=== PATIENT | female | born 1960 | race Caucasian/White ===

== ENCOUNTER 2019-12-25 10:03 | Outpatient (REF) | payer MEDICAID, OTHER, SELFPAY | END 2019-12-25 10:04 | disposition home or self-care (01) | LOC: HO.LAB 10:03 | PROVIDERS: Visit Provider Internal Medicine | DX: Z20.828 Contact with and (suspected) exposure to other viral communicable diseases (principal) | CPT/HCPCS: U0003 ==

== ENCOUNTER → 2020-05-14 19:28 | Outpatient (REF) | payer MEDICAID, OTHER, SELFPAY | LOC: HO.SL 19:28 | PROVIDERS: Visit Provider Internal Medicine | DX: G47.00 Insomnia, unspecified (principal) | CPT/HCPCS: 95810 ==

== ENCOUNTER 2020-05-31 13:26 | Outpatient (REF) | payer MEDICAID, OTHER, SELFPAY ==
--- NOTE | ~2020-05-31 | XR_ITS ---
EXAMINATION: CERVICAL SPINE AND SACRUM X-RAYS CLINICAL INFORMATION: Pain COMPARISON: None TECHNIQUE: 5 views of the cervical spine and 3 views of the sacrum FINDINGS: Cervical spine: Bone alignment is normal. No fracture or dislocation is seen. There is degenerative spondylosis and degenerative disc disease at C2-C3 and C4-C5. There is right-sided neuroforaminal narrowing from bony osteophyte at C2-C3 and C4-C5. Evaluation of left-sided neural foramina is limited due to patient positioning. Prevertebral soft tissues are normal. There are soft tissue calcifications posterior to the C4 spinous process. Sacrum: Bone alignment is normal. No fracture or dislocation is seen. The hip joints and sacroiliac joints are normal. Soft tissues are normal. XR/XR sacrum coccyx min 2V IMPRESSION: Cervical spine: Degenerative changes. Limited evaluation of the left neural foramen due to patient positioning. Sacrum and coccyx: Unremarkable exam
--- NOTE | ~2020-05-31 | XR_ITS ---
EXAMINATION: CERVICAL SPINE AND SACRUM X-RAYS CLINICAL INFORMATION: Pain COMPARISON: None TECHNIQUE: 5 views of the cervical spine and 3 views of the sacrum FINDINGS: Cervical spine: Bone alignment is normal. No fracture or dislocation is seen. There is degenerative spondylosis and degenerative disc disease at C2-C3 and C4-C5. There is right-sided neuroforaminal narrowing from bony osteophyte at C2-C3 and C4-C5. Evaluation of left-sided neural foramina is limited due to patient positioning. Prevertebral soft tissues are normal. There are soft tissue calcifications posterior to the C4 spinous process. Sacrum: Bone alignment is normal. No fracture or dislocation is seen. The hip joints and sacroiliac joints are normal. Soft tissues are normal. XR/XR cervical spine min 6V IMPRESSION: Cervical spine: Degenerative changes. Limited evaluation of the left neural foramen due to patient positioning. Sacrum and coccyx: Unremarkable exam
== END 2020-05-31 13:27 | disposition home or self-care (01) ==
LOC: HO.XRAY 13:26
PROVIDERS: PCP Internal Medicine; Visit Provider Internal Medicine
DX: M53.3 Sacrococcygeal disorders, not elsewhere classified (principal)
CPT/HCPCS: 72052; 72220

== ENCOUNTER 2020-06-08 13:17 | Outpatient (REF) | payer MEDICAID, OTHER, SELFPAY ==
--- NOTE | ~2020-06-08 | US_ITS ---
EXAMINATION: US ABDOMEN COMPLETE CLINICAL INFORMATION: Abnormal findings on diagnostic imaging. COMPARISON: CT abdomen and pelvis 04/20/2017. TECHNIQUE: Real-time imaging of the abdominal viscera. FINDINGS: PANCREAS: Normal. ABDOMINAL AORTA: The proximal, mid, and distal segments are normal in caliber. INFERIOR VENA CAVA: Visualized portions are normal. LIVER: The liver is normal in size. The liver contour is normal. Parenchymal echogenicity is normal. There are 2 simple appearing cyst within liver, one within the lateral segment (1.7 cm), the other within the caudate (1.6 cm). There is no intrahepatic biliary duct dilatation seen. GALLBLADDER: Surgically absent. COMMON BILE DUCT: Normal in caliber measuring 0.4 cm in diameter. RIGHT KIDNEY: Normal. No hydronephrosis. No renal calculi or focal parenchymal lesions. The kidney measures 9.3 cm in maximum dimension. LEFT KIDNEY: Normal. No hydronephrosis. No renal calculi or focal parenchymal lesions. The kidney measures 8.7 cm in maximum dimension. SPLEEN: Surgically absent. FREE FLUID: None. US/US abdomen complete IMPRESSION: There are 2 stable simple cysts within the liver, one within the lateral segment, the other within the caudate measuring up to 1.7 cm and 1.6 cm, respectively. No suspicious liver lesions. Cholecystectomy and splenectomy
== END 2020-06-08 13:18 | disposition home or self-care (01) ==
LOC: HO.US 13:17
PROVIDERS: Visit Provider Internal Medicine
DX: R93.5 Abnormal findings on diagnostic imaging of other abdominal regions, including retroperitoneum (principal)
CPT/HCPCS: 76700

== ENCOUNTER 2020-07-20 08:15 | Outpatient (REF) | payer MEDICAID, OTHER, SELFPAY ==
--- NOTE | ~2020-07-20 | CT_ITS ---
NECK CT WITH IV CONTRAST MAXILLOFACIAL CT WITH IV CONTRAST INDICATION: Chronic otitis externa bilaterally. Cervicalgia. COMPARISON: Cervical spine radiographs 05/31/2020. TECHNIQUE: Multidetector CT acquisition of the neck was obtained following the administration of 65cc of Omnipaque 350IV contrast. Multiplanar reformats were acquired and utilized for image interpretation. This CT examination was performed using dose optimization techniques as appropriate, variously including the following: *Automated exposure control *Adjustment of mA and/or kV according to patient size (this includes techniques or standardized protocols for targeted exams where dose is matched to indication/reason for exam; i.e. extremities or head) *Use of iterative reconstruction technique FINDINGS: There is no cervical lymphadenopathy. There is heterogeneous enhancement of the right parotid gland immediately below the right cartilaginous external auditory canal in a possible similar appearance to a lesser extent of the left parotid gland immediately below the left internal auditory canal. No definite cellulitis within the adjacent soft tissues. Findings could reflect bilateral parotitis however if symptoms do not improve following conservative therapy, a MRI would be recommended to exclude an intraparotid mass lesion. The submandibular glands are normal. The thyroid gland is normal. No contour abnormality or pathologic enhancement is seen within the oral cavity or pharyngeal mucosal space. No retropharyngeal fluid collection is seen. The laryngeal structures are normal. The parapharyngeal fat is preserved. The carotid sheath vasculature opacify normally. Retropharyngeal course of the left common carotid artery and the internal carotid arteries bilaterally. No extra mucosal soft tissue mass or fluid collection is seen. The superior mediastinum is unremarkable. The lung apices are clear. The maxillary sinuses, sphenoid sinuses, ethmoid air cells, and frontal sinuses are clear. The mastoid air cells and middle ear cavities are clear bilaterally. The TMJs are unremarkable. Inner ear structures are unremarkable. There is leftward deviation of the cartilaginous nasal septum and there is rightward deviation of the bony cartilaginous nasal septal junction. No periapical disease. 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 There is multilevel cervical spondylosis. Uncovertebral joint spurring and facet arthropathy result in moderate to severe right C3-C4 and severe right C5-C6 bony foraminal stenosis. The imaged portions of the brain parenchyma are unremarkable. CT/CT soft tissue neck w con IMPRESSION: - There is heterogeneous enhancement of the right parotid gland immediately below the right cartilaginous external auditory canal in a possible similar appearance to a lesser extent of the left parotid gland immediately below the left internal auditory canal. No definite cellulitis within the adjacent soft tissues. Findings could reflect bilateral parotitis however if symptoms do not improve following conservative therapy, a MRI would be recommended to exclude an intraparotid mass lesion. - No active sinus disease. The mastoid air cells and middle ear cavities are clear. - There is leftward deviation of the cartilaginous nasal septum and there is rightward deviation of the bony cartilaginous nasal septal junction. 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 - Congenital C2-C3 fusion. There is multilevel cervical spondylosis. Uncovertebral joint spurring and facet arthropathy result in moderate to severe right C3-C4 and severe right C5-C6 bony foraminal stenosis. - Retropharyngeal course of the left common carotid artery and the internal carotid arteries bilaterally.
[2020-07-20] MEDS: iohexoL 350 MG/ML 100 ML INFUS..BTL IV (10:43)
== END 2020-07-20 08:16 | disposition home or self-care (01) ==
LOC: HO.CT 08:15
PROVIDERS: PCP Internal Medicine; Visit Provider Internal Medicine
DX: M54.2 Cervicalgia (principal); H60.63 Unspecified chronic otitis externa, bilateral; R93.5 Abnormal findings on diagnostic imaging of other abdominal regions, including retroperitoneum
CPT/HCPCS: 70487; 70491; Q9967

== ENCOUNTER 2020-09-06 09:17 | Outpatient (REF) | payer MEDICAID, OTHER, SELFPAY ==
--- NOTE | ~2020-09-06 | MM_ITS ---
EXAMINATION: MM SCREENING DIGITAL BREAST TOMOSYNTHESIS, BILATERAL CLINICAL INFORMATION: Screening. Asymptomatic. The lifetime risk of breast cancer based on the Tyrer-Cuzick Model is 6%. COMPARISON: Mammography: 08/20/2019, 05/30/2018, 02/25/2017, outside exam 11/06/2016 ([facility]) TECHNIQUE: Digital breast tomosynthesis is performed in both the craniocaudal and mediolateral oblique views along with computer-aided detection (CAD). Synthesized 2D images are generated from the tomosynthesis. Additional right MLO view is provided. FINDINGS: There are scattered areas of fibroglandular density (ACR BI-RADS breast composition Category b). Parenchymal pattern is similar to prior studies. There are scattered bilateral stable nodularity. No developing density or architectural abnormality or abnormal calcifications. There is a dermal lesion marked with skin marker posterior medial left breast and a dermal lesion posterior inferior medial right breast also marked with skin marker. The axilla are unremarkable. MM/MM tomosynthesis screening BI IMPRESSION: No mammographic evidence of malignancy. ASSESSMENT: BI-RADS 2: Benign RECOMMENDATION: Routine annual mammography screening. This patient's information was entered into a reminder system with a target due date for their next mammogram.
== END 2020-09-06 09:18 | disposition home or self-care (01) ==
LOC: HO.MAMMO 09:17
PROVIDERS: Visit Provider Advanced Practice Midwife
DX: Z12.31 Encounter for screening mammogram for malignant neoplasm of breast (principal)
CPT/HCPCS: 77063; 77067

== ENCOUNTER 2021-10-02 14:20 | Outpatient (REF) | payer MEDICAID, SELFPAY ==
--- NOTE | ~2021-10-02 | MM_ITS ---
EXAMINATION: MM SCREENING DIGITAL BREAST TOMOSYNTHESIS, BILATERAL CLINICAL INFORMATION: Screening. Asymptomatic. The lifetime risk of breast cancer based on the Tyrer-Cuzick Model is 6%. COMPARISON: Mammography: 09/06/2020, 08/20/2019, 05/30/2018, 02/25/2017, outside mammography 11/06/2016 ([facility]). TECHNIQUE: Digital breast tomosynthesis is performed in both the craniocaudal and mediolateral oblique views along with computer-aided detection (CAD). Synthesized 2D images are generated from the tomosynthesis. FINDINGS: There are scattered areas of fibroglandular density (ACR BI-RADS breast composition Category b). There are chronic scattered benign-appearing smooth nodularity in both breasts, similar to prior studies. No abnormal calcifications. No architectural abnormality or developing density. The axilla and skin contours are unremarkable. No significant changes from prior exams. MM/MM tomosynthesis screening BI IMPRESSION: No mammographic evidence of malignancy. ASSESSMENT: BI-RADS 2: Benign RECOMMENDATION: Routine annual mammography screening. This patient's information was entered into a reminder system with a target due date for their next mammogram.
== END 2021-10-02 14:21 | disposition home or self-care (01) ==
LOC: HO.MAMMO 14:20
PROVIDERS: PCP Internal Medicine; Visit Provider Internal Medicine
DX: Z12.31 Encounter for screening mammogram for malignant neoplasm of breast (principal)
CPT/HCPCS: 77063; 77067

== ENCOUNTER 2021-11-21 08:49 | Outpatient (REF) | payer MEDICAID, SELFPAY ==
--- NOTE | ~2021-11-21 | US_ITS ---
EXAMINATION: US ABDOMEN COMPLETE CLINICAL INFORMATION: Disease of liver. COMPARISON: Ultrasound abdomen complete 06/08/2020. CT abdomen and pelvis 04/20/2017. TECHNIQUE: Real-time imaging of the abdominal viscera. FINDINGS: PANCREAS: Normal. ABDOMINAL AORTA: The proximal, mid, and distal segments are normal in caliber. INFERIOR VENA CAVA: Visualized portions are normal. LIVER: The liver is normal in size. The liver contour is normal. Parenchymal echogenicity is normal. Audible hepatic cysts are identified measuring up to 1.8 cm in the right lobe. These appear simple. There is no intrahepatic biliary duct dilatation seen. GALLBLADDER: Surgically absent. COMMON BILE DUCT: Normal in caliber measuring 0.6 cm in diameter. RIGHT KIDNEY: Normal. No hydronephrosis. No renal calculi or focal parenchymal lesions. The kidney measures 9.5 cm in maximum dimension. LEFT KIDNEY: Normal. No hydronephrosis. No renal calculi or focal parenchymal lesions. The kidney measures 9.0 cm in maximum dimension. SPLEEN: Normal. The spleen measures 7.2 cm in maximum dimension. FREE FLUID: None. US/US abdomen complete IMPRESSION: Multiple liver cysts which appear simple. No suspicious mass. Otherwise unremarkable abdominal ultrasound.
== END 2021-11-21 08:50 | disposition home or self-care (01) ==
LOC: HO.US 08:49
PROVIDERS: Visit Provider Internal Medicine
DX: K76.89 Other specified diseases of liver (principal)
CPT/HCPCS: 76700

== ENCOUNTER → 2022-10-08 15:00 | Outpatient (BNV) | payer MEDICAID, SELFPAY | PROVIDERS: PCP Internal Medicine; Visit Provider Radiology Diagnostic Radiology | DX: Z12.31 Encounter for screening mammogram for malignant neoplasm of breast (principal) | CPT/HCPCS: 77063; 77067 ==

== ENCOUNTER 2022-10-08 15:12 | Outpatient (REF) | payer MEDICAID, SELFPAY | END 2022-10-08 15:13 | disposition home or self-care (01) | LOC: HO.MAMMO 15:12 | PROVIDERS: PCP Internal Medicine; Visit Provider Internal Medicine | DX: Z12.31 Encounter for screening mammogram for malignant neoplasm of breast (principal) | CPT/HCPCS: 77063; 77067 ==

== ENCOUNTER 2022-11-07 11:30 | Emergency (ER) | payer MEDICAID, SELFPAY ==
--- NOTE | ~2022-11-07 | XR_ITS ---
EXAMINATION: XR LUMBOSACRAL SPINE CLINICAL INFORMATION: Back pain COMPARISON: Lumbar spine radiograph from 10/30/2018 TECHNIQUE: Three views of the lumbosacral spine. FINDINGS: 5 nonrib-bearing lumbar-type vertebral bodies. No acute visible fracture or dislocation. Very slight grade 1 anterolisthesis of L3 on L4. Very slight grade 1 retrolisthesis of L4 and L5. Mild multilevel degenerative changes with osteophyte formation and lower lumbar spine facet arthropathy. Vertebral body heights and disc spaces are otherwise maintained. Posterior elements are intact. Paraspinal soft tissues are unremarkable. Bowel gas is unremarkable. Surgical clips right upper quadrant abdomen. XR/XR lumbar spine 2-3V IMPRESSION: 1. No acute visible fracture or dislocation. 2. Very slight grade 1 anterolisthesis of L3 on L4 and very slight grade 1 retrolisthesis of L4 and L5. 3. Mild multilevel degenerative changes.
--- NOTE | ~2022-11-07 | XR_ITS ---
EXAMINATION: XR HIP, LEFT CLINICAL INFORMATION: Left hip pain COMPARISON: None available. TECHNIQUE: Multiple views of the pelvis 2 views the left hip FINDINGS: No acute visible fracture or dislocation. Mild degenerative images of the bilateral femoral acetabular joints with joint space narrowing and periarticular osteophyte formation. Enthesopathy along the bilateral greater trochanters. Degenerative arthropathy of the lumbosacral spine. Joint spaces and alignment are otherwise maintained. Soft tissues are unremarkable. XR/XR hip LT w PEL1V IMPRESSION: 1. No acute visible fracture or dislocation. 2. Mild degenerative images of the bilateral femoral acetabular joints. 3. Enthesopathy along the bilateral greater trochanters.
[2022-11-07 12:12] VITALS: BP 113/63; PULSE 75; RESP 18; TEMP 36.6; O2SAT 98; BMI 14.0
--- NOTE | 2022-11-07 12:13 | ED_ITS ---
HPI - General Adult General Chief complaint: Extremity Injury, Lower Stated complaint: L leg pain Time Seen by Provider: 11/07/22 14:09 Source: patient, family, RN notes reviewed and old records reviewed Mode of arrival: ambulatory History of Present Illness HPI narrative: 62-year-old female with past medical history arthritis presenting to the ED complaining of acute on chronic left-sided low back/hip pain radiating down left lower extremity with associated tingling. Admits pain has been going on for some time however worsened last night with difficulty ambulating secondary to pain. Denies known injury/trauma or fall, weakness, incontinence/retention, fever. Took muscle relaxer and Tylenol at home without relief. Related Data Previous Rx's Medication Instructions Recorded cyclobenzaprine 5 mg tablet 5 mg PO Q8H PRN pain (scale score 11/07/22 7-10) 5 days #14 tabs hydrocodone 5 mg-acetaminophen 325 1 tab PO Q8H PRN pain, severe 3 11/07/22 mg tablet days #9 tabs lidocaine 5 % topical patch 1 patch topical DAILY PRN pain #30 11/07/22 (Lidoderm) ea naproxen 500 mg tablet 500 mg PO BID PRN pain 10 days #20 11/07/22 tabs Allergies Allergy/AdvReac Type Severity Reaction Status Date / Time No Known Allergies Allergy Verified 11/07/22 12:12 [No Known Allergies*] Review of Systems Review of Systems: Constitutional: No Fever, No Chills ENT/Mouth: No Ear Pain, No Nasal Congestion, No Sinus Pain, No Hoarseness, No sore throat, No Rhinorrhea, No Swallowing Difficulty Cardiovascular: No Chest Pain, No SOB Respiratory: No Cough, No Sputum, No Wheezing Gastrointestinal: No Nausea, No Vomiting, No Diarrhea, No Constipation, No Abdominal pain Genitourinary: No Dysuria, No Urinary Frequency, No Hematuria, No Urinary Incontinence/retention, No Urgency, No Flank Pain Musculoskeletal: +joint pain, No Myalgias, No Joint Swelling Skin: No Skin Lesions, No rash Neuro: No Weakness, No Numbness, + Paresthesias Yes all other systems are reviewed and are negative Constitutional: Constitutional: Reports as per [facility] Past Medical History Attestation statement: The following information was validated with the patient. Source: old records reviewed Social History Social History Advance Directives: No Physical Exam ED Vital Signs: Vital Signs - 24 hr 11/07/22 12:12 Temperature 98 F Pulse Rate 75 Respiratory Rate 18 Blood Pressure 113/63 Pulse Oximetry 98 Oxygen Delivery Method Room Air BMI result Body Mass Index 14.0 Const General: cooperative, healthy appearing and no acute distress Orientation/consciousness: patient oriented x3 Limitations: no limitations HENMT Head: Yes normal to inspection and Yes atraumatic Ears: hearing grossly normal bilaterally General nose exam: Normal external nose present Face and sinus: Yes normal facial exam Eyes General: appearance normal, both eyes and all related structures EOM: EOMs intact bilaterally Neck Neck: Yes normal visual inspection and Yes no meningeal signs Resp Effort & Inspection: normal respiratory effort and no respiratory distress Cardio Rate: regular rate Heart sounds: S1 normal heart sound present and S2 normal heart sound present GI Inspection: Yes normal to inspection Palpation (GI): Soft to palpation, nontender, no guarding and not rigid General: Yes no CVA tenderness Back/Spine/Pelvis Other: No midline cervical/thoracic/lumbar spinous tenderness/step-off or deformity. + left-sided lower lumbar MSK tenderness to palpation reproducing subjective complaint. No ecchymosis/erythema or rash Back: no CVA tenderness Skin Rashes: no rashes Wounds: no wounds Neuro Other: Strength intact throughout. No saddle anesthesia. Sensation intact to light touch. Neurovascular intact distally. Ambulating with antalgic gait General: patient oriented x3, tone normal, moves all extremities and no meni ngeal signs Cranial nerves: Yes CN's II-XII intact bilaterally Gait exam (Neuro): Antalgic gait present, not ataxic and not wide-based Extrem General: Yes normal to inspection Course Course Course Narrative: This is an RME: Additional HPI, ROS, PE not included below will be deferred to primary provider. This is a [id number], with a hx of arthritis, presenting to the ER with complaints of left sided back pain and left leg pain since yesterday. The patient reports that she has a history of back pain currently going through physical therapy for. She states that while she was standing up history day she felt her low back pain exacerbated and now has been radiating down her left leg. Denies any urinary symptoms. No red flag back symptoms. Vital signs stable. Patient stable to return back to the waiting on mental treatment room becomes available. Plan: X-ray left hip lumbar spine XR hip LT w PEL1V/XR lumbar spine 2-3V IMPRESSION: 1. No acute visible fracture or dislocation. 2. Mild degenerative images of the bilateral femoral acetabular joints. 3. Enthesopathy along the bilateral greater trochanters. Results discussed with patient including worrisome signs and symptoms and strict return precautions, and when to return to the emergency department. They verbalized understanding and feel safe for discharge at this time. Medical Decision Making Medical Decision Making MDM Narrative: 62-year-old female with past medical history arthritis presenting to the ED complaining of acute on chronic left-sided low back/hip pain radiating down left lower extremity with associated tingling. On exam vital signs stable, NAD, nontoxic appearing with physical exam as above with reproducible MSK tenderness. Abdomen soft/nontender, no CVAT. No red flag symptoms or saddle anesthesia. Ambulating with antalgic gait. Concern for MSK pain/strain and sciatica versus osteoarthritis flare. Low suspicion for pyelo/renal stone contour intra- abdominal pathology, cauda equina/cord compression or acute fracture Plan: X-rays ordered in triage, pain control Please refer to course for remaining clinical decision making, interpretation of labs/imaging results, and discussions with consultants and/or family members. Differential Diagnosis Differential Diagnoses: The differential diagnosis associated with the presentation includes As above Independent Interpretation I performed an independent interpretation of an: Plain X-Ray Radiology Impression Discussion of test interpretation with radiology: I have reviewed the radiologist's reading. External Record Review External record reviewed: Inpatient record, Office record, Outpatient record, Prior outpatient labs, Prior outpatient radiology, Primary care record and Outside ED record Tests considered The following testing was considered but not selected: As above Prescription Management I considered prescription management with: Pain Medication Discharge Plan Discharge Clinical Impression: Sciatica Patient Disposition: Home, Self-Care Instructions: Sciatica (ED) Additional Instructions: Your x-ray shows arthritic changes please follow-up with her doctor as well as surgical specialist Your pain is likely musculoskeletal/sciatica Flexeril is a muscle relaxer, take at night as it makes you drowsy, do not drive, drink alcohol, or operate machinery while taking it Naproxen as an anti-inflammatory / pain medication, take with food Lidoderm patches are numbing patches, apply to painful area [place] as an opiate pain medication, take only when pain is severe for the next 3 days In addition take Tylenol at home If symptoms persist or worsen, pain becomes unbearable, you developed urinary retention or incontinence, or weakness return to the ED Prescriptions: New hydrocodone-acetaminophen 5-325 mg tablet 1 tab PO Q8H PRN (Reason: pain, severe) 3 Days Qty: 9 0RF Rx Instructions: Partial Fill upon patient request. lidocaine [Lidoderm] 5 % adhesive patch,medicated 1 patch topical DAILY MDD remove after 12 hours PRN (Reason: pain) Qty: 30 0RF Rx Instructions: leave on most painful area for up to 12 hrs naproxen 500 mg tablet 500 mg PO BID PRN (Reason: pain) 10 Days Qty: 20 0RF cyclobenzaprine 5 mg tablet 5 mg PO Q8H PRN (Reason: pain (scale score 7-10)) 5 Days Qty: 14 0RF Ref[place] [facility] [place] Conner Smith MD [Primary Care Provider] - Nato Ball MD, PhD [Physician] -
[2022-11-07] MEDS: Cyclobenzaprine HCl 10 MG TABLET PO (14:51)
[2022-11-07] MEDS: oxyCODONE HCl Immed Release 5 MG TABLET PO (14:52)
[2022-11-07] MEDS: Lidocaine 4 % Patch ADH..PATCH 1 PATCH TRANSDERMA (14:53)
[2022-11-07] MEDS: Ketorolac Tromethamine 30 MG/ML VIAL IM (14:53)
== END 2022-11-07 15:10 | disposition home or self-care (01) ==
PROVIDERS: Emergency Provider Student in an Organized Health Care Education/Training Program; PCP Internal Medicine
DX: M54.42 Lumbago with sciatica, left side (principal); Z79.899 Other long term (current) drug therapy
CPT/HCPCS: 72100; 73502; 96372; 99283; 99284; J1885

== ENCOUNTER 2022-12-25 10:59 | Outpatient (REF) | payer MEDICAID, SELFPAY ==
--- NOTE | ~2022-12-25 | XR_ITS ---
EXAMINATION: XR HIP, RIGHT CLINICAL INFORMATION: Right hip pain for one month with normal width of the pubic COMPARISON: None available. TECHNIQUE: Two views of the right hip. FINDINGS: No fracture. Alignment is anatomic. Hip joint space is maintained. Soft tissues are unremarkable. There is widening of the pubic symphysis. XR/XR hip RT min 2V IMPRESSION: Normal bony abnormality of the right hip. Widening of the pubic symphysis.
[2022-12-25 14:06] LABS: TSH reflex Free T4 0.28 uIU/mL (0.32-4.0)
[2022-12-25 14:48] LABS: Free T4 (Free Thyroxine) 1.27 ng/dL (0.71-1.85)
== END 2022-12-25 11:00 | disposition home or self-care (01) ==
LOC: HO.HHCL 10:59
PROVIDERS: Visit Provider Internal Medicine
DX: E03.9 Hypothyroidism, unspecified (principal); Z13.89 Encounter for screening for other disorder
CPT/HCPCS: 36415; 73502; 84439; 84443

== ENCOUNTER 2023-03-27 11:15 | Outpatient (REF) | payer MEDICAID, SELFPAY ==
[2023-03-27 14:02] LABS: TSH reflex Free T4 2.46 uIU/mL (0.32-4.0)
== END 2023-03-27 11:16 | disposition home or self-care (01) ==
LOC: HO.HHCL 11:15
PROVIDERS: Visit Provider Internal Medicine
DX: E03.9 Hypothyroidism, unspecified (principal)
CPT/HCPCS: 36415; 84443

== ENCOUNTER 2023-09-03 10:50 | Outpatient (REF) | payer MEDICAID, SELFPAY ==
[2023-09-03 14:07] LABS: Cholesterol 176 mg/dL (<200); HDL Cholesterol 65 mg/dL (>40); LDL Cholesterol Calculated 98 mg/dL (<100); Triglycerides 65 mg/dL (<150); Uric Acid 5.2 mg/dL (2.4-5.7)
[2023-09-03 14:15] LABS: TSH reflex Free T4 2.13 uIU/mL (0.32-4.0)
== END 2023-09-03 10:51 | disposition home or self-care (01) ==
LOC: HO.HHCL 10:50
PROVIDERS: Visit Provider Internal Medicine
DX: E03.9 Hypothyroidism, unspecified (principal); M25.561 Pain in right knee; M25.562 Pain in left knee; G89.29 Other chronic pain
CPT/HCPCS: 36415; 80061; 84443; 84550

== ENCOUNTER 2023-11-07 10:40 | Emergency (ER) | payer MEDICAID, SELFPAY ==
--- NOTE | ~2023-11-07 | US_ITS ---
EXAMINATION: US TRIPLEX LOWER EXTREMITY, RIGHT CLINICAL INFORMATION: Calf pain, recent flight COMPARISON: None available. TECHNIQUE: Color-flow triplex imaging with spectral analysis and compression Doppler were performed on the right lower extremity. FINDINGS: Respiratory variation, normal compression and augmented flow are noted throughout the right lower extremity. The visualized common femoral vein, superficial femoral vein, profunda femoral vein, popliteal vein and midcalf peroneal and posterior tibial venous segments show no evidence of deep venous thrombosis. There is no Louise's cyst. US/US venous duplex LE RT IMPRESSION: No evidence of deep venous thrombosis involving the right lower extremity. Electronically signed by: Claribel Miller MD 11/07/2023 12:00 PM EDT
--- NOTE | ~2023-11-07 | XR_ITS ---
EXAMINATION: XR LUMBOSACRAL SPINE CLINICAL INFORMATION: Right lumbar and hip pain COMPARISON: Lumbar spine x-ray on 11/07/2022 TECHNIQUE: Three views of the lumbosacral spine. FINDINGS: Minimal anterolisthesis at L3-L4. Vertebral body heights are maintained. Multilevel loss of intervertebral disc space with endplate degenerative changes. There is facet arthropathy in the lower lumbar spine. XR/XR lumbar spine 2-3V IMPRESSION: Mild degenerative disease of the lumbar spine. Electronically signed by: Claribel Miller MD 11/07/2023 12:01 PM EDT
[2023-11-07 11:05] VITALS: BP 125/78; PULSE 89; RESP 16; TEMP 36.8; O2SAT 98; BMI 28.5
--- NOTE | 2023-11-07 11:11 | ED.EXTPRO ---
HPI - Extremity Problem General Chief complaint: Extremity Problem Stated complaint: R leg numbness Time Seen by Provider: 11/07/23 12:01 Source: patient Mode of arrival: ambulatory Limitations: no limitations History of Present Illness ED Provider: Ronaldo Main PA-C HPI Narrative: 63-year-old female history of arthritis and thyroid disease presents to ED for back pain radiating down right leg with sharp tingling sensation right lower extremity. Patient [place] Patient denies any chest pain or shortness of breath. Patient states back pain exacerbation similar to her sciatica pain she has in the past. Patient denies any recent trauma. Patient denies any coughing up blood chest pain or shortness of breath. Patient denies any urinary/bowel incontinence. Patient denies any paralysis of lower extremity or inability to walk. Patient has history of chronic back pain arthritis Related Data Previous Rx's ?Medication ?Instructions ?Recorded cyclobenzaprine 5 mg tablet 5 mg PO Q8H PRN pain (scale score 11/07/22 7-10) 5 days #14 tabs hydrocodone 5 mg-acetaminophen 325 1 tab PO Q8H PRN pain, severe 3 11/07/22 mg tablet days #9 tabs lidocaine 5 % topical patch 1 patch topical DAILY PRN pain #30 11/07/22 (Lidoderm) ea naproxen 500 mg tablet 500 mg PO BID PRN pain 10 days #20 11/07/22 tabs walker #1 ea 11/07/22 cyclobenzaprine 10 mg tablet 10 mg PO BEDTIME PRN muscle spasm 11/07/23 #7 tabs lidocaine 4 % topical patch 1 patch topical DAILY PRN pain #30 11/07/23 ea prednisone 20 mg tablet 40 mg (2 x 20 mg) PO DAILY 5 days 11/07/23 #10 tabs Allergies Allergy/AdvReac Type Severity Reaction Status Date / Time No Known Allergies Allergy Verified 11/07/23 11:10 [No Known Allergies*] Review of Systems Review of Systems: Chronic back pain radiating down right leg Yes all other systems are reviewed and are negative [facility] Social History Social History Advance Directives: No Advance Directives Information Provided: Yes Patient : No Physical Exam Vital Signs: Vital Signs: Last Vital Signs Temp 98.3 F 11/07/23 13:57 Pulse 89 11/07/23 13:57 Resp 16 11/07/23 13:57 BP 125/78 11/07/23 13:57 Pulse Ox 98 11/07/23 13:57 O2 Del Method Room Air 11/07/23 13:57 BMI result Body Mass Index 28.5 Const: General: cooperative, healthy appearing, comfortable, no acute distress, well developed, alert and awake Orientation/consciousness: patient oriented x3 HEENT: Head: Yes normal to inspection, Yes No palpable skull fracture present, Yes normocephalic and Yes atraumatic Ears: hearing grossly normal bilaterally, external ears normal, TM's normal bilaterally, TM normal on the right, TM normal on the left, EAC's normal, mastoids normal and no periauricular adenopathy Throat: Yes posterior oropharynx normal, Yes tonsils normal and Yes uvula midline Eyes: General: appearance normal, both eyes and all related structures Neck: Neck: Yes normal visual inspection, Yes full ROM, Yes no lymphadenopathy, Yes no meningeal signs, Yes trachea midline, Yes supple, No anterior neck swelling and No tender Chest: Chest palpation & inspection: normal inspection of the chest and normal palpation of entire chest wall Resp: Effort & Inspection: normal respiratory effort and able to speak in complete sentences Auscultation: clear to auscultation bilaterally Cardio: Jugular venous distension: no JVD Heart sounds: S1 normal heart sound present and S2 normal heart sound present GI: Inspection: Yes normal to inspection Palpation (GI): Soft to palpation, not firm, nontender, no guarding and not rigid : General: No CVA tenderness and Yes no CVA tenderness Back/Spine/Pelvis: Other: Negative for spinous tenderness Back: no CVA tenderness, No CVA tenderness and No back tenderness Back/spine/pelvis image: 1. Positive for gluteus marya sciatica tenderness on palpation. Negative for erythema, ecchymosis, mass, or deformity. Skin: General skin exam: no rashes or lesions noted, elasticity normal and turgor normal Neuro: General: patient oriented x3, gait normal, tone normal, moves all extremities, Normal light touch and pain sensation, no meningeal signs, no focal motor deficits, CN's II-XI intact bilaterally and normal sensation to monofilament Extrem: Other: Bilateral lower extremity negative for swelling, pitting edema, or calf tenderness. Bilateral lower extremity motor/neuro/vascular exam intact. General: Yes normal to inspection, Yes full ROM and Yes capillary refill normal Psych: Appearance: grossly normal, well kempt and not disheveled Course Course Course Narrative: This is a Rapid Medical Examination (RME) performed by Dai Frias PA-C in triage. Full HPI, ROS, assessment and treatment plan per primary provider in the Main ED. 63 yo female hx of arthritis, sciatica here for eval of RLE pain beginning in her right hip, extending down entire leg x3 weeks. assoc numbness and right calf pain. admits this began 1 wk after multiple flights/ car rides to/ around [place] and [place]. does not feel like her typical sciatica. no cp, sob. no hx VTE. not on AC. + pt in wheelchair. no notable erythema/ swelling to RLE. Plan: basic labs, lumbar xr, RLE venous duplex Medications Administered Discontinued Medications Generic Name Dose Route Start Last Admin Trade Name Brock PRN Reason Stop Dose Admin Ketorolac Tromethamine 30 mg 11/07/23 13:23 11/07/23 13:40 Ketorolac Tromethamine 30 Mg/Ml Vial IVPUSH 11/07/23 13:24 Not Given ONCE ONE Ketorolac Tromethamine 30 mg 11/07/23 13:32 11/07/23 13:34 Ketorolac Tromethamine 30 Mg/Ml Vial IM 11/07/23 13:33 30 mg ONCE ONE Administration Prednisone 40 mg 11/07/23 13:23 11/07/23 13:32 Prednisone 20 Mg Tablet PO 11/07/23 13:24 40 mg ONCE ONE Administration Medical Decision Making Medical Decision Making [facility] Narrative: 63-year-old female presents to ED for low back pain radiating down right leg with tingling sensation. Patient denies any urinary/bowel incontinence. Patient denies any history of IV drug use. Patient denies any recent trauma. Patient denies any chest pain or shortness of breath. Right lower extremity negative for DVT. Not suspecting pulmonary embolus. Lumbar spine x-ray shows lumbar radiculopathy. Not suspecting cauda equinus syndrome or epidural abscess. Not suspecting kidney stones or UTI. Patient is safe for discharge. Patient explained worrisome signs. Not suspecting compartment syndrome. Not suspecting arterial occlusion. Differential Diagnosis Differential Diagnoses: The differential diagnosis associated with the presentation includes (Sciatica, lumbar radiculopathy, DVT) Admission/Observation Consideration of admission/observation: Escalation of care including admission/observation considered Lab Data MDM Lab Attestation statement: I reviewed the patient's lab results. 11/07/23 12:23 11/07/23 12:23 Labs: Lab Results 11/07/23 Range/Units 12:23 WBC 5.0 (4.8-10.8) X10*3/uL RBC 4.56 (4.20-5.50) X10*6/uL Hgb 12.9 (12.0-16.0) g/dl Hct 39.7 (37.0-47.0) % MCV 87.1 (80.0-98.0) fL MCH 28.3 (27.0-33.0) pg MCHC 32.5 (31.0-35.0) g/dl RDW 13.6 (11.0-16.0) % Plt Count 294 (160-400) X10*3/uL MPV 8.6 L (9.4-12.3) fL Immature Gran % (Auto) 0.4 (0.0-0.4) % Neut % (Auto) 41.5 L (45-73) % Lymph % (Auto) 36.9 (20-40) % [place] % (Auto) 14.0 H (2-11) % Eos % (Auto) 5.6 H (0-4) % Baso % (Auto) 1.6 (0-2) % Lymph # (Auto) 1.9 (1.2-4.9) X10*3/uL [place] # (Auto) 0.7 (0.1-1.2) X10*3/uL Eos # (Auto) 0.3 (0.0-0.4) X10*3/uL Baso # (Auto) 0.1 (0.0-0.2) X10*3/uL Abs Immat Gran (auto) 0.02 (0.00-0.03) X10*3/uL Absolute Neuts (auto) 2.1 (2.0-8.3) x10*3/uL Absolute Nucleated RBC 0.000 (0.0-0.012) X10*3/uL Nucleated RBC % (auto) 0.0 (0.0-0.2) /100WBC Sodium 141 (135-145) mmol/L Potassium 4.4 (3.3-5.1) mmol/L Chloride 109 H (96-108) mmol/L Carbon Dioxide 24 (22-29) mmol/L Anion Gap 12 (12-20) BUN 19 H (9-16) mg/dL Creatinine 0.68 (0.5-1.4) mg/dL Estim Creat Clear Calc 69.7 Estimated GFR > 60 Random Glucose 93 (60-115) mg/dL Calcium 9.3 (8.4-10.2) mg/dL Magnesium 2.5 (1.6-2.6) mg/dL Total Bilirubin 0.4 (0.0-1.0) mg/dL AST 23 (5-31) U/L ALT 23 (0-31) U/L Alkaline Phosphatase 76 (39-117) U/L Total Protein 6.9 (6.5-8.0) g/dL Albumin 4.0 (3.5-5.0) g/dL Independent Interpretation I performed an independent interpretation of an: Plain X-Ray Radiology Impression Discussion of test interpretation with radiology: I have reviewed the radiologist's reading. Independent Historian Clinical information obtained from an independent historian. History obtained from or confirmed by: Other (Patient, daughter) External Record Review External record reviewed: Other (Prior visits) Prescription Management I considered prescription management with: Pain Medication and Other (Steroid, lidocaine patch) Discharge Plan Discharge Clinical Impression: Lumbar radiculopathy, Sciatica Patient Disposition: Home, Self-Care Instructions: Sciatica (ED), Lumbar Radiculopathy (ED), Back Pain (ED) Additional Instructions: Lower extremity ultrasound came back negative for DVT. Labs were normal. X-ray shows lumbar radiculopathy. Recommend follow-up with your primary care provider for possible physical therapy referral and if no improvement you may need outpatient MRI. Return to the ED immediately for any urinary/bowel incontinence, severe back pain, paralysis of lower extremities, inability to walk, nausea, vomiting, dysuria, hematuria, flank pain, fever, chill, or any other concerning symptoms. Continue using meloxicam for pain. FINDINGS: Minimal anterolisthesis at L3-L4. Vertebral body heights are maintained. Multilevel loss of intervertebral disc space with endplate degenerative changes. There is facet arthropathy in the lower lumbar spine. XR/XR lumbar spine 2-3V IMPRESSION: Mild degenerative disease of the lumbar spine. Electronically signed by: Claribel Miller MD 11/07/2023 12:01 PM EDT RP US/US venous duplex LE RT IMPRESSION: No evidence of deep venous thrombosis involving the right lower extremity. Electronically signed by: Claribel Miller MD 11/07/2023 12:00 PM EDT RP Prescriptions: New prednisone 20 mg tablet 40 mg PO DAILY 5 Days Qty: 10 0RF lidocaine 4 % adhesive patch,medicated 1 patch topical DAILY PRN (Reason: pain) Qty: 30 0RF cyclobenzaprine 10 mg tablet 10 mg PO BEDTIME PRN (Reason: muscle spasm) Qty: 7 0RF Rx Instructions: side effect is drowsiness. Do not take at work or while driving. No Action hydrocodone-acetaminophen 5-325 mg tablet 1 tab PO Q8H PRN (Reason: pain, severe) 3 Days Qty: 9 0RF Rx Instructions: Partial Fill upon patient request. lidocaine [Lidoderm] 5 % adhesive patch,medicated 1 patch topical DAILY MDD remove after 12 hours PRN (Reason: pain) Qty: 30 0RF Rx Instructions: leave on most painful area for up to 12 hrs naproxen 500 mg tablet 500 mg PO BID PRN (Reason: pain) 10 Days Qty: 20 0RF cyclobenzaprine 5 mg tablet 5 mg PO Q8H PRN (Reason: pain (scale score 7-10)) 5 Days Qty: 14 0RF (DME) walker Misc See Rx Instructions .Route Qty: 1 0RF Rx Instructions: As directed Interventions: ED Discharge Assessment Last Done: 11/07/23 13:57 Discharge Date/Time: 11/07/23 13:58 Print Language: Tab
--- OUTSIDE RECORDS SUMMARY | 2023-11-07 12:11 | XMS_ITS | Continuity of Care Document ---
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 Start Date: 04/02/23 Status: Ordered Estrace Vaginal Cream 0.1 mg/g = 1 Gm, Vaginally, Daily at bedtime, 0 Refills, Maintenance, 09/07/21 10:41:00 EDT, Partial fill upon patient request if the prescription is for a schedule II opioid drug. Start Date: 09/07/21 Status: Ordered levothyroxine 75 mcg (0.075 mg) oral capsule 1 capsule = 75 mcg, By Mouth, Daily, 0 Refills, Maintenance, 09/07/21 10:40:00 EDT, Partial fill upon patient request if the prescription is for a schedule II opioid drug. Start Date: 09/07/21 Status: Ordered meloxicam 15 mg oral tablet 1 tablet = 15 mg, By Mouth, Daily, 0 Refills, Maintenance, 09/07/21 10:41:00 EDT, Partial fill uponpatient request if the prescription is for a schedule II opioid drug. Start Date: 09/07/21 Status: Ordered Multivitamin Daily, 0 Refills, Maintenance, 09/07/21 10:39:00 EDT, Partial fill upon patient request if the prescription is for a schedule II opioid drug. Start Date: 09/07/21 Status: Ordered Myrbetriq 25 mg oral tablet, extended release 1 tablet = 25 mg, By Mouth, Daily, # 30 tablet, 5 Refills, Maintenance, 02/26/22 12:36:00 EST, [facility]/pharmacy #[id number], Partial fill upon patient request if the prescription is for a schedule II opioid drug., 68.5, kg, 12/04/21 14:09:00 EDT, Dry Weight Start Date: 02/26/22 Status: Ordered Omeprazole = 20 mg, By Mouth, Daily, 0 Refills, Maintenance, 04/02/23 13:48:00 EST, Partial fill upon patient request if the prescription is for a schedule II opioid drug. Start Date: 04/02/23 Status: Ordered Oyster Shell Calcium 1250 mg (500 mg elemental calcium) oral tablet TAKE 1 TABLET BY MOUTH EVERY DAY*TOO SOON Start Date: 04/02/23 Status: Ordered propranolol 10 mg oral tablet 5 mg, By Mouth, 2 times a day, Refills 0, Maintenance, 09/07/21 10:40:00 EDT, Partial fill upon patient request if the prescription is for a schedule II opioid drug. Start Date: 09/07/21 Status: Ordered rOPINIRole 0.25 mg oral tablet 1 tablet = 0.25 mg, TAKE 1 TABLET BY MOUTH EVERYDAY AT BEDTIME Start Date: 04/02/23 Status: Ordered traZODone 50 mg oral tablet 50 mg, 1, tablet, By Mouth, 2 times a day, Refills 0, Maintenance, 09/07/21 10:39:00 EDT, Partial fill upon patient request if the prescription is for a schedule II opioid drug. Start Date: 09/07/21 Status: Ordered Vitamin D3 1000 intl units oral capsule 1 capsule = 25 mcg, By Mouth, Daily, 0 Refills, Maintenance, 09/07/21 10:39:00 EDT, Partial fill upon patient request if the prescription is for a schedule II opioid drug. Start Date: 09/07/21 Status: Ordered Problem List Condition Confirmation Course Effective Dates Status H ealth Status Informant Atypical squamous cells of undetermined significance on anal Papanicolaou smear Confirmed Active Chest pain Confirmed Active Hypothyroid Confirmed Active Preferred language is Korean Confirmed Active Mixed urinary incontinence Confirmed Active Osteoarthritis of knee Confirmed Active Social History Social History Type Response Smoking Status Never (less than 100 in lifetime) entered on: 09/07/21 Sex Cardiology * Event Display: EKG Non BH Authored Date: * Event Display: EKG Non Authored Date: Laboratory * Event Display: Non Lab Results Authored Date: Patient Care team information Care Team Personnel Name: Sarah BOYCE, Conner Michelle Position: S Outreach Member Role: PCP Address: Address: [address] [place] [address]- Care Team Related Persons Name: GLENNA JAIN
--- OUTSIDE RECORDS SUMMARY | 2023-11-07 12:11 | XMS_ITS | Continuity of Care Document ---
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 Name Role Phone Sarah BOYCE, Conner Michelle Primary Care Physi noemy Encounter [facility] Date(s): 05/13/22 - 06/12/22 [facility] [address] [facility] [place], [place] [address] Attending Physician: Yuli Richardson Admitting Physician: Yuli Richardson Referring Physician: trYuli Medications calcium carbonate 1250 mg (500 mg elemental calcium) oral tablet 1,250 mg, 1, tablet, By Mouth, 2 times a day, # 60 tablet, Refills 0, Maintenance, 09/07/21 10:40:00 EDT, Partial fill upon patient request if the prescription is for a schedule II opioid drug. Start Date: 09/07/21 Status: Ordered Estrace Vaginal Cream 0.1 mg/g [...] tablet, 5 Refills, Maintenance, 02/26/22 12:36:00 EST, [facility]/pharmacy #[id number], Partial fill upon patient request if the prescription is for a schedule II opioid drug., 68.5, kg, 12/04/21 14:09:00 EDT, Dry Weight Start Date: 02/26/22 Status: Ordered propranolol 10 mg oral tablet 10 mg, 1, tablet, By Mouth, 2 times a day, Refills 0, Maintenance, 09/07/21 10:40:00 EDT, Partial fill upon patient request if the prescription is for a schedule II opioid drug. Start Date: 09/07/21 Status: Ordered traZODone 50 mg oral tablet [...] significance on anal Papanicolaou smear Confirmed Active Hypothyroid Confirmed Active Preferred language is French Confirmed Active Mixed urinary incontinence Confirmed Active Osteoarthritis of knee Confirmed Active Social History Social History Type Response Smoking Status Never (less than 100 in lifetime) entered on: 09/07/21 Sex Patient Care team information Care Team Personnel Name: Sarah BOYCE, Conner Michelle Position: S Outreach Member Role: PCP Address: Address: [address] [place] [address]
--- OUTSIDE RECORDS SUMMARY | 2023-11-07 12:11 | XMS_ITS | Continuity of Care Document ---
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 Name Role Phone Sarah BOYCE, Conner Michelle Primary Care Physi noemy Encounter [facility] Date(s): 10/25/22 - 11/24/22 [facility] [address] [place] [id number]- Medications calcium carbonate 1250 mg (500 mg [...] tablet, 5 Refills, Maintenance, 02/26/22 12:36:00 EST, [facility]/pharmacy #[id number], Partial fill upon patient request if the [...] Active Hypothyroid Confirmed Active Preferred language is Yi Confirmed Active Mixed urinary incontinence Confirmed Active Osteoarthritis of knee Confirmed Active Social History Social History Type Response Smoking Status Never (less than 100 in lifetime) entered on: 09/07/21 Sex Patient Care team information Care Team Personnel Name: Sarah BOYCE, Conner Michelle Position: S Outreach Member Role: PCP Address: Address: [address] [place] [address]-
[2023-11-07 12:27] LABS: MANUAL DIFF FLAG NO
[2023-11-07 12:29] LABS: Basophils Absolute Auto 0.1 X10*3/uL (0.0-0.2); Basophils Percent Auto 1.6 % (0-2); Eosinophils Absolute Auto 0.3 X10*3/uL (0.0-0.4); Eosinophils Percent Auto 5.6 % (0-4); Hematocrit 39.7 % (37.0-47.0); Hemoglobin 12.9 g/dl (12.0-16.0); Imm Gran Abs Auto 0.02 X10*3/uL (0.00-0.03); Imm Gran Pct Auto 0.4 % (0.0-0.4); Lymphocytes Absolute Auto 1.9 X10*3/uL (1.2-4.9); Lymphocytes Percent Auto 36.9 % (20-40); Mean Corpuscular HGB Conc 32.5 g/dl (31.0-35.0); Mean Corpuscular Hemoglobin 28.3 pg (27.0-33.0); Mean Corpuscular Volume 87.1 fL (80.0-98.0); Mean Platelet Volume 8.6 fL (9.4-12.3); Monocytes Absolute Auto 0.7 X10*3/uL (0.1-1.2); Neutrophils Absolute Auto 2.1 x10*3/uL (2.0-8.3); Neutrophils Percent Auto 41.5 % (45-73); Platelet Count 294 X10*3/uL (160-400); Red Blood Count 4.56 X10*6/uL (4.20-5.50); Red Cell Distribution Width 13.6 % (11.0-16.0)
[2023-11-07 12:45] LABS: Alanine Aminotransferase 23 U/L (0-31); Alkaline Phosphatase 76 U/L (39-117); Anion Gap 12 (12-20); Aspartate Amino Transferase 23 U/L (5-31); Bilirubin Total 0.4 mg/dL (0.0-1.0); Blood Urea Nitrogen 19 mg/dL (9-16); Calcium 9.3 mg/dL (8.4-10.2); Carbon Dioxide 24 mmol/L (22-29); Chloride 109 mmol/L (96-108); Creatinine Clr Calc Pharmacy 69.7; Estimated Glomerular Filt Rate > 60; Glucose Random 93 mg/dL (60-115); Magnesium 2.5 mg/dL (1.6-2.6); Potassium 4.4 mmol/L (3.3-5.1); Sodium 141 mmol/L (135-145); Total Protein 6.9 g/dL (6.5-8.0)
[2023-11-07] MEDS: predniSONE 20 MG TABLET 40 MG PO (13:32)
[2023-11-07] MEDS: Ketorolac Tromethamine 30 MG/ML VIAL IM (13:34)
[2023-11-07 13:57] VITALS: BP 125/78; PULSE 89; RESP 16; TEMP 36.8; O2SAT 98
== END 2023-11-07 13:58 | disposition home or self-care (01) ==
PROVIDERS: Physician Assistant Medical; Emergency Provider Emergency Medicine; PCP Internal Medicine
DX: M54.16 Radiculopathy, lumbar region (principal); M54.41 Lumbago with sciatica, right side
CPT/HCPCS: 36415; 72100; 80053; 83735; 85025; 93971; 96372; 96374; 99284; J1885

== ENCOUNTER → 2023-11-20 16:15 | Outpatient (BNV) | payer MEDICAID, SELFPAY | PROVIDERS: PCP Internal Medicine; Visit Provider Internal Medicine | DX: Z12.31 Encounter for screening mammogram for malignant neoplasm of breast (principal) | CPT/HCPCS: 77063; 77067 ==

== ENCOUNTER 2023-11-20 16:16 | Outpatient (REF) | payer MEDICAID, SELFPAY ==
--- NOTE | ~2023-11-20 | MM_ITS ---
EXAMINATION: MM SCREENING DIGITAL BREAST TOMOSYNTHESIS, BILATERAL CLINICAL INFORMATION: Screening. Asymptomatic. COMPARISON: Mammography: Comparison is made with available priors TECHNIQUE: Digital breast mammography with tomosynthesis is performed in both the craniocaudal and mediolateral oblique views along with computer-aided detection (CAD). FINDINGS: There are scattered areas of fibroglandular density (ACR BI-RADS breast composition Category b). There are no significant masses, abnormal calcifications, or other abnormalities. MM/MM tomosynthesis screening BI IMPRESSION: No mammographic evidence of malignancy. ASSESSMENT: BI-RADS BI-RADS 1 - Negative RECOMMENDATION: Routine annual mammography screening. 1 year F/U This examination should not preclude the clinical evaluation of a suspicious palpable abnormality. This patient's information was entered into a reminder system with a target due date for their next mammogram. Electronically signed by: Ericka Guerrier DO 12/02/2023 05:52 PM EDT
== END 2023-11-20 16:17 | disposition home or self-care (01) ==
LOC: HO.MAMMO 16:16
PROVIDERS: PCP Internal Medicine; Visit Provider Internal Medicine
DX: Z12.31 Encounter for screening mammogram for malignant neoplasm of breast (principal)
CPT/HCPCS: 77063; 77067

== ENCOUNTER 2024-02-09 10:35 | Outpatient (REF) | payer MEDICAID, SELFPAY ==
--- NOTE | ~2024-02-09 | XR_ITS ---
EXAMINATION: XR HIP, RIGHT CLINICAL INFORMATION: right hip pain COMPARISON: X-ray 12/25/2022 TECHNIQUE: Two views of the right hip. FINDINGS: No fracture. Alignment is anatomic. Hip joint space is maintained. Soft tissues are unremarkable. Redemonstrated is widening of the symphysis pubis. XR/XR hip RT min 2V IMPRESSION: No acute osseous findings. Redemonstrated widening of the pubic symphysis.. Electronically signed by: Jg Lemus MD 02/09/2024 03:43 PM KYLE SOARES
[2024-02-09 12:13] LABS: MANUAL DIFF FLAG NO
[2024-02-09 12:29] LABS: Basophils Percent Auto 0.9 % (0-2); Eosinophils Absolute Auto 0.1 X10*3/uL (0.0-0.4); Eosinophils Percent Auto 2.5 % (0-4); Hematocrit 39.4 % (37.0-47.0); Hemoglobin 12.6 g/dl (12.0-16.0); Imm Gran Abs Auto 0.02 X10*3/uL (0.00-0.03); Imm Gran Pct Auto 0.5 % (0.0-0.4); Lymphocytes Absolute Auto 1.7 X10*3/uL (1.2-4.9); Lymphocytes Percent Auto 40.1 % (20-40); Mean Corpuscular Hemoglobin 28.1 pg (27.0-33.0); Mean Corpuscular Volume 87.8 fL (80.0-98.0); Mean Platelet Volume 9.1 fL (9.4-12.3); Monocytes Absolute Auto 0.5 X10*3/uL (0.1-1.2); Monocytes Percent Auto 11.1 % (2-11); Neutrophils Percent Auto 44.9 % (45-73); Platelet Count 287 X10*3/uL (160-400); Red Blood Count 4.49 X10*6/uL (4.20-5.50); Red Cell Distribution Width 12.3 % (11.0-16.0); White Blood Count 4.3 X10*3/uL (4.8-10.8)
[2024-02-09 12:43] LABS: Uric Acid 4.4 mg/dL (2.4-5.7)
[2024-02-09 13:01] LABS: TSH reflex Free T4 1.76 uIU/mL (0.32-4.0)
[2024-02-09 13:11] LABS: Vitamin B12 508 pg/mL (200-900)
== END 2024-02-09 10:36 | disposition home or self-care (01) ==
LOC: HO.HHCL 10:35
PROVIDERS: Visit Provider Internal Medicine
DX: E03.9 Hypothyroidism, unspecified (principal); M54.2 Cervicalgia; G89.29 Other chronic pain; M54.41 Lumbago with sciatica, right side
CPT/HCPCS: 36415; 73502; 82306; 82607; 82746; 84443; 84550; 85025

== ENCOUNTER 2024-03-02 | Outpatient (REF) | payer MEDICAID, SELFPAY ==
--- NOTE | ~2024-03-02 | MR_ITS ---
EXAMINATION: MR LUMBAR SPINE WITHOUT IV CONTRAST History: severe right sided low back pain with associated toe numbness Technique: Sagittal T1, T2 and STIR, and axial T1 and T2 weighted images of the lumbar spine were obtained per departmental protocol. Comparison: Correlation is made with plain films of the lumbar spine dated 11/07/2023. Findings: The vertebral bodies maintain normal height and marrow signal intensity. There is slight spondylolisthesis of L3 on L4. There is mild degenerative disc disease with disc desiccation and loss of disc height. At L1-2, there is a mild disc bulge. There is facet and ligamentum flavum hypertrophy causing mild central spinal stenosis. The neural foramen are patent. At L2-3, there is a mild disc bulge. There is facet osteoarthritis causing mild central spinal stenosis. The neural foramen are patent. At L3-4, there is uncovering of the intervertebral discs secondary to spondylolisthesis. In addition, there is a moderate disc bulge with central annular tear. There is severe facet osteoarthritis with resultant severe central spinal stenosis and bilateral neural foraminal narrowing. At L4-5, there is a diffuse moderate disc bulge. There is a superimposed moderate right lateral disc herniation. There is facet and ligamentum flavum hypertrophy. There is resultant moderate to severe central spinal stenosis. There is marked narrowing of the right neural foramen. There is narrowing of the inferior recess of the left neural foramen. At L5-S1, there is mild facet hypertrophy causing mild bilateral neural foraminal stenosis, left greater than right. There is no central spinal stenosis. The conus terminates at the T12-L1 level and demonstrates normal signal intensity. The visualized paraspinal soft tissues are unremarkable. MR/MR lumbar spine wo con Impression: 1. Mild degenerative disc disease. Grade I spondylolisthesis of L3 on L4. 2. Severe central spinal stenosis at L3-4 and L4-5 and mild central spinal stenosis at L1-2 and L2-3. 3. Moderate left lateral disc herniation at L4-5. 4. Neural foraminal stenosis as discussed above. Electronically signed by: Alexander Granger MD 03/04/2024 07:11 AM [facility]
== END 2024-03-02 00:01 | disposition home or self-care (01) ==
LOC: HO.MRI
PROVIDERS: PCP Internal Medicine; Visit Provider Internal Medicine
DX: M54.41 Lumbago with sciatica, right side (principal)
CPT/HCPCS: 72148

== ENCOUNTER 2024-03-02 05:55 | Outpatient (REF) | payer MEDICAID, SELFPAY ==
--- NOTE | 2024-03-02 | EMG_ITS ---
FINDINGS: Right median and ulnar motor and sensory studies were performed. Right radial sensory study was performed. Right tibial and peroneal motor studies were performed. Right superficial peroneal and sural sensory studies were performed. Tibial H-reflex was obtained and paraspinal muscles were tested in cervical and lumbar areas. IMPRESSION: Mild right median neuropathy across carpal tunnel. Otherwise, no significant abnormality noted. MD OLIVIA Wynn/FRITZ / [id number]
== END 2024-03-02 05:56 | disposition home or self-care (01) ==
LOC: HO.NEURO 05:55
PROVIDERS: PCP Internal Medicine; Visit Provider Internal Medicine
DX: M54.2 Cervicalgia (principal); M54.41 Lumbago with sciatica, right side; G89.29 Other chronic pain
CPT/HCPCS: 95886; 95911

== ENCOUNTER → 2024-03-02 09:03 | Outpatient (BNV) | payer MEDICAID, SELFPAY | PROVIDERS: PCP Internal Medicine; Visit Provider Radiology Diagnostic Radiology | DX: M54.41 Lumbago with sciatica, right side (principal) | CPT/HCPCS: 72148 ==

== ENCOUNTER 2024-05-15 08:53 | Outpatient (REF) | payer MEDICAID, SELFPAY ==
--- NOTE | ~2024-05-15 | MR_ITS ---
EXAMINATION: MR CERVICAL SPINE WITHOUT CONTRAST CLINICAL INFORMATION: Chronic neck pain. COMPARISON: Correlated to CT soft tissue neck dated July 20, 2020. TECHNIQUE: MRI of the cervical spine was obtained using routine sequences without contrast. FINDINGS: Paramagnetic field distortion affecting C2-3 level and the left upper neck. Craniocervical junction is intact. There is fusion/fused C2-3. No bone marrow STIR signal abnormality. Trace of fluid in the preodontoid joint space. Multilevel marginal osteophyte formation and disc desiccation C3-4 to C6-7. Grade 1 retrolisthesis, C6-7 and to a lesser extent C5-6. Reverse curvature apex at C5-6. Cervical spinal cord signal is normal. C2-3: No compression upon neural elements. C3-4: Central disc osteophyte complex formation resulting in ventral deformity of the spinal cord. No cord signal abnormality. No neuroforamina stenosis. C4-5: Central broad-based disc osteophyte complex formation resulting in ventral deformity of the spinal cord. No cord signal abnormality. Left neuroforamina narrowing. Bilateral facet joint hypertrophy. C5-6: Right-sided disc osteophyte complex formation resulting in ventral deformity of the spinal cord without cord signal abnormality. Hypertrophy of ligamentum flavum. Facet joint hypertrophy. Right neuroforamina stenosis. C6-7: Broad-based disc osteophyte complex formation resulting in CSF effacement ventral aspect of the thecal sac. Right neuroforamina stenosis on a degenerative basis. No cord signal abnormality. The C7-T1: Broad-based disc osteophyte complex formation. No cord compression. No neuroforamina stenosis. Small left perineural cyst, T1 to. No prevertebral compartment hematoma, mass or fluid collection. Flow-void signal within the mean vessels is normal. Codominant vertebral arteries. MR/MR cervical spine wo con IMPRESSION: Multilevel spondylosis, C3-4 to C6-7 more conspicuous at C5-6 resulting in central spinal canal and right neuroforamina and stenosis. No cord edema and or myelopathy. Electronically signed by: Joseph Zavala MD 05/18/2024 07:48 AM EDT
--- OUTSIDE RECORDS SUMMARY | 2024-05-15 09:00 | XMS_ITS | Encounter Summary ---
Author Organization [employer] Address [address] [facility] 7[address] [place] [address] Care Team Providers Care Collar Shaper Operator Name Role Phone Conner Méndez MD Primary Care Provide r Encounter Details Date Type Department Care Team (Latest Contact Info) Description 08/01/2020 Abstract [facility] CONVERSIONS Dental, Provider, DDS Social History Tobacco Use Types Packs/Day Years Used Date Smoking Tobacco: Never Assessed Comments Unknown Sex and Gender Information Value Date Recorded Sex Assigned at Female 12/24/2021 10:31 AM EDT Legal Sex Female 10:31 AM EDT Gender Identity Female 12/24/2021 10:31 AM EDT Sexual Orientation Straight 12/24/2021 10 :31 AM EDT documented as of this encounter Plan of Treatment Upcoming Encounters Date Type Department Care Team (Late st Contact Info) Description 07/20/2024 9:00 AM EDT Office Visit [facility] MEDICINE [address] [place] [address] Conner Méndez MD [address] [place] [address] documented as of this encounter Visit Diagnoses Not on filedocumented in this encounter Care Teams Collar Shaper Operator Relationship Specialty Start Date End Date Conner Méndez MD [address] [place] [address] PCP - General Internal Medicine 12/08/18 documented as of this encounter
--- OUTSIDE RECORDS SUMMARY | 2024-05-15 09:00 | XMS_ITS | Encounter Summary ---
Author Organization [employer] Address [address] [facility] 7[address] [place] [address] Care Team Providers Care Safety Clothing And Equipment Developer Name Role Phone Conner Méndez MD Primary Care Provide r Reason for Referral * Consultation (Routine) - Authorized Specialty Diagnoses / Procedures Referred By Hazel t Referred To Contact Cardiology Diagnoses Chest discomfort Conner Méndez MD [address] [place] [address] Phone: tel: fax: [facility] Referral ID Status Reason Start Date Expiration Date Visits Requested Visits Authorized [id number] Authorized Specialty Services Required 05/11/2024 05/11/2025 6 6 * Consultation (Routine) - Closed Specialty Diagnoses / Procedures Referred By Hazel t Referred To Contact Otolaryngology Diagnoses Deviated nasal septum Conner Méndez MD [address] [place] [address] Phone: tel: fax: [facility] [address] [place] [address] Phone: tel: fax: Referral ID Status Reason Start Date Expiration Date V isits Requested Visits Authorized [id number] Closed Specialty Services Required 05/11/2024 05/11/2025 10 10 * Consultation (Routine) - Closed Specialty Diagnoses / Procedures Referred By Contsilvano t Referred To Contact Physical Therapy Diagnoses Low back pain radiating to both legs Conner Méndez MD [address] [place] [address] Phone: tel: fax: [facility] [address] [place], [place] Phone: tel: fax: Referral ID Status Reason Start Date Expiration Date V isits Requested Visits Authorized [id number] Closed Specialty Services Required 05/11/2024 05/11/2025 20 20 Reason for Visit * Reason Comments Back Pain Encounter Details Date Type Department Care Team ([facility] st Contact Info) Description 05/11/2024 11:15 AM EDT Office Visit [facility] MEDICINE [address] [place] [phone] Conner Méndez MD [address] [place] [id number] Low back pain radiating to both legs (Primary Dx); Chronic neck pain; Chest discomfort; Acquired hypothyroidism; Primary insomnia; Deviated nasal septum Social History Tobacco Use Types Packs/Day Years Used Date Smoking Tobacco: Never Passive Smoke Exposure: Never Smokeless Tobacco: Never Depression Answer Date Recorded Patient Health Questionnaire-9 Score 4 09/02/2023 Patient Health Questionnaire-9 Score 4 09/02/2023 Last PHQ-9: Questionnaire Data Not on file 0 09/02/2023 Housing Stability Answer Date Recorded What is your housing situation today? I have carter sing 05/11/[address] you li ve. Do you have problems with any of the following? None of the above 05/11/2024 Food Insecurity Answer Date Recorded Within the past 12 months, y ou worried that your food would run out before you got money to buy more: Never True 05/11/2024 Within the past 12 months,th e food you bought just didn't last and you didn't have enough money to get more: Never True Transportation Answer Date Recorded In the past 12 months, has l ack of transportation kept you from medical appts, meetings, work or from getting things needed for daily living? No 05/11/2024 Utilities Answer Date Recorded In the past 12 months, has t he electric, gas, oil or water company threatened to shut off services in your home? No 05/11/2024 Depression Answer Date Recorded Patient Health Questionnaire-2 Score 1 09/02/2023 Internet Access Answer Date Recorded Internet Access Q1 Yes 05/11/2024 Internet Access Q2 Not on file 05/11/2024 Comments Unknown Sex and Gender Information Value Date Recorded Sex Assigned at Female 12/24/2021 10:31 AM EDT Legal Sex Female 10:31 AM EDT Gender Identity Female 12/24/2021 10:31 AM EDT Sexual Orientation Straight 12/24/2021 10 :31 AM EDT documented as of this encounter Last Filed Vital Signs Vital Sign Reading Time Taken Comments Blood Pressure 144/85 05/11/2024 11:08 AM EDT Pulse 75 05/11/2024 11:08 AM EDT Temperature 36.1 ??C (96.9 ??F) 05/11/2024 11:08 AM E DT Respiratory Rate 20 05/11/2024 11:08 AM EDT Oxygen Saturation 96% 05/11/2024 11:08 AM EDT Inhaled Oxygen Concentration - - Weight 68.5 kg (151 lb) 05/11/2024 11:08 AM EDT Height 147.3 cm (4' 10 ) 05/11/2024 11:08 AM EDT Body Mass Index 31.56 05/11/2024 11:08 AM EDT documented in this encounter Progress Notes * Conner Guerin MD - 05/11/2024 11:15 AM EDT NELY Mcgovern is a 64 y.o. female who presents for Back Pain. Patient here for a follow up, accompanied by her daughter. She mentions her back pain is better with PT and is requesting to continue Back Pain This is a chronic problem. The current episode started more than 1 month ago. The problem has been gradually improving since onset. The pain is present in the lumbar spine. The symptoms are aggravated by twisting and bending. Pertinent negatives include no abdominal pain, chest pain, fever or headaches. She has tried analgesics and chiropractic manipulation for the symptoms. The treatment provided significant relief. Review of Systems Constitutional: Negative for fever. HENT: Negative for sore throat. Respiratory: Negative for cough and shortness of breath. Cardiovascular: Negative for chest pain. Gastrointestinal: Negative for abdominal pain. Musculoskeletal: Positive for back pain. Neurological: Negative for headaches. No Known Allergies OBJECTIVE Vitals: 05/11/24 1108 BP: (!) 144/85 BP Location: Left arm Patient Position: Sitting BP Cuff Size: Adult Pulse: 75 Resp: 20 Temp: 96.9 ??F (36.1 ??C) TempSrc: Temporal SpO2: 96% Weight: 151 lb (68.5 kg) Height: 4' 10 (1.473 m) Physical Exam Vitals reviewed. Constitutional: Appearance: Normal appearance. HENT: Head: Normocephalic and atraumatic. Right Ear: External ear normal. Left Ear: External ear normal. Nose: Septal deviation present. Mouth/Throat: Mouth: Mucous membranes are moist. Eyes: Conjunctiva/sclera: Conjunctivae normal. Cardiovascular: Rate and Rhythm: Normal rate and regular rhythm. Pulmonary: Effort: Pulmonary effort is normal. Breath sounds: Normal breath sounds. Skin: General: Skin is warm. Neurological: Mental Status: She is alert. Mental status is at baseline. Assessment/Plan Problem List Items Addressed This Visit Low back pain radiating to both legs - Primary Pt here for a follow up Patient seen [place] [facility] [place]07[place] where she presented with right sided back and leg pain, associated with numbness. Reported that pain was exacerbated by standing and was radiating down her right leg. 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 Patient was provided with pain control medication and discharged home with self-care. Last visit pt c/o persistent low back pain that radiates to the right hip and right leg, accompanied by great toe numbness Needed to rule out radiculopathy. In the past she had received PT. Previously pt was referred to [facility] for evaluation, they tried contacting pt to schedule appointmentunsuccessfully. Previously I gave her daughter their phone number to schedule appointment, it does not appear like this happened. Last visit the pt's daughter told me she was referred to a different spine doctor by the orthopaedic specialist. MRI LS spine done: 02/09/2024 showed 1. Mild degenerative disc disease. Grade I spondylolisthesis of L3 on L4. 2. Severe central spinal stenosis at L3-4 and L4-5 and mild central spinal stenosis at L1-2 and L2-3. 3. Moderate left lateral disc herniation at L4-5. 4. Neural foraminal stenosis as discussed above. Plan: Pt was referred to PT, has yet to go. She was seen 03/15/2024 at [facility] in [place] for Low back pain, they recommended evaluation at [facility] for PT and consideration of steroid injections Last visit she told me she was not interested in injections or surgical interventions She is undergoing PT with good results, would like to continue Relevant Orders Referral to Physical Therapy Chronic neck pain Pt here for a follow up Pt with previous c/o intermittent left sided neck pain. Last visit she was complaining of right sided neck pain, she now describes it as intermittent, moderate intensity, radiating to her right lateral neck. On previous exam there was no redness, No warmth, No palpable mass, Etiology ? Previous Plain films of her C-spine to r/o degenerative disc disease of cervical Spine showed: Cervical spine: Degenerative changes. Limited evaluation of the left neural foramen due to patient positioning. A previous CT scan showed: Congenital C2-C3 fusion. There is multilevel cervical spondylosis. Uncovertebral joint spurring and facet arthropathy result in moderate to severe right C3-C4 and severe right C5-C6 bony foraminal stenosis. I suspected her neck pain might be associated with her cervical spondylosis. She has been using Meloxicam 15 mg po daily EMG showed: Mild right median neuropathy across carpal tunnel. Otherwise, no significant abnormality noted. Pt was referred to PT, given that symptoms had not improved I had ordered an MRI of cervical spine,she cancelled the appointment. Today I have discussed with her and her daughter and they requested to proceed with work up. We were able to schedule it for her for this friday Chest discomfort Patient with previous c/o recurrent chest discomfort. Described as intermittent and mild and radiates to her left side of her neck . In the past she had c/o left sided chest discomfort on and off never lasting more than a few minutes at a time, with no others associates symptoms, no N/V/D, no sob. Previous EKG at the office was normal. EKG last visit was also normal and unchaged Previously I had recommended a cardiology consult for a stress test to be done, she then proceeded to travel to [facility] before despite my recommendation not to travel until cardiac work up completed. She finally saw the revenue accounting manager 05/03/2019 who recommended a stress test, an ECHO and a Holter monitor. Pt did not do any of the tests because back then she was concerned about going to the Hospital due to Covid-19. She subsequently brought me the results of a stress test and [place] both of [place] were normal Last visit I explained to her that given that she was complaining of chest pain she needed to be re-evaluated. She had an appointment with Cardiology but today she tells me she decided to re-scheduleit for April. Again I discussed with her and her daughter the importance of seeing the revenue accounting manager due to her c/o intermittent chest pain. Today she and her daughter tell me they have no recollection of any cardiology appointment. Plan: I have placed another referral for cardiology Relevant Orders Referral to Cardiology Acquired hypothyroidism Patient doing well She is now on levothyroxine 75 mcg po daily Lab Results Component Value Date TSH 1.76 02/09/2024 Normal Continue with current regimen Primary insomnia Relevant Medications traZODone (Desyrel) 100 MG tablet Deviated nasal septum Patient tells me that she is concerned about her septum being deviated and would like to discuss with ENT Referral to ENT placed Relevant Orders Referral to ENT documented in this encounter Miscellaneous Notes * Assessment & Plan Note - Conner Guerin MD - 05/11/2024 3:42 PM EDT Associated Problem(s): Deviated nasal septum Patient tells me that she is concerned about her septum being deviated and would like to discuss with ENT Referral to ENT placed * Assessment & Plan Note - Conner Guerin MD - 05/11/2024 11:27 AM EDT Associated Problem(s): Acquired hypothyroidism Patient doing well She is now on levothyroxine 75 mcg po daily Lab Results Component Value Date TSH 1.76 02/09/2024 Normal Continue with current regimen * Assessment & Plan Note - Conner Guerin MD - 05/11/2024 11:26 AM EDT Associated Problem(s): Chest discomfort Patient with previous c/o recurrent chest discomfort. Described as intermittent and mild and radiates to her left side of her neck . In the past she had c/o left sided chest discomfort on and off never lasting more than a few minutes at a time, with no others associates symptoms, no N/V/D, no sob. Previous EKG at the office was normal. EKG last visit was also normal and unchaged Previously I had recommended a cardiology consult for a stress test to be done, she then proceeded to travel to [facility] before despite my recommendation not to travel until cardiac work up completed. She finally saw the revenue accounting manager 05/03/2019 who recommended a stress test, an ECHO and a Holter monitor. Pt did not do any of the tests because back then she was concerned about going to the Hospital due to Covid-19. She subsequently brought me the results of a stress test and [place] both of which were normal Last visit I explained to her that given that she was complaining of chest pain she needed to be re-evaluated. She had an appointment with Cardiology but today she tells me she decided to re-scheduleit for April. Again I discussed with her and her daughter the importance of seeing the revenue accounting manager due to her c/o intermittent chest pain. Today she and her daughter tell me they have no recollection of any cardiology appointment. Plan: I have placed another referral for cardiology * Assessment & Plan Note - Conner Guerin MD - 05/11/2024 11:26 AM EDT Associated Problem(s): Chronic neck pain Pt here for a follow up Pt with previous c/o intermittent left sided neck pain. Last visit she was complaining of right sided neck pain, she now describes it as intermittent, moderate intensity, radiating to her right lateral neck. On previous exam there was no redness, No warmth, No palpable mass, Etiology ? Previous Plain films of her C-spine to r/o degenerative disc disease of cervical Spine showed: Cervical spine: Degenerative changes. Limited evaluation of the left neural foramen due to patient positioning. A previous CT scan showed: Congenital C2-C3 fusion. There is multilevel cervical spondylosis. Uncovertebral joint spurring and facet arthropathy result in moderate to severe right C3-C4 and severe right C5-C6 bony foraminal stenosis. I suspected her neck pain might be associated with her cervical spondylosis. She has been using Meloxicam 15 mg po daily EMG showed: Mild right median neuropathy across carpal tunnel. Otherwise, no significant abnormality noted. Pt was referred to PT, given that symptoms had not improved I had ordered an MRI of cervical spine,she cancelled the appointment. Today I have discussed with her and her daughter and they requested to proceed with work up. We were able to schedule it for her for this friday * Assessment & Plan Note - Conner Guerin MD - 05/11/2024 11:23 AM EDT Associated Problem(s): Low back pain radiating to both legs Pt here for a follow up Patient seen at [facility] 11/07/2023 where she presented with right sided back and leg pain, associated with numbness. Reported that pain was exacerbated by standing and was radiating down her right leg. 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 Patient was provided with pain control medication and discharged home with self-care. Last visit pt c/o persistent low back pain that radiates to the right hip and right leg, accompanied by great toe numbness Needed to rule out radiculopathy. In the past she had received PT. Previously pt was referred to [facility] for evaluation, they tried contacting pt to schedule appointmentunsuccessfully. Previously I gave her daughter their phone number to schedule appointment, it does not appear like this happened. Last visit the pt's daughter told me she was referred to a different spine doctor by the orthopaedic specialist. MRI LS spine done: 02/09/2024 showed 1. Mild degenerative disc disease. Grade I spondylolisthesis of L3 on L4. 2. Severe central spinal stenosis at L3-4 and L4-5 and mild central spinal stenosis at L1-2 and L2-3. 3. Moderate left lateral disc herniation at L4-5. 4. Neural foraminal stenosis as discussed above. Plan: Pt was referred to PT, has yet to go. She was seen 03/15/2024 at [facility] in [place] for Low back pain, they recommended evaluation at [facility] for PT and consideration of steroid injections Last visit she told me she was not interested in injections or surgical interventions She is undergoing PT with good results, would like to continue documented in this encounter Plan of Treatment Upcoming Encounters Date Type Department Care Team (Late st Contact Info) Description 07/20/2024 9:00 AM EDT Office Visit [facility] MEDIC[facility] [address] [place] [address] Conner Méndez MD [address] [place] [address] Pending Results Name Type Priority Associated Diagnoses Date /Time Referral to ENT Outpatient Referral Routine Deviated nasal septum 05/11/2024 Scheduled Referrals Name Type Priority Associated Diagnoses Order Schedule Referral to Physical Therapy Outpatient Referral Routine Low back pain radiating to both legs Expected: 05/11/2024 (Approximate), Expires: 05/11/2025 Referral to ENT Outpatient Referral Routine Deviated nasal septum Expected: 05/11/2024 (Approximate), Expires: 05/11/2025 Referral to Cardiology Outpatient Referral Routine Chest discomfort Expected: 05/11/2024 (Approximate), Expires: 05/11/2025 documented as of this encounter Visit Diagnoses Diagnosis Low back pain radiating to both legs- Primary Lumbago Chronic neck pain Cervicalgia Chest discomfort Other chest pain Acquired hypothyroidism Unspecified hypothyroidism Primary insomnia Persistent disorder of initiating or maintaining sleep Deviated nasal septum documented in this encounter Additional Health Concerns Assessment Noted Time PHQ-9 Depression Total Score: 4 09/02/19 24 10:34 AM EDT documented as of this encounter Care Teams Safety Clothing And Equipment Developer Relationship Specialty Start Date End Date Conner Méndez MD [address] [place] [address] PCP - General Internal Medicine 12/08/18 documented as of this encounter
--- OUTSIDE RECORDS SUMMARY | 2024-05-15 09:00 | XMS_ITS | Encounter Summary ---
Author Organization [employer] Address [address] [facility] [address] [place] [address] Care Team Providers Care Head Of Strategy Name Role Phone Conner Méndez MD Primary Care Provide r Encounter Details Date Type Department Care Team (Latest Contact Info) Description 05/11/2024 Travel Social History Tobacco Use Types Packs/Day Years Used Date Smoking Tobacco: Never Passive Smoke Exposure: Never Smokeless Tobacco: Never Depression Answer Date Recorded Patient Health Questionnaire-9 Score 4 09/02/2023 Patient Health Questionnaire-9 Score 4 09/02/2023 Last PHQ-9: Questionnaire Data Not on file 0 09/02/2023 Housing Stability Answer Date Recorded What is your housing situation today? I have carter farshad 05/11/[address] you li [...] Description 07/20/2024 9:00 AM EDT Office Visit [facility] [address] [place] [address] Conner Méndez MD [address] [place] [address] documented as of this encounter Visit Diagnoses Not on filedocumented in this encounter Additional Health Concerns Assessment Noted Time PHQ-9 Depression Total Score: 4 09/02/19 24 10:34 AM EDT documented as of this encounter Care Teams Head Of Strategy Relationship Specialty Start Date End Date Conner Méndez MD [address] [place] [address] PCP - General Internal Medicine 12/08/18 documented as of this encounter
--- OUTSIDE RECORDS SUMMARY | 2024-05-15 09:00 | XMS_ITS | Encounter Summary ---
Author Organization [employer] Address [address] [facility] 7t [place] [address] Care Team Providers Care Advertising Analyst Name Role Phone Conner Méndez MD Primary Care Provide r Encounter Details Date Type Department Care Team ([facility] st Contact Info) Description 05/07/2024 Population Health Risk Score [facility] Care [facility] ([facility]) Department [address] [phone] Provider, Population Health Generic Social History Tobacco Use Types Packs/Day Years Used Date Smoking Tobacco: Never Passive Smoke Exposure: Never Smokeless Tobacco: Never Depression Answer Date Recorded Patient Health Questionnaire-9 Score 4 09/02/2023 Patient Health Questionnaire-9 Score 4 09/02/2023 Last PHQ-9: Questionnaire Data Not on file 0 09/02/2023 Housing Stability Answer Date Recorded What is your housing situation today? I have carter yen 03/25/[address] you li ve. Do you have problems with any of the following? None of the above 03/25/2023 Food Insecurity Answer Date Recorded Within the past 12 months, y ou worried that your food would run out before you got money to buy more: Never True 12/09/2022 Within the past 12 months,th e food you bought just didn't last and you didn't have enough money to get more: Never True Transportation Answer Date Recorded In the past 12 months, has l ack of transportation kept you from medical appts, meetings, work or from getting things needed for daily living? No 12/09/2022 Utilities Answer Date Recorded In the past 12 months, has t he electric, gas, oil or water company threatened to shut off services in your home? No 12/09/2022 Depression Answer Date Recorded Patient Health Questionnaire-2 Score 1 09/02/2023 Comments Unknown Sex and Gender Information Value [...] Description 07/20/2024 9:00 AM EDT Office Visit [facility] MED[facility]INE [address] [place] [address] Conner Méndez MD [address] [place] [address] documented as of this encounter Visit Diagnoses Not on filedocumented in this encounter Additional Health Concerns Assessment Noted Time PHQ-9 Depression Total Score: 4 09/02/19 24 10:34 AM EDT documented as of this encounter Care Teams Advertising Analyst Relationship Specialty Start Date End Date Conner Méndez MD [address] [place] [address] PCP - General Internal Medicine 12/08/18 documented as of this encounter
--- OUTSIDE RECORDS SUMMARY | 2024-05-15 09:00 | XMS_ITS | Encounter Summary ---
Author Organization [employer] Address [address] [facility] 7t [place] [address] Care Team Providers Care Rehab Services Aide Name Role Phone Conner Méndez MD Primary Care Provide r Reason for Visit * Reason Comments Med Refill Encounter Details Date Type Department Care Team (Late st Contact Info) Description 06/30/2023 Refill [facility] [address] [place], [place] [phone] Conner Méndez MD [address] [place], [place] [phone] Papanicolaou smear of vagina with atypical squamous cells of undetermined significance (ASC-US) Social History Tobacco Use Types Packs/Day Years Used Date Smoking Tobacco: Never Passive Smoke Exposure: Never Smokeless Tobacco: Never Depression Answer Date Recorded Patient Health Questionnaire-9 Score 0 09/19/2022 Housing Stability Answer Date Recorded What is your housing situation today? I have carter farshad 03/25/[address] you li [...] Answer Date Recorded Patient Health Questionnaire-2 Score 0 09/19/2022 Comments Unknown Sex and Gender Information Value [...] Description 07/20/2024 9:00 AM EDT Office Visit [facility] [address] [place], [place] [phone] Conner Méndez MD [address] [place] [address] documented as of this encounter Visit Diagnoses Diagnosis Papanicolaou smear of vagina with atypical squamous cells of undetermined significance (ASC-US) documented in this encounter Additional Health Concerns Assessment Noted Time PHQ-9 Depression Total Score: 0 09/20/19 23 9:04 AM EDT documented as of this encounter Care Teams Rehab Services Aide Relationship Specialty Start Date End Date Conner Méndez MD [address] [place] [address] PCP - General Internal Medicine 12/08/18 documented as of this encounter
--- OUTSIDE RECORDS SUMMARY | 2024-05-15 09:00 | XMS_ITS | Encounter Summary ---
Author Organization [employer] Address [address] [facility] 7t [place] [address] Care Team Providers Care Boxing And Pressing Supervisor Name Role Phone Conner Méndez MD Primary Care Provide r Reason for Visit * Reason Onset Date Comments Appointment Confirmation 05/11/2024 Encounter Details Date Type Department Care Team ([facility] st Contact Info) Description 05/11/2024 Telephone [facility] MED[facility]INE [address] [place], [place] [phone] Conner Méndez MD [address] [place], [place] [phone] Appointment Confirmation Social History Tobacco Use Types Packs/Day Years Used Date Smoking Tobacco: Never Passive Smoke Exposure: Never Smokeless Tobacco: Never Depression Answer Date Recorded Patient Health Questionnaire-9 Score 4 09/02/2023 Patient Health Questionnaire-9 Score 4 09/02/2023 Last PHQ-9: Questionnaire Data Not on file 0 09/02/2023 Housing Stability Answer Date Recorded What is your housing situation today? I have carter yen 05/11/[address] you li [...] AM EDT documented as of this encounter Miscellaneous Notes * Telephone Encounter - Sonia Mullins [place] - 05/11/2024 12:13 PM EDT Pt's daughter was able to make appt with [facility] center for 05/15/2024 @9AM. LB documented in this encounter Plan of Treatment Upcoming Encounters Date Type Department Care Team (Late st Contact Info) Description 07/20/2024 9:00 AM EDT Office Visit [facility] [address] [place] [address] Conner Méndez MD [address] [place] [address] documented as of this encounter Visit Diagnoses Not on filedocumented in this encounter Additional Health Concerns Assessment Noted Time PHQ-9 Depression Total Score: 4 09/02/19 24 10:34 AM EDT documented as of this encounter Care Teams Boxing And Pressing Supervisor Relationship Specialty Start Date End Date Conner Méndez MD [address] [place] [address] PCP - General Internal Medicine 12/08/18 documented as of this encounter
--- OUTSIDE RECORDS SUMMARY | 2024-05-15 09:00 | XMS_ITS | Encounter Summary ---
Author Organization [employer] Address [address] [facility] 7t [place] [address] Care Team Providers Care Solid Waste Technician Name Role Phone Conner Méndez MD Primary Care Provide r Encounter Details Date Type Department Care Team (Latest Contact Info) Description 10/27/2018 Abstract [facility] CONVERSIONS Dental, Provider, DDS Social History Tobacco [...] Description 07/20/2024 9:00 AM EDT Office Visit [facility] MEDICINE [address] [place] [address] Conner Méndez MD [address] [place] [address] documented as of this encounter Visit Diagnoses Not on filedocumented in this encounter Care Teams Solid Waste Technician Relationship Specialty Start Date End Date Conner Méndez MD [address] [place] [address] PCP - General Internal Medicine 12/08/18 documented as of this encounter
--- OUTSIDE RECORDS SUMMARY | 2024-05-15 09:00 | XMS_ITS | Encounter Summary ---
Author Organization [employer] Address [address] [facility] 7t [place] [address] Care Team Providers Care Tape Deck Installer Name Role Phone Conner Méndez MD Primary Care Provide r Reason for Visit * Reason Comments Med Refill Encounter Details Date Type Department Care Team (Late st Contact Info) Description 06/30/2023 Refill [facility] [address] [place], [place] [phone] Bianka Salazar DO [address] [place], [place] [phone] Chronic neck pain Social History Tobacco Use Types Packs/Day Years [...] 9:00 AM EDT Office Visit [facility] [address] [place] [address] Conner Méndez MD [address] [place] [address] documented as of this encounter Visit Diagnoses Diagnosis Chronic neck pain Cervicalgia documented in this encounter Additional Health Concerns Assessment Noted Time PHQ-9 Depression Total Score: 0 09/20/19 23 9:04 AM EDT documented as of this encounter Care Teams Tape Deck Installer Relationship Specialty Start Date End Date Conner Méndez MD [address] [facility] [place] [address] PCP - General Internal Medicine 12/08/18 documented as of this encounter
--- OUTSIDE RECORDS SUMMARY | 2024-05-15 09:00 | XMS_ITS | Data Portability ---
Author Organization [place] [facility] [place] Address [address] [place] [phone] Assessment No assessment recorded. Plan of Treatment Reminders Order Date Submit Date Provider Last Modified By Organization Details Last Modified Time Details Appointments None recorded. Lab None recorded. Referral None recorded. Procedures None recorded. Surgeries None recorded. Imaging None recorded. Medication Orders clotrimaz ole-betam ethasone 1 %-0.05 % topical cream 024 [facility] #[id number], [address] [place], [address], 12:26:08 Patient TargetsNo targets recorded. Patient InstructionsNo instructions recorded. Reason for Referral None Reported. Results Created Date Observation Date Name Description Value Unit Range Abnormal Flag Note LastModifiedBy Organization Detail LastModifiedTime 09/16/19 24 audio gram No observ ation record ed. [email or web address] Not Available 08/25 14:41:16 Result Notes None recorded. Problems Name Problem SNOMED Code Status Onset Date Resolution Date Notes Provider Name and Address Organization Details Recorded Time Sensorineural hearing loss of bilateral ears 627312156 Active 2023 Mely dennison [place] - [facility] [place] 4 11:55:56 Chronic eczema of external auditory canal 353728331 Active 2023 ANIRUDH Mcdonough MD [address] [place] [address], [place], [phone] [place] [address] - [facility] [place] 4 12:07:53 Candidal otitis externa 33609333 Active 2023 ANIRUDH Mcdonough MD [address] [place] [address], [place], [phone], [facility] [place] 4 12:09:02 Chronic mycotic otitis externa 554632369 Active 2023 ANIRUDH Mcdonough MD [address] [facility] [address], [place], [phone], [facility] - [facility] [place] 4 12:09:02 Dermal mycosis 32717929 Active 2023 ANIRUDH Mcdonough MD [address] [facility] [address], [place], [phone], [facility] - [facility] [place] 4 12:09:02 Problem Notes None recorded. Procedures Surgical History Date Name Laterality Status Provider Name and Address Organization Details Recorded Time 09/16/19 24 Tympanometry (36731) completed Mely Holbrook [place] - [facility] [place] 09/16/2023 11:55:42 09/16/19 24 [employer] (81827) completed Mely Holbrook [place] [facility] [place] 09/16/2023 11:55:48 Imaging Results Imaging Date Name Status LastModified by Organiz ation Details LastModified Time 09/16/2023 audiogram completed [email or web address] Information n ot available 09/16/2023 14:41:16 Procedure Notes None recorded. Medical Equipment None Reported. Medications Name Sig Start Date Stop Date Status Note LastModified by Organization Details LastModified Time trazodone 50 mg tablet TAKE 1 TABLET BY MOUTH AT BEDTIME active Not Available Not Available No t Available tizanidine 4 mg tablet TAKE 1 TABLET BY MOUTH 3 TIMES A DAY NEEDED FOR SPASMS active Not Available Not Available N ot Available hydrocodone 5 mg-acetamino phen 325 mg tablet 1 TAB ORALLY EVERY 8 HOURS NEEDED FOR PAIN, SEVERE FOR 3 DAYS PARTIAL FILL UPON PATIENT REQUEST. active Not Available Not Available No t Available meloxicam 15 mg tablet TAKE 1 TABLET (15 MG) BY MOUTH DAILY NEEDED FOR MODERATE PAIN active Not Available Not Available No t Available levothyroxin e 75 mcg tablet TAKE 1 TABLET (75 MCG) BY MOUTH BEFORE BREAKFAST active Not Available Not Available No t Available ketorolac 0.5 % eye drops INSTILL 1 DROP INTO LEFT EYE 3 TIMES A DAY active Not Available Not Available Not Available levothyroxin e 88 mcg tablet TAKE 1 TABLET BY MOUTH EVERY DAY BEFORE BREAKFAST active Not Available Not Available No t Available propranolol 10 mg tablet TAKE 1/2 TABLET BY MOUTH TWICE A DAY BY MOUTH active Not Available Not Available No t Available trazodone 100 mg tablet TAKE 1 TABLET BY MOUTH AT BEDTIME active Not Available Not Available No t Available ropinirole 0.25 mg tablet TAKE 1 TABLET BY MOUTH EVERYDAY AT BEDTIME active Not Available Not Available No t Available clotrimazole -betamethaso ne 1 %-0.05 % topical cream APPLY TO THE SKIN OF THE AFFECTED EXTERNAL EAR CANAL WITH FINGERTIP 3 TIMES PER DAY FOR 2 WEEKS active Not Available Not Available No t Available lidocaine 5 % topical patch PLEASE SEE ATTACHED FOR DETAILED DIRECTIONS active Not Available Not Available N ot Available doxycycline hyclate 100 mg tablet TAKE 1 TABLET BY MOUTH TWICE A DAY FOR 10 DAYS active Not Available Not Available No t Available naproxen 500 mg tablet TAKE 1 TABLET BY MOUTH TWICE A DAY NEEDED PAIN FOR 10 DAYS .TAKE WITH FOOD active Not Available Not Available No t Available Vitamin D3 25 mcg (1,000 unit) tablet TAKE 1 TABLET BY MOUTH EVERY DAY IN THE MORNING active Not Available Not Available No t Available diclofenac 1 % topical gel DIRECTED APPLY 3-4 GRAMS TO AFFECTED AREA THREE TIMES A DAY active Not Available Not Available Not Available Daily-[place] (with folic acid) 400 mcg tablet TAKE 1 TABLET BY MOUTH EVERY DAY IN THE MORNING active Not Available Not Available No t Available Vitals Date Recorded Body weight Body mass index (BMI) Body height Provider Name and Address Organization Details Last Updated DateTime 09/16/2023 86070.71 g 25.3 kg/m2 160.02 cm Jennifer Mora [place] - [facility] [place] 09/16/2023 12:03:28 Social History None recorded. Functional Status None recorded. Mental Status None recorded. Family History Nothing Reported. Medical History No medical history recorded. Past Encounters Encounter ID Performer Location Encounter Start Date Encounter Closed Date Diagnosis/Indication Diagnosis SNOMED-CT Code Diagnosis ICD10 Code Diagnosis Note [id number] ANIRUDH BRUCE MD [facility] [address] [phone] 09/16/2023 11:00:56 09/16/2023 12:28:03 Sensorineural hearing loss of bilateral ears 273865911 H90.3 Audiologic al evaluation results:Ri ght ear:{{Norm al Mild Mo derate Mod erately-se jarett Sever e Profound Essential ly mild#}} {{with sen sorineural hearing loss with* cond uctive hearing loss with mixed hearing loss with}} {{excellen t good grace r poor no measurable *}} word recognitio n.Left ear:{{Norm al Mild Mo derate Mod erately-se jarett Sever e Profound Essential ly mild#}} {{with sen sorineural hearing loss with* cond uctive hearing loss with mixed hearing loss with}} {{excellen t good grace r poor no measurable *}} word recognitio n.WRS and SRT could not be measured due to language barriers.T ympanometr y:Right Ear:{{Type A* Type As Type Ad Type C Type C, shallow & rounded Ty pe B Type B with large volume Cou ld not maintain a hermetic seal}}Left Ear:{{Type A* Type As Type Ad Type C Type C, shallow & rounded Ty pe B Type B with large volume Cou ld not maintain a hermetic seal}} hearing aids are not yet necessary. Recommend audiogram in 2 years. Chronic ec zema of external auditory canal 071980031 H60.8X9 I recommend she moisturize her EAC skin. Can use lotrisone when itchy. Chronic my cotic otitis externa 829822734 H60.399 Dermal mycosis 75323700 B36.9 Candidal o titis externa 09825384 B37.84 Health Concerns Section Related Observation LastModified by Organization Detai ls LastModified Time None Recorded Concern Status LastModified by Organization Details LastModified Time None Recorded Advance Directives Directive None Recorded Payers Encounter Date Sequence Insurance Name Policy Number Policy Velázquez Covered Member ID Velázquez Member ID Guarantor Name 09/16/2023 1 [place] - [facility] (MEDICAID) Rosemary Mcgovern [id number] Rosemary Mcgovern Notes Date Note Type Note Provider Name and Address Organization Details Recorded Time 09/16/2023 text/html She presents with gradual hearing loss over time. She is also reports dry, scaly EAC skin. She has bilateral tinnitus. ANIRUDH BRUCE MD [address] [place] [address], [phone], [facility] - [facility] [place] 09/16/2023 12:26:07
--- OUTSIDE RECORDS SUMMARY | 2024-05-15 09:00 | XMS_ITS | Encounter Summary ---
Author Organization [employer] Address [address] [facility] 7t [place] [address] Care Team Providers Care Gas Station Clerk Name Role Phone Conner Méndez MD Primary Care Provide r Encounter Details Date Type Department Care Team (Latest Contact Info) Description 01/10/2022 Abstract [facility] CONVERSIONS Dental, Provider, DDS Social History Tobacco [...] Description 07/20/2024 9:00 AM EDT Office Visit [facility] MEDICINE [address] [place] [address] Conner Méndez MD [address] [place] [address] documented as of this encounter Visit Diagnoses Not on filedocumented in this encounter Care Teams Gas Station Clerk Relationship Specialty Start Date End Date Conner Méndez MD [address] [place] [address] PCP - General Internal Medicine 12/08/18 documented as of this encounter
--- OUTSIDE RECORDS SUMMARY | 2024-05-15 09:00 | XMS_ITS | Encounter Summary ---
Author Organization [employer] Address [address] [facility] 7t [place] [address] Care Team Providers Care Drop Hammer Mechanic Name Role Phone Conner Méndez MD Primary Care Provide r Reason for Visit * Reason Comments Med Change Request Encounter Details Date Type Department Care Team (Late Contact Info) Description 09/19/2022 Refill [facility] [address] [place] [phone] Conner Méndez MD [address] [place] [phone] Papanicolaou smear of vagina with atypical squamous cells of undetermined significance (ASC-US) Social History Tobacco Use Types Packs/Day Years Used Date Smoking Tobacco: Never Smokeless Tobacco: Never Depression Answer Date Recorded Patient Health Questionnaire-9 Score 0 09/19/2022 Depression Answer Date Recorded Patient Health Questionnaire-2 [...] Description 07/20/2024 9:00 AM EDT Office Visit [facility] [address] [place] [phone] Conner Méndez MD [address] [place], [place] [phone] documented as of this encounter Visit Diagnoses Diagnosis Papanicolaou smear of vagina with atypical squamous cells of undetermined significance (ASC-US) documented in this encounter Additional Health Concerns Assessment Noted Time PHQ-9 Depression Total Score: 0 09/20/19 23 9:04 AM EDT documented as of this encounter Care Teams Drop Hammer Mechanic Relationship Specialty Start Date End Date Conner Méndez MD [address] [place] [address] PCP - General Internal Medicine 12/08/18 documented as of this encounter
--- OUTSIDE RECORDS SUMMARY | 2024-05-15 09:00 | XMS_ITS | Referral Summary ---
Author Organization [facility] Address [address] [place] [address] Care Team Providers Care Equipment Operating Engineer Name Role Phone Conner Smith Primary Care Provider + Allergies No known active allergies Medications multivitamin (THERAGRAN) tablet Take 1 tablet by mouth. 11 7 Active cholecalciferol (VITAMIN D3) 1,000 unit tablet Take 1,000 Units by mouth. 11 7 Active MULTIVITAMIN tablet Take 1 tablet by mouth. 11 7 Active aspirin 325 mg tablet Take 325 mg by mouth as needed for mild pain (pain score 1-3). Active CALCIUM CARBONATE/VITAM IN D3 (CALCIUM 500 + D ORAL) Take 1 tablet by mouth daily. Active omeprazole (PriLOSEC) 20 mg capsule TAKE 1 CAPSULE EVERY DAY 30-60 MINUTES BEFORE A MEAL 2 8 Active estradiol (ESTRACE) 0.01 % (0.1 mg/gram) vaginal cream Apply nightly to vagina for 1 week, then Friday/Friday / Friday 42.5 g 11 8 Active MAPAP, ACETAMINOPHEN, 325 mg tablet TAKE 2 TABLETS EVERY 6 HOURS NEEDED FOR PAIN FOR UP TO SEVEN DAYS 1 8 Active OYSTER SHELL CALCIUM 500 500 mg calcium (1,250 mg) tablet Take 1 tablet by mouth daily. 6 8 Active meloxicam (MOBIC) 7.5 mg tablet Take 7.5 mg by mouth daily as needed. for pain 5 9 Active ibuprofen (MOTRIN) 600 mg tablet Take 600 mg by mouth 3 times a day with meals. 0 8 Active lidocaine (LIDODERM) 5% patch apply 1 patch to skin leave on for 12 hours and off for 12 hours as directed NEEDED FOR PAIN 0 9 Active ARTHRITIS PAIN RELIEF, ACETAM, 650 mg 8 hr tablet TAKE 1 TABLET BY MOUTH EVERY 6 HOURS NEEDED. SWALLOW WHOLE WITH WATER. DO NOT BREAK, CRUSH, DISSOLVE OR CHEW 5 9 Active polyethylene glycol (COLYTE) solutionIndicat ions:Screen for colon cancer Take according to instructions provided by physician. 4000 mL 9 Active rOPINIRole (REQUIP) 0.25 mg tablet TAKE 1 TABLET BY MOUTH 1 TO 3 HOURS BEFORE BEDTIME 1 Active tiZANidine (ZANAFLEX) 2 mg tablet TAKE 1 TABLET BY MOUTH EVERY TWELVE HOURS NEEDED. DO NOT EXCEED 3 DOSES IN 24 HOURS 1 Active levothyroxine (SYNTHROID, LEVOTHROID) 75 mcg tablet Take 75 mcg by mouth daily. 1 Active neomycin-polymy donald B-hydrocortison e (CORTISPORIN) 3.5-10,000-1 mg/mL-unit/mL-% otic suspension Place 3 drops into each ear 3 times a day. 50 mL 1 1 Active Additional Information Patient not taking.Reported on 09/26/2021 traZODone (DESYREL) 50 mg tablet Take 50 mg by mouth nightly. 2 Active propranoloL (INDERAL) 10 mg tablet Take 5 mg by mouth 2 times a day. 2 Active Active Problems Problem Noted Date Diagnosed Date Combined forms of age-related cataract of both e yes 09/15/2019 Dry eye syndrome of both eyes 06/08/2018 Meibomian gland dysfunction (MGD) of both eyes 0 06/08/2018 Refractive error 06/08/2018 Abnormal Pap smear of cervix 02/06/2017 Social History Tobacco Use Types Packs/Day Years Used Date Smoking Tobacco: Never Smokeless Tobacco: Never Alcohol Use Standard Drinks/Week Comments No 0 (1 standard drink = 0.6 oz pur e alcohol) Comments No Sex and Gender Information Value Date Recorded Sex Assigned at Not on file Legal Sex Female 9:28 AM EDT Gender Identity Female Sexual Orientation Not on file Last Filed Vital Signs Vital Sign Reading Time Taken Comments Blood Pressure 148/86 01/04/2021 3:45 PM EST Pulse 97 01/04/2021 3:45 PM EST Temperature 36.3 ??C (97.3 ??F) 06/27/2020 3:00 PM ED T Respiratory Rate 18 01/04/2021 3:45 PM EST Oxygen Saturation 98% 06/27/2020 3:00 PM EDT Inhaled Oxygen Concentration - - Weight 62 kg (136 lb 11 oz) 06/27/2020 2:00 PM E DT Height 149.9 cm (4' 11 ) 06/27/2020 2:00 PM EDT Body Mass Index 27.61 06/27/2020 2:00 PM EDT Plan of Treatment Not on file Procedures * Due to [place] [employer] law, this organization might not be sharing negative HIV tests. Procedure Name Priority Date/Time Associated Diagnosis Comments COLONOSCOPY 06/27/2020 PAP Routine 03/23/2019 2:47 PM EST Atypical squamous cells of undetermined significance on cytologic smear of cervix (ASC-US) from Last 3 Months or Most Recently Relevant to Health Maintenance Results * Due to [place] [employer] law, this organization might not be sharing negative HIV tests. * COLONOSCOPY (06/27/2020) Narrative Procedure Note Charli Jaramillo MD - 06/27/2020 2:09 PM EDT [facility] Patient Name: Rosemary Mcgovern Procedure Date: 06/27/2020 2:09 PM Date of : 1960 Age: 60 Room: [facility] 01 Gender: Female Note Status: Finalized Attending MD: Charli Jaramillo MD Procedure: Colonoscopy Indications: Screening for colorectal malignant neoplasm Providers: Charli Jaramillo MD Referring MD: Conner Smith MD (Referring MD) Requesting Provider: Medicines: Monitored Anesthesia Care Complications: No immediate complications. Procedure: After I obtained informed consent, the scope was passed under direct vision. Throughout the procedure, the patient's blood pressure, pulse, and oxygen saturations were monitored continuously. The colonoscope was introduced through the anus and advanced to theterminal ileum. The colonoscopy was performed withoutdifficulty. The patient tolerated the procedure well. Findings: The entire examined colon appeared normal. Impression: - The entire examined colon is normal. - No specimens collected. Recommendation: - Repeat colonoscopy in 10 years for screeningpurposes. - Return to primary care physician PRN. Charli Jaramillo MD 06/27/2020 2:52:50 PM This report has been signed electronically. Number of Addenda: 0 Note Initiated On: 06/27/2020 2:09 PM Estimated Blood Loss: Estimated blood loss: none. us Charli Jaramillo MD PROVATION PROCEDURES Final Re sult from Last 3 Months or Most Recently Relevant to Health Maintenance Insurance [facility] [place] [id number] Care Teams Equipment Operating Engineer Relationship Specialty Start Date End Date Conner Smith [address] [place] [id number] PCP - General Internal Medicine 09/15/19
--- OUTSIDE RECORDS SUMMARY | 2024-05-15 09:01 | XMS_ITS | Encounter Summary ---
Author Organization [employer] Address [address] [facility] [address] [place] [address] Care Team Providers Care Onion Topper Name Role Phone Conner Méndez MD Primary Care Provide r Reason for Visit * Reason Comments Med Refill Encounter Details Date Type Department Care Team ([facility] st Contact Info) Description 10/03/2023 Refill [facility] [address] [place], [place] [phone] Conner Méndez MD [address] [place], [place] [phone] Primary insomnia Social History Tobacco Use Types Packs/Day Years [...] 9:00 AM EDT Office Visit [facility] [address] [place] [address] Conner Méndez MD [address] [place] [address] documented as of this encounter Visit Diagnoses Diagnosis Primary insomnia Persistent disorder of initiating or maintaining sleep documented in this encounter Additional Health Concerns Assessment Noted Time PHQ-9 Depression Total Score: 4 09/02/19 24 10:34 AM EDT documented as of this encounter Care Teams Onion Topper Relationship Specialty Start Date End Date Conner Méndez MD [address] [place] [address] PCP - General Internal Medicine 12/08/18 documented as of this encounter
--- OUTSIDE RECORDS SUMMARY | 2024-05-15 09:01 | XMS_ITS | Encounter Summary ---
Author Organization [employer] Address [address] [facility] [address] [place] [address] Care Team Providers Care Retail Team Leader Name Role Phone Conner Méndez MD Primary Care Provide r Reason for Visit * Reason Comments Med Refill Encounter Details Date Type Department Care Team (Late st Contact Info) Description 04/26/[address] [facility]INE [address] [place], [place] [phone] Conner Méndez MD [address] [place], [place] [phone] Anxiety; Primary hypertension Social History Tobacco Use Types Packs/Day Years [...] 9:00 AM EDT Office Visit [facility] [address] [place] [address] Conner Méndez MD [address] [place] [address] documented as of this encounter Visit Diagnoses Diagnosis Anxiety Anxiety state, unspecified Primary hypertension Unspecified essential hypertension documented in this encounter Additional Health Concerns Assessment Noted Time PHQ-9 Depression Total Score: 4 09/02/19 24 10:34 AM EDT documented as of this encounter Care Teams Retail Team Leader Relationship Specialty Start Date End Date Conner Méndez MD [address] [place] [address] PCP - General Internal Medicine 12/08/18 documented as of this encounter
--- OUTSIDE RECORDS SUMMARY | 2024-05-15 09:01 | XMS_ITS | Encounter Summary ---
Author Organization [employer] Address [address] [facility] [address] [place] [address] Care Team Providers Care Electronic Publications Specialist Name Role Phone Conner Méndez MD Primary Care Provide r Reason for Visit * Reason Onset Date Comments Chart Prep 05/05/2024 Encounter Details Date Type Department Care Team ([facility] st Contact Info) Description 05/05/2024 Telephone [facility] [address] [place], [place] [phone] Conner Méndez MD [address] [place], [place] [phone] Chart Prep Social History Tobacco Use Types Packs/Day Years [...] Telephone Encounter - Sonia Mullins [place] - 05/05/2024 10:09 AM EDT Chart Prep Labs: done Images: done Vaccines due: Covid Due, Hep A Due, Hep B Due, PCV20 Due, RSV in Pharmacy Due, and Shingles in pharmacy Due Referrals: Radiology Requested notes by Fax. Waiting for notes. Screenings: HIV screening Overdue care gaps: [facility] Chart prep for upcoming appt with Dr.Esparza gaspar. LB documented in this encounter Plan of Treatment Upcoming Encounters Date Type Department Care Team (Late st Contact Info) Description 07/20/2024 9:00 AM EDT Office Visit [facility] [address] [place] [address] Conner Méndez MD [address] [place] [address] documented as of this encounter Visit Diagnoses Not on filedocumented in this encounter Additional Health Concerns Assessment Noted Time PHQ-9 Depression Total Score: 4 09/02/19 24 10:34 AM EDT documented as of this encounter Care Teams Electronic Publications Specialist Relationship Specialty Start Date End Date Conner Méndez MD [address] [place] [id number] PCP - General Internal Medicine 12/08/18 documented as of this encounter
--- OUTSIDE RECORDS SUMMARY | 2024-05-15 09:01 | XMS_ITS | Encounter Summary ---
Author Organization [employer] Address [address] [facility] [address] [place] [address] Care Team Providers Care Building Coordinator Name Role Phone Conner Méndez MD Primary Care Provide r Reason for Visit * Reason Comments Med Refill Encounter Details Date Type Department Care Team (Late st Contact Info) Description 05/08/2024 Refill [facility] [address] [place], [place] [phone] Bianka Salazar DO [address] [place], [place] [phone] Chronic neck pain Social History Tobacco Use [...] 07/20/2024 9:00 AM EDT Office Visit [facility] [address] [place] [address] Conner Méndez MD [address] [place] [address] documented as of this encounter Visit Diagnoses Diagnosis Chronic neck pain Cervicalgia documented in this encounter Additional Health Concerns Assessment Noted Time PHQ-9 Depression Total Score: 4 09/02/19 24 10:34 AM EDT documented as of this encounter Care Teams Building Coordinator Relationship Specialty Start Date End Date Conner Méndez MD [address] [place] [id number] PCP - General Internal Medicine 12/08/18 documented as of this encounter
--- OUTSIDE RECORDS SUMMARY | 2024-05-15 09:01 | XMS_ITS | Clinical Summary ---
Author Organization [employer] Address [address] [place] [address] Care Team Providers Care Record Changer Name Role Phone Conner Méndez MD Primary Care Provide r Allergies No known active allergies Medications acetaminophen (Tylenol 8 Hour) 650 MG ER tablet TAKE 1 TABLET BY MOUTH BY MOUTH EVERY 6 HOURS NEEDED. SWALLOW WHOLE WITH WATER AND DO NOT BREAK, CRUSH, DISSOLVE OR CHEW 07/20/19 22 Active estradiol (Estrace) 0.1 MG/GM vaginal cream INSERT 1 GRAM VAGINALLY EVERY EVENING FOR 2 WKS THEN 1 GRAM VAGINALLY TWICE WEEKLY AFTERWARDS 01/30/20 22 Active omeprazole OTC (PriLOSEC OTC) 20 MG EC tabletIndications :Acquired hypothyroidism Take 1 tablet (20 mg) by mouth before breakfast. 90 tablet 1 02/26/19 23 Active Myrbetriq 25 MG 24 hr tablet Take 25 mg by mouth in the morning. 03/26/19 23 Active calcium carbonate (Os-Nehemias) 1250 (500 Ca) MG tabletIndications :Papanicolaou smear of vagina with atypical squamous cells of undetermined significance (ASC-US) Take 1 tab by mouth every day 90 tablet 3 01/15/20 23 Active [employer] Lubricant Eye Drops 0.5 % ophthalmic solutionIndicatio ns:Dry eyes USE 3 TIMES A DAY TO AFFECTED EYE(S) 30 mL 11 03/25/19 24 Active levothyroxine (Synthroid, Levoxyl) 75 MCG tabletIndications :Acquired hypothyroidism TAKE 1 TABLET BY MOUTH BEFORE BREAKFAST 90 tablet 1 02/03/20 24 Active Multiple Vitamin (Daily-Brenton Multivitamin) tabletIndications :Chronic neck pain Take 1 tablet by mouth in the morning. 90 tablet 1 03/16/19 25 Active cholecalciferol (D3-1000) 25 MCG (1000 UT) capsuleIndication s:Chronic neck pain Take 1 capsule (25 mcg) by mouth in the morning. 90 capsule 1 03/16/19 25 Active rOPINIRole (Requip) 0.25 MG tabletIndications :Primary insomnia TAKE 1 TABLET BY MOUTH EVERYDAY AT BEDTIME 90 tablet 04/06/19 25 Active propranolol (Inderal) 10 MG tabletIndications :Anxiety,Primary hypertension TAKE 1/2 TABLET BY MOUTH TWICE A DAY 90 tablet 1 04/28/19 25 Active meloxicam (Mobic) 15 MG tabletIndications :Chronic neck pain TAKE 1 TABLET (15 MG) BY MOUTH DAILY NEEDED FOR MODERATE PAIN 90 tablet 05/12/19 25 Active traZODone (Desyrel) 100 MG tabletIndications :Primary insomnia Take 1 tablet (100 mg) by mouth at bedtime. 30 tablet 3 05/12/19 25 Active meloxicam (Mobic) 15 MG tabletIndications :Chronic neck pain TAKE 1 TABLET (15 MG) BY MOUTH DAILY NEEDED FOR MODERATE PAIN 90 tablet 05/23/19 24 2024 Discontinued propranolol (Inderal) 10 MG tabletIndications :Anxiety,Primary hypertension TAKE 1/2 TABLET TWICE A DAY BY MOUTH 90 tablet 1 09/30/19 24 2024 Discontinued traZODone (Desyrel) 100 MG tabletIndications :Primary insomnia TAKE 1 TABLET BY MOUTH AT BEDTIME 30 tablet 3 01/28/20 24 2024 Discontinued Active Problems Problem Noted Date Diagnosed Date Deviated nasal septum 05/11/2024 Assessment & Plan (05/11/2024 3:42 PM EDT): Patient tells me that she is concerned about her septum being deviated and would like to discuss with ENT Referral to ENT placed Decreased hearing of both ears 03/25/2023 Assessment & Plan (03/25/2023 11:20 AM EST): Will refer to ENT Bilateral knee pain 02/04/2023 Assessment & Plan (02/05/2024 1:17 PM EST): Pt with chronic bilateral knee pain, has done well in the past with knee injections, Was seen at [facility], they recommended surgical intervention per her report but if not to try PT. Previous visit she told me she wanted to be referred to a local junk removal specialist She was last seen at [facility] they recommended steroid injections or consideration of surgical intervention. She was seen last 09/2023 and received a steroid injection. Assessment & Plan (09/02/2023 10:54 AM EDT): Pt with chronic bilateral knee pain, has done well in the past with knee injections, Was seen at [facility], they recommended surgical intervention per her report but if not to try PT. Previous visit she told me she wanted to be referred to a local junk removal specialist She was last seen at [facility] they recommended steroid injections or consideration of surgical intervention. Pt wanted to go to PT Today she tells me she is ready to go back Assessment & Plan (02/04/2023 1:43 PM EST): Pt with chronic bilateral knee pain, has done well in the past with knee injections, Was seen at [facility], they recommended surgical intervention per her report but if not to try PT. Previous visit she told me she wanted to be referred to a local junk removal specialist She was last seen at [facility] they recommended steroid injections or consideration of surgical intervention. Pt wanted to go to PT Pt wants to wait until after her cataract surgery Preoperative examination 01/14/2023 Assessment & Plan (01/14/2023 1:45 PM EST): Patient is here for a preoperative exam Patient is scheduled for:Cataract Surgery Right Eye February 06, 2023 And Left Eye 03/01/2023 [facility], [address] [place] [address] [phone] ([place]) Date of procedure: February 06, 2023 type of anesthesia: MAC anesthesia Labs: Not required EKG: Not required After careful review of patient's most recent laboratory tests: And today's Physical examination I do not see any contraindication for patient to undergo this: low Risk surgical intervention. Patient has been advised to follow up after the procedure has been completed Bilateral hip pain 12/24/2022 Assessment & Plan (02/04/2023 1:42 PM EST): Pt with previous c/o bilateral hip pain for > 3 months in the absence of any injury. Seen in the ER and diagnosed with sciatica. X-ray of lumbar spine and left hip were done back then. x-ray of her right hip 12/2022 showed: No fracture. Alignment is anatomic. Hip joint space is maintained. Soft tissues are unremarkable. There is widening of the pubic symphysis. Today not complaining Assessment & Plan (12/24/2022 11:07 AM EDT): Pt with c/o bilateral hip pain for > 3 months in the absence of any injury. Seen in the ER last month and diagnosed with sciatica. X-ray of lumbar spine and left hip were done back then.Today will proceed with an x-ray of her right hip Low back pain radiating to both legs 10/15/2022 Assessment & Plan (05/11/2024 11:31 AM EDT): Pt here for a follow up Patient seen at [facility] 11/07/2023 where she presented with right sided back and leg pain, associated with numbness. Reported that pain was exacerbated by standing and was radiating down her right leg. 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 Patient was provided with pain control medication and discharged home with self- care. Last visit pt c/o persistent low back pain that radiates to the right hip and right leg, accompanied by great toe numbness Needed to rule out radiculopathy. In the past she had received PT. Previously pt was referred to [facility] for evaluation, they tried contacting pt to schedule appointment unsuccessfully. Previously I gave her daughter their phone [...] to go. She was seen 03/15/2024 at [facility] in [place] for Low back pain, they recommended evaluation at [facility] for PT and consideration of steroid injections Last visit she told me she was not interested in injections or surgical interventions She is undergoing PT with good results, would like to continue Assessment & Plan (03/16/2024 1:14 PM EST): Telehealth Patient seen at [facility] 11/07/2023 where she presented with right sided back and leg pain, associated with numbness. Reported that pain was exacerbated by standing and was radiating down her right leg. 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 Patient was provided with pain control medication and discharged home with self- care. Last visit pt c/o persistent low back pain that radiates to the right hip and right leg, accompanied by great toe numbness Needed to rule out radiculopathy. In the past she had received PT. Previously pt was referred to [facility] for evaluation, they tried contacting pt to schedule appointment unsuccessfully. Previously I gave her daughter their phone [...] referred to PT, has yet to go. Today she tells me she is not interested in injections or surgical interventions at the moment. She will call to schedule her PT evaluation Assessment & Plan (02/05/2024 3:47 PM EST): Patient here after recently seen at [facility] 11/07/2023 where she presented with right sided back and leg pain, associated with numbness. Reported that pain was exacerbated by standing and was radiating down her right leg. 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 Patient was provided with pain control medication and discharged home with self- care. Today pt c/o persistent low back pain that radiates to the right hip and right leg, accompanied by great toe numbness Need to rule out radiculopathy. In the past she has received PT. Plan: MRI of LS spine Previously pt was referred to [facility] for evaluation, they tried contacting pt to schedule appointment unsuccessfully. Previously I gave her daughter their phone number to schedule appointment, it does not appear like this happened. Today the daughter tells me she was referred to a different spine doctor by the orthopaedic specialist. Assessment & Plan (02/04/2023 1:44 PM EST): Patient here after recently seen at [facility] where she presented with left sided back and leg pain since the day prior. Reported that pain was exacerbated by standing and was radiating down her left leg. Xray showed no acute fracture or dislocation however mild degeneration of the bilateral femoral acetabular joint and enthesopathy along the bilateral greater trochanters. Patient was provided with pain control medication and discharged home with self-care. Today pt c/o persistent low back pain that radiates to the left hip and left leg. Need to rule out radiculopathy. Undergoing PT has 4 sessions left. Pt requesting an MRI. No red flags on Neuro exam Last visit pt was referred to [facility] for evaluation, they tried contacting pt to schedule appointment unsuccessfully. Today her daughter was given their phone number to schedule appointment Assessment & Plan (12/24/2022 10:22 AM EDT): Patient here after recently seen at [facility] where she presented with left sided back and leg pain since the day prior. Reported that pain was exacerbated by standing and was radiating down her left leg. Xray showed no acute fracture or dislocation however mild degeneration of the bilateral femoral acetabular joint and enthesopathy along the bilateral greater trochanters. Patient was provided with pain control medication and discharged home with self-care. Today pt c/o persistent low back pain that radiates to the left hip and left leg. Need to rule out radiculopathy. Undergoing PT has 4 sessions left. Pt requesting an MRI. No red flags on Neuro exam Plan: Will refer to [facility] for evaluation , Assessment & Plan (10/15/2022 1:48 PM EDT): Pt with c/o new onset of low back pain On exam , muscle spasm No red flags on neuro exam Plan: Trial of PT first, analgesics , avoid muscle relaxants for now given her age Mixed stress and urge urinary incontinence 09/19 Chest discomfort 09/19/2022 Assessment & Plan (05/11/2024 11:44 AM EDT): Patient with previous c/o recurrent chest discomfort. [...] done, she then proceeded to travel to [facility] before despite my recommendation not to travel until cardiac work up completed. She finally saw the stiff leg operator 05/03/2019 who recommended a stress test, an ECHO and a Holter monitor. Pt did not do any of the tests because back then she was concerned about going to the Hospital due to Covid-19. She subsequently brought me the results of a stress test and [place] of [place] were normal Last visit I explained to her that given that she was complaining of chest pain she needed to be re-evaluated. She had an appointment with Cardiology but today she tells me she decided to re-schedule it for April. Again I discussed with her and her daughter the importance of seeing the stiff leg operator due to her c/o intermittent chest pain. Today she and her daughter tell me they have no recollection of any cardiology appointment. Plan: I have placed another referral for cardiology Assessment & Plan (02/04/2023 1:37 PM EST): Patient with previous c/o recurrent chest discomfort. [...] done, she then proceeded to travel to [place] before despite my recommendation not to travel until cardiac work up completed. She finally saw the stiff leg operator 05/03/2019 who recommended a stress test, an ECHO and a Holter monitor. Pt did not do any of the tests because back then she was concerned about going to the Hospital due to Covid-19. She subsequently brought me the results of a stress test and E[place] both of which were normal Last visit I explained to her that given that she was complaining of chest pain she needed to be re-evaluated. She had an appointment with Cardiology but today she tells me she decided to re-schedule it for April. Again I discussed with her and her daughter the importance of seeing the stiff leg operator due to her c/o intermittent chest pain. Today she tells me the appointment is still for April. Assessment & Plan (12/24/2022 11:06 AM EDT): Patient with previous c/o recurrent chest discomfort. [...] done, she then proceeded to travel to [place] before despite my recommendation not to travel until cardiac work up completed. She finally saw the stiff leg operator 05/03/2019 who recommended a stress test, an ECHO and a Holter monitor. Pt did not do any of the tests because back then she was concerned about going to the Hospital due to Covid-19. She subsequently brought me the results of a stress test and E[place] both of which were normal Last visit I explained to her that given that she was complaining of chest pain she needed to be re-evaluated. She had an appointment with Cardiology but today she tells me she decided to re-schedule it for April. Again I discussed with her and her daughter the importance of seeing the stiff leg operator due to her c/o intermittent chest pain Assessment & Plan (10/15/2022 1:46 PM EDT): Patient with c/o recurrent chest discomfort. Described as intermittent and mild and radiates to her left sifr of her neck . No other associated symptoms. In the past she had c/o left sided chest discomfort on and off never lasting more than a few minutes at a time, with no others associates symptoms, no N/V/D, no sob. Previous EKG at the office was normal. Today EKG is also normal and unchaged I had recommended a stress test to be done, she then proceeded to travel to [place] before despite my recommendation not to travel until cardiac work up completed. She finally saw the stiff leg operator 05/03/2019 who recommended a stress test, an ECHO and a Holter monitor. Pt did not do any of the tests because back then she was concerned about going to the Hospital due to Covid-19. She subsequently brought me the results of a stress test and E[place] both of which were normal Today I have explained to her that given that she is complaining of chest pain she needs to be re-evaluated Plan: Cardiology consult Assessment & Plan (09/19/2022 5:41 PM EDT): Towards the end of the televisit patient mentioned she has had recurrent chest discomfort. Described as intermittent and mild and radiates to her right ear. No other associated symptoms. In the past she had c/o left sided chest discomfort on and off never lasting more than a few minutes at a time, with no others associates symptoms, no N/V/D, no sob. Previous EKG at the office was normal. I had recommended a stress test to be done, she then proceeded to travel to [place] before despite my recommendation not to travel until cardiac work up completed. She finally saw the stiff leg operator 05/03/2019 who recommended a stress test, an ECHO and a Holter monitor. Pt did not do any of the tests because back then she was concerned about going to the Hospital due to Covid-19. She subsequently brought me the results of a stress test and E[place] both of which were normal Today I have explained to her that given that she is complaining of chest pain she needs to be evaluated to do an EKG and have a physical examination. I have asked her to come in to our [facility] or to present herself to her nearest ER. She told me she would come to our [facility] on Friday I explained to her that if she is having chest pain she should not wait until then and that she should go to the nearest ER for an evaluation. She told me she would ask her children to take her. I asked her to come in and see me after she is evaluated in the ER. Pt agreeable with plan Earache on right 09/19/2022 Assessment & Plan (09/19/2022 5:41 PM EDT): Pt with c/o right earache I have recommended for her to come in to our [facility] to be evaluated She needs to be examined to rule out an infection Acute non intractable tension-type headache 04/2022 Assessment & Plan (02/26/2022 9:20 AM EST): Pt initially called to discuss headache, this has since then resolved. No further intervention, all her meds were sent to her Pharmacy as requested with a 90 day supply Liver cyst 02/25/2022 Assessment & Plan (02/25/2022 2:19 PM EST): Pt had an abdominal U/S in [place] 02/09/2020 the impression read: Fatty infiltration and a small cystic area seen in GB fossa, they raised a concern for Choledocal cyst. Pt tells me she walked in to [facility] in [place] The test was not ordered by a Physician Abdominal U/S This was done 06/08/2020 and showed: There are 2 stable simple cysts within the liver, one within the lateral segment, the other within the caudate measuring up to 1.7 cm and 1.6 cm, respectively. No suspicious liver lesions. Cholecystectomy and splenectomy Repeat U/S done 11/21/2021 and showed: Multiple liver cysts which appear simple. No suspicious mass. Otherwise unremarkable abdominal ultrasound. Anxiety 02/25/2022 Assessment & Plan (02/25/2022 2:24 PM EST): Pt previously c/o feeling very anxious while in [place]. She was seen there and was started on Paxil , and propranolol 10 mg po daily ( although she had never mentioned to me that she was taking Propranolol) She is no longer taking Paxil , but she told me on a previous visit that she was taking the Propranolol as needed She was referred to [facility] but patient decided she was not interested in psychotherapy Previously I discussed with her the need to take the Propranolol daily I agreed to continue to prescribe Propranolol 5mg po BID, sin ce pt reports great benefit for her anxiety Primary insomnia 02/25/2022 Assessment & Plan (09/02/2023 11:01 AM EDT): Doing well Patient is on Trazodone 50 mg po qhs,today requesting to 100 mg po qhs Assessment & Plan (12/24/2022 11:04 AM EDT): Doing well Patient is on Trazodone 50 mg po qhs, does not want ot increase dose. Requested a refill today Assessment & Plan (09/19/2022 5:34 PM EDT): Televisit Doing well Patient is on Trazodone 50 mg po qhs, does not want ot increase dose Assessment & Plan (02/25/2022 2:26 PM EST): Pt with c/o persistent insomnia despite managing her restless leg syndrome ( Discovered on Sleep study done 04/24/2020 was Negative for JUANITA, , It only showed restless leg syndrome. Patient is on Trazodone 50 mg po qhs, does not want ot increase dose Restless leg syndrome 02/25/2022 Assessment & Plan (02/25/2022 2:27 PM EST): Pt on Requip 0.25 mg qhs,previously we increased the dose to 0.5 pt c/o palpitations, dose lowered again with good results [facility] care 02/25/2022 Assessment & Plan (02/05/2024 1:26 PM EST): Mammogram: 11/20/2023 Normal. Pap Smear: ABNL: 11/25/2017 + hpv Repeat 03/23/2019 NEGATIVE HPV NEGATIVE at [facility], repeat here 07/12/2020 Colonoscopy: 06/27/2020 Assessment & Plan (09/02/2023 9:19 AM EDT): Mammogram: 10/08/2022 Normal. Will repeat Pap Smear: ABNL: 11/25/2017 + hpv Repeat 03/23/2019 NEGATIVE HPV NEGATIVE at [facility], repeat here 07/12/2020 Colonoscopy: 06/27/2020 Assessment & Plan (03/25/2023 11:24 AM EST): Mammogram: 10/08/2022 Normal Pap Smear: ABNL: 11/25/2017 + hpv Repeat 03/23/2019 NEGATIVE HPV NEGATIVE at [facility], repeat here 07/12/2020 Colonoscopy: 06/27/2020 Assessment & Plan (02/25/2022 2:39 PM EST): Mammogram: 10/02/2021 Normal Pap Smear: ABNL: 11/25/2017 + hpv Repeat 03/23/2019 NEGATIVE HPV NEGATIVE at [facility], repeat here 07/12/2020 Colonoscopy: 06/27/2020 Combined forms of age-related cataract of both e yes 09/15/2019 Chronic otitis externa 06/15/2018 Assessment & Plan (02/25/2022 2:43 PM EST): Pt seen for this in the past by previous PCP responded well to acetic acid drops CT of mastoids 07/20/2020 was unremarkable in the area of her inner ear and mastoid bones other than incidental finding of enhancement of her parotid glands MRI of her parotids negative. seen by ENT at [facility], 01/04/2021 ENT recommended No further follow up Chronic neck pain 06/15/2018 Assessment & Plan (05/11/2024 3:40 PM EDT): Pt here for a follow up Pt [...] I had ordered an MRI of cervical spine, she cancelled the appointment. Today I have discussed with her and her daughter and they requested to proceed with work up. We were able to schedule it for her for this friday Assessment & Plan (03/16/2024 1:13 PM EST): Telehealth Pt with previous c/o intermittent left sided [...] been using Meloxicam 15 mg po daily Pt was referred to PT, given that symptoms have not improved will order an MRI of cervical spine Assessment & Plan (02/05/2024 3:46 PM EST): Pt with previous c/o intermittent left sided neck pain. Today she is complaining of right sided neck pain, she describes it as persistent, moderate intensity, radiating to her right lateral neck. On exam there was no redness, No warmth, No palpable mass, Etiology ? Exam was suggestive of muscle spasm. Previous Plain films of her C-spine to r/o degenerative disc disease of cervical Spine showed: Cervical spine: Degenerative changes. Limited evaluation of the left neural foramen due to patient positioning. 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 There is multilevel cervical spondylosis. Uncovertebral joint spurring and facet arthropathy result in moderate to severe right C3-C4 and severe right C5-C6 bony foraminal stenosis. I suspect her neck pain might be associated with her cervical spondylosis. She has been using Meloxicam 15 mg po daily Today she is agreeable to PT, referral placed. If symptoms do not improve will consider further work up such as an MRI. Assessment & Plan (02/25/2022 2:37 PM EST): Pt with intermittent c/o left sided neck pain. she describes it as persistent, moderate intensity mainly localized over the mastoid process of the temporal bone, radiating to her left lateral neck. On exam there was NO redness, No warmth, No palpable mass, there was tenderness to palpation over the mastoid process, and into the sternomastoid and trapezius muscle. There was also painful ROM on lateral rotation to the left. Etiology ? Exam was suggestive of muscle spasm, although given her Hx of chronic Otitis and exquisite tenderness over the mastoid bone, other etiologies such as chronic mastoiditis will need to be ruled out Plain films of C-spine to r/o degenerative disc disease of cervical Spine showed: Cervical spine: Degenerative changes. Limited evaluation of the left neural foramen due to patient positioning. 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 There is multilevel cervical spondylosis. Uncovertebral joint spurring and facet arthropathy result in moderate to severe right C3-C4 and severe right C5-C6 bony foraminal stenosis. I suspect her neck pain might be associated with her cervical spondylosis. She has been using Meloxicam 15 mg po daily Might consider referral to [facility] Dry eye syndrome of both eyes 06/08/2018 Acquired hypothyroidism 03/09/2018 Assessment & Plan (05/11/2024 11:27 AM EDT): Patient doing well She is now on levothyroxine 75 mcg po daily Lab Results Component Value Date TSH 1.76 02/09/2024 Normal Continue with current regimen Assessment & Plan (02/05/2024 1:25 PM EST): Patient doing well She is now on levothyroxine 75 mcg po daily Last TSH 09/03/2023 Normal Continue with current regimen Will repeat labs Assessment & Plan (09/02/2023 9:18 AM EDT): Patient c/o cold intolerance She is now on levothyroxine 75 mcg po daily Last TSH 03/2023 Normal Continue with current regimen Will repeat labs next month Assessment & Plan (03/25/2023 11:16 AM EST): Patient c/o cold intolerance She is now on levothyroxine 75 mcg lowered from 88 mcg/day. Last TSH12/2022 showed mild suppression For which the dose of Levothyroxine was decreased to 75 mcg. She is requesting to repeat TSH Will repeat labs Assessment & Plan (02/04/2023 1:44 PM EST): Patient currently doing well She was on levothyroxine 88 mcg/day. Last TSH12/2022 showed mild suppression For which the dose of Levothyroxine was decreased to 75 mcg. Today her daughter tells me she never lowered the dose, today she agreed to to so, a new script sent to her pharmact Will repeat labs in 4 months Assessment & Plan (12/24/2022 11:08 AM EDT): Patient currently doing well She is supposed to be on levothyroxine 88 mcg/day. Last TSH 04/2022 showed mild elevation For which the dose of Levothyroxine was increased to 88 mcg Will repeat labs today Assessment & Plan (09/19/2022 8:55 AM EDT): Televisit Patient currently doing well She is on levothyroxine, recently increased to 88 mcg/day. Last TSH and Free T4 05/24/2022 shoed mild elevation of TSH to 5.[address] Tinajero instructed patient to increase Levothyroxine to 88 mcg po daily Assessment & Plan (05/24/2022 10:18 AM EDT): to check thyroid function tests and adjust medications accordingly. Continue levothyroxine 75 mcg and will call back PRN if it needs to be adjusted. FU with PCP in 3 months. Assessment & Plan (02/25/2022 2:17 PM EST): Televisit Patient currently doing well She is on levothyroxine 75 mcg/day. Last TSH and Free T4 06/20/2021 Papanicolaou smear of vagina with atypical squamous cells of undetermined significance (ASC-US) 03/09/2018 Assessment & Plan (09/19/2022 5:42 PM EDT): Used to follow w/[facility] in [facility] We received a Pap smear report from 03/23/2019 that was NEGATIVE with HPV negative as well Pt was seen by Julisa Mcknight repeat Pap 08/07/2021 showed ASCUS HPV neg. Seen by Dr Oliverio Camarillo for colposcopy completed 09/07/2021 Assessment & Plan (02/25/2022 2:22 PM EST): Used to follow w/[facility] in [facility] We received a Pap smear report from 03/23/2019 that was NEGATIVE with HPV negative as well Pt was seen by Julisa Mcknight repeat Pap 08/07/2021 showed ASCUS HPV neg. Seen by Dr Oliverio Camarillo for colposcopy completed 09/07/2021 Primary osteoarthritis of right knee 03/09/2018 Assessment & Plan (02/04/2023 1:42 PM EST): Pt with chronic bilateral knee pain, has done well in the past with knee injections, Was seen at [facility], they recommended surgical intervention per her report but if not to try PT. Previous visit she told me she wanted to be referred to a local junk removal specialist She was last seen at [facility] they recommended steroid injections or consideration of surgical intervention. Pt wanted to go to PT, today she tells me she wanted to wait until after her cataract surgery Assessment & Plan (12/24/2022 10:16 AM EDT): Pt with chronic bilateral knee pain, has done well in the past with knee injections, Was seen at [facility], they recommended surgical intervention per her report but if not to try PT. Previous visit she told me she wanted to be referred to a local junk removal specialist She was last seen at [facility] they recommended steroid injections or consideration of surgical intervention. Pt wants to go to PT Assessment & Plan (02/25/2022 2:21 PM EST): Pt with chronic bilateral knee pain, has done well in the past with knee injections, Was seen at [facility], they recommended surgical intervention per her report but if not to try PT. Previous visit she told me she wanted to be referred to a local junk removal specialist She was referred to Dr Liao at [facility]. Encounters Date Type Department Care Team Description 05/11/2024 11:15 AM EDT Office Visit [facility] [address] [place] [address] Conner Méndez MD Low back pain radiating to both legs (Primary Dx); Chronic neck pain; Chest discomfort; Acquired hypothyroidism; Primary insomnia; Deviated nasal septum 05/11/2024 Telephone [facility] [address] [place] [address] Conner Méndez MD Appointment Confirmation 05/11/2024 Travel 05/08/2024 Refill [facility] [address] [place] [address] Bianka Salazar DO Chronic neck pain 05/07/2024 Population Health Risk Score [facility] [address] [phone] Provider, Population Health Generic 05/05/2024 Telephone [facility] [address] [place] [address] Conner Méndez MD Chart Prep 04/26/2024 Refill [facility] [address] [place] [address] Conner Méndez MD Anxiety; Primary hypertension 04/05/2024 Refill [facility] [address] [place], [place] [phone] Silvana Jarrett ANP Primary insomnia 03/16/2024 1:00 PM EST Telemedicine [facility] [address] [facility] [place] [address] Conner Méndez MD Chronic neck pain (Primary Dx); Acute right-sided low back pain with right-sided sciatica 03/16/2024 Travel 03/12/2024 Telephone [facility] [address] [place] [address] Conner Méndez MD Referral 03/11/2024 Telephone [facility] [address] [place] [address] Conner Méndez MD 03/09/2024 Refill [facility] [address] [place], [place] [phone] Conner Méndez MD Primary insomnia 03/01/2024 Telephone [facility] [address] [place] [address] Conner Méndez MD from Last 3 Months Immunizations Name Administration Dates Next Due Influenza injectable quadriv alent IIV4 with preservative 12/08/2018,11/12/2017,11/26/2016 Influenza injectable quadriv alent preservative free 12/24/2022,01/15/2022,11/30/2020,12/21 Influenza, seasonal, injecta ble, preservative free 02/09/2024 Meningococcal MCV4P [id number] 03/17/2019 Pfizer Covid-19 Vaccine 12+ 06/21/2020, Pfizer Covid-19 Vaccine 12+ Bivalent 03/04/2022 Pfizer Covid-19 Vaccine 12+ leandro-sucrose ([employer] Cap) 10/08/2021 Tdap 05/26/2015 Social History Tobacco Use Types Packs/Day Years Used Date Smoking Tobacco: Never Passive Smoke Exposure: Never Smokeless Tobacco: Never Tobacco Cessation:Counseling Given: Not Answered Depression Answer Date Recorded Patient Health Questionnaire-9 [...] Orientation Straight 12/24/2021 10 :31 AM EDT Last Filed Vital Signs Vital Sign Reading [...] Mass Index 31.56 05/11/2024 11:08 AM EDT Plan of Treatment Upcoming Encounters Date Type Department Care Team (Late st Contact Info) Description 07/20/2024 9:00 AM EDT Office Visit [facility] [address] [facility] [place] [address] Conner Méndez MD [address] [facility] [place] [address] Health Maintenance Due Date Last Done Comments CT Colonography 1961 FIT DNA/Cologuard 1961 FIT 1960 FOBT 1960 HIV Screening 1960 Sigmoidoscopy 1960 Hepatitis C Screening 1979 Hepatitis A Vaccines (1 of 2 - Risk 2-dose series) 02/13/1980 Pneumococcal Vaccine: 50+ Years (1 of 1 - PCV) 2011 Zoster Vaccines (1 of 2) 2011 Dental X-Ray: Full Mouth 03/04/2020 03/03/2017 Hepatitis B Vaccines (1 of 3 - Risk 3-dose series) 2021 RSV Patients and Patients Aged 60 years or older (1 - Risk 60-74 years 1-dose series) 2021 Dental X-Ray: Bitewings 08/02/2021 08/02/19, 09/08/2018, 03/03/2017 Dental Oral Exam 07/11/2022 01/10/2022, 09/2020, 09/08/2018, Additional history exists Dental Prophylaxis 07/22/2022 01/21/2022, 0 08/01/2020, 10/27/2018 COVID-19 Vaccine ( season) 2023 03/04/2022, 10/08/2021, 06/21/2020, Additional history exists Pap Smear 08/07/2024 08/07/2021, 07/12/2020 Depression Screening 09/01/2024 09/02/2023, 09/02/19 24 Mammogram 11/19/2024 11/20/2023, 0806/2022, 10/08/2022, Additional history exists Alcohol/Substance Use Screening 02/04/2025 02/05/2024 SDOH Screening 05/11/2025 05/11/2024 Tobacco Screening 05/11/2025 05/11/2024 DTaP/Tdap/Td Vaccines (2 - Td or Tdap) 05/25/2025 05/26/2015 Cervical Cancer Screening 08/07/2026 HPV/Cotest 08/07/2026 08/07/2021, 06/24, 11/26/2016 Lipid Panel 09/02/2028 09/03/2023 Colonoscopy 06/27/2030 06/27/2020 Colorectal Cancer Screening 06/27/2030 Meningococcal Vaccine Aged Out 03/17/2019 No jane natalie eligible based on patient's age to complete this topic Influenza Vaccine Completed 02/09/2024, , 01/15/2022, Additional history exists HIB Vaccines Aged Out No longer eligi ble based on patient's age to complete this topic HPV Vaccines Aged Out No longer eligi ble based on patient's age to complete this topic IPV Vaccines Aged Out No longer eligi ble based on patient's age to complete this topic RSV under 20 months Aged Out No longe r eligible based on patient's age to complete this topic Rotavirus Vaccines Aged Out No longer eligible based on patient's age to complete this topic Procedures Procedure Name Priority Date/Time Associated Diagnosis Comments MR LUMBAR SPINE WO CONTRAST Routine 03/02/2024 9:03 AM EST Acute right-sided low back pain with right-sided sciatica BI MAMMOGRAM SCREENING TOMOSYNTHESIS BILATERAL Routine 11/20/2023 4:20 PM EDT Encounter for screening mammogram for malignant neoplasm of breast LIPID PANEL, STANDARD Routine 09/03/2023 10:21 AM EDT Acquired hypothyroidism PROPHYLAXIS - ADULT Routine 01/21/2022 1 2:00 AM EST COMPREHENSIVE ORAL EVALUATION - NEW OR ESTABLISHED PATIENT Routine 01/10/2022 12:00 AM EST THINPREP IMAGING PAP AND HPV MRNA E6/E7 WITH REFLEX TO HPV 16,18/45 Routine 08/07/2021 1:17 PM EDT BITEWINGS - 4 RADIOGRAPHIC IMAGES Routine 08/01/2020 12:00 AM EDT HM COLONOSCOPY Routine 06/27/2020 INTRAORAL - COMPLETE SERIES OF RADIOGRAPHIC IMAGES Routine 03/03/2017 12:00 AM EST from Last 3 Months or Most Recently Relevant to Health Maintenance Results * MR Lumbar Spine w/o Contrast (03/02/2024 9:03 AM EST) Anatomical Region Laterality Modality Spine, L-spine Magnetic Resonan ce 03/02/2024 9:03 AM EST Narrative 03/04/2024 7:14 AM EST ? [facility] ?[address] ?[place] [address] ? Magnetic Resonance Report ? Signed ? Patient: Rosemary Mcgovern ?MR#: [id number] ?? 5 ? : 1960 ?Acct:[id number] ? Age/Sex: 64 / F ?ADM Date: 02/09/24 ? Loc: HO.MRI ? Attending Dr: Conner Smith MD ? Ordering Physician: Conner Smith MD ?? Date of Service: 03/02/24 ?? Procedure(s): MR lumbar spine wo con ?? Accession Number(s): [id number] ? cc: Conner Smith MD ? Workstation: [id number] ? EXAMINATION: ??MR LUMBAR SPINE WITHOUT IV CONTRAST ? History: severe right sided low back pain with associated toe numbness ? Technique: Sagittal T1, T2 and STIR, and axial T1 and T2 weighted ?? images of the lumbar spine were obtained per departmental protocol. ? Comparison: Correlation is made with plain films of the lumbar spine ?? dated 11/07/2023. ? Findings: ?? The vertebral bodies maintain normal height and marrow signal ?? intensity. There is slight spondylolisthesis of L3 on L4. There is mild ?? degenerative disc disease with disc desiccation and loss of disc height. ? At L1-2, there is a mild disc bulge. There is facet and ligamentum ?? flavum hypertrophy causing mild central spinal stenosis. The neural ?? foramen are patent. ? At L2-3, there is a mild disc bulge. There is facet osteoarthritis ?? causing mild central spinal stenosis. The neural foramen are patent. ? At L3-4, there is uncovering of the intervertebral discs secondary to ?? spondylolisthesis. In addition, there is a moderate disc bulge with ?? central annular tear. There is severe facet osteoarthritis with ?? resultant severe central spinal stenosis and bilateral neural foraminal ?? narrowing. ? At L4-5, there is a diffuse moderate disc bulge. There is a ?? superimposed moderate right lateral disc herniation. There is facet and ?? ligamentum flavum hypertrophy. There is resultant moderate to severe ?? central spinal stenosis. There is marked narrowing of the right neural ?? foramen. There is narrowing of the inferior recess of the left neural ?? foramen. ? At L5-S1, there is mild facet hypertrophy causing mild bilateral neural ?? foraminal stenosis, left greater than right. There is no central spinal ?? stenosis. ? The conus terminates at the T12-L1 level and demonstrates normal signal ?? intensity. The visualized paraspinal soft tissues are unremarkable. ? MR/MR lumbar spine wo con ?? Impression: ? 1. Mild degenerative disc disease. Grade I spondylolisthesis of L3 on ?? L4. ? 2. Severe central spinal stenosis at L3-4 and L4-5 and mild central ?? spinal stenosis at L1-2 and L2-3. ? 3. Moderate left lateral disc herniation at L4-5. ? 4. Neural foraminal stenosis as discussed above. ? Electronically signed by: ??Alexander Granger MD ??03/04/2024 07:11 AM EST ? Dictated By: ?Alexander Granger MD ? Signed By: ?<Electronically signed by Alexander Granger MD in OV> ?03/04/24 0711 ? DD/ 09 ? TD/TT: 03/02/24 1031 ? Tobacco Cutter: ? Procedure Note Manoj Diaz - 03/04/[address] [address] Magnetic Resonance Report Signed Patient: Iain Mcgovern#: [id number] 5 : 1Acct:[id number] Age/Sex: 64 / FADM Date: 02/09/24 Loc: HO.MRI Attending Dr: Conner Smith MD Ordering Physician: Conner Smith MD Date of Service: 03/02/24 Procedure(s): MR lumbar spine wo con Accession Number(s): [id number] cc: Conner Smith MD Workstation: [id number] EXAMINATION: MR LUMBAR SPINE WITHOUT IV CONTRAST History: severe right sided low back pain with associated toe numbness Technique: Sagittal T1, T2 and STIR, and axial T1 and T2 weighted images of the lumbar spine were obtained per departmental protocol. Comparison: Correlation is made with plain films of the lumbar spine dated 11/07/2023. Findings: The vertebral bodies maintain normal height and marrow signal intensity. There is slight spondylolisthesis of L3 on L4. There is mild degenerative disc disease with disc desiccation and loss of disc height. At L1-2, there is a mild disc bulge. There is facet and ligamentum flavum hypertrophy causing mild central spinal stenosis. The neural foramen are patent. At L2-3, there is a mild disc bulge. There is facet osteoarthritis causing mild central spinal stenosis. The neural foramen are patent. At L3-4, there is uncovering of the intervertebral discs secondary to spondylolisthesis. In addition, there is a moderate disc bulge with central annular tear. There is severe facet osteoarthritis with resultant severe central spinal stenosis and bilateral neural foraminal narrowing. At L4-5, there is a diffuse moderate disc bulge. There is a superimposed moderate right lateral disc herniation. There is facet and ligamentum flavum hypertrophy. There is resultant moderate to severe central spinal stenosis. There is marked narrowing of the right neural foramen. There is narrowing of the inferior recess of the left neural foramen. At L5-S1, there is mild facet hypertrophy causing mild bilateral neural foraminal stenosis, left greater than right. There is no central spinal stenosis. The conus terminates at the T12-L1 level and demonstrates normal signal intensity. The visualized paraspinal soft tissues are unremarkable. MR/MR lumbar spine wo con Impression: 1. Mild degenerative disc disease. Grade I spondylolisthesis of L3 on L4. 2. Severe central spinal stenosis at L3-4 and L4-5 and mild central spinal stenosis at L1-2 and L2-3. 3. Moderate left lateral disc herniation at L4-5. 4. Neural foraminal stenosis as discussed above. Electronically signed by: Alexander Granger MD 03/04/2024 07:11 AM EST Dictated By: Alexander Granger MD Signed By: <Electronically signed by Alexander Granger MD in OV> 03/04/24 0711 DD/ 0903 TD/TT: 03/02/24 1031 Tobacco Cutter: us Conner Guerin MD IMG MRI PROCEDURES Fi nal Result * BI Mammogram Screening Tomosynthesis Bilateral (11/20/2023 4:20 PM EDT) Anatomical Region Laterality Modality Breast Bilateral Mammography 11/20/2023 4:20 PM EDT Narrative 12/02/2023 5:55 PM EDT ? [facility] [place] ? [address] ?[place] [address] ? Mammography Report ? Signed ? Patient: Shaniqua,Rosemary ?MR#: [id number] ?? 5 ? : 1960 ?Acct:[id number] ? Age/Sex: 63 / F ?ADM Date: 11/20/23 ? Loc: HO.MAMMO ? Attending Dr: Conner Smith MD ? Ordering Physician: Conner Smith MD ?Resu ?? lts: 1Negative ? Date of Service: 11/20/23 ?Follow Up: 1 Year From Orig ?? inal Mammogram ? Procedure(s): MM tomosynthesis screening BI ?? Accession Number(s): [id number] ? cc: Conner Smith MD ? EXAMINATION: ?? MM SCREENING DIGITAL BREAST TOMOSYNTHESIS, BILATERAL ? CLINICAL INFORMATION: ? Screening. Asymptomatic. ? COMPARISON: ?? Mammography: Comparison is made with available priors ? TECHNIQUE: ?? Digital breast mammography with tomosynthesis is performed in both the ?? craniocaudal and mediolateral oblique views along with computer-aided ?? detection (CAD). ? FINDINGS: ?? There are scattered areas of fibroglandular density (ACR BI-RADS breast ?? composition Category b). ? There are no significant masses, abnormal calcifications, or other ?? abnormalities. ? MM/MM tomosynthesis screening BI ?? IMPRESSION: ?? No mammographic evidence of malignancy. ? ASSESSMENT: ? BI-RADS BI-RADS 1 - Negative ? RECOMMENDATION: ?? Routine annual mammography screening. ? 1 year F/U ? This examination should not preclude the clinical evaluation of a ?? suspicious palpable abnormality. ? This patient's information was entered into a reminder system with a ?? target due date for their next mammogram. ? Electronically signed by: ??Ericka Guerrier DO ??12/02/2023 05:52 PM EDT ? Dictated By: ?Ericka Guerrier DO ? Signed By: ?<Electronically signed by Ericka Guerrier, DO in OV> ? 12/02/23 1752 ? DD/ 1620 ? TD/TT: 11/20/23 1631 ? Tobacco Cutter: ? Procedure Note Manoj Diaz - 12/02/2023 [facility] [address] [place] [address] Mammography Report Signed Patient: Iain Mcgovern#: [id number] 5 : 1Acct:[id number] Age/Sex: 63 / FADM Date: 11/20/23 Loc: HO.MAMMO Attending Dr: Conner Smith MD Ordering Physician: Conner Smith MDResu lts: 1Negative Date of Service: 11/20/23Follow Up: 1 Year From Orig inal Mammogram Procedure(s): MM tomosynthesis screening BI Accession Number(s): [id number] cc: Conner Smith MD EXAMINATION: MM SCREENING DIGITAL BREAST TOMOSYNTHESIS, BILATERAL CLINICAL INFORMATION: Screening. Asymptomatic. COMPARISON: Mammography: Comparison is made with available priors TECHNIQUE: Digital breast mammography with tomosynthesis is performed in both the craniocaudal and mediolateral oblique views along with computer-aided detection (CAD). FINDINGS: There are scattered areas of fibroglandular density (ACR BI-RADS breast composition Category b). There are no significant masses, abnormal calcifications, or other abnormalities. MM/MM tomosynthesis screening BI IMPRESSION: No mammographic evidence of malignancy. ASSESSMENT: BI-RADS BI-RADS 1 - Negative RECOMMENDATION: Routine annual mammography screening. 1 year F/U This examination should not preclude the clinical evaluation of a suspicious palpable abnormality. This patient's information was entered into a reminder system with a target due date for their next mammogram. Electronically signed by: Ericka Guerrier DO 12/02/2023 05:52 PM EDT Dictated By: Ericka Guerrier DO Signed By: <Electronically signed by Ericka Guerrier DO in OV> 12/02/23 1752 DD/ 1620 TD/TT: 11/20/23 1631 Tobacco Cutter: us Conner Guerin MD IMG BI PROCEDURES Theron shahrzad Result - Final * Lipid Panel, Standard (09/03/2023 10:21 AM EDT) Triglycerides 65 <150 mg/dL [facility] Comment:Desirable Triglyceri de: less than 150 mg/dLBorderline High Triglyceride 150-199 mg/dLHigh Triglyceride: 200-499 mg/dLVery High Triglyceride: greater than or equal to 5OO mg/dL Cholesterol 176 <200 mg/dL [facility] Comment:Desirable Cholestero l: less than 200 mg/dLBorderline High Cholesterol: 200-239 mg/dLHigh Cholesterol: greater than 239 mg/dL LDL Cholesterol Calculated 98 <100 mg/dL [facility] Comment:Desirable LDL: less than 100 mg/dLNear Optimal/Above Optimal LDL: 110- 129 mg/dLBorderline High LDL: 130-159 mg/dLHigh LDL: 160-189 mg/dLVery High LDL: greater than or equal to 190 mg/dL HDL Cholesterol 65 >40 mg/dL [facility] Comment:Desirable HDL: great er than 40 mg/dL Note: This HDL assay may give artificially low results in patients with liver disease. Blood Venous blood specimen / Unknown 09/03/2023 10:21 AM EDT 09/03/2023 12:58 PM EDT us Conner Guerin MD LAB BLOOD ORDERABLES Final Result [facility] [address] [place] [phone] * (ABNORMAL) THINPREP TIS PAP AND HPV mRNA E6/E7 WITH REFLEX TO HPV 16,18/45 (08/07/2021 1:17 PM EDT) Clinical Information: [facility] COMMENT SEE COMMENT [facility] Comment: EXPLANATORY NOTE: ? The Pap is a screening test for cervical cancer. It is ?? not a diagnostic test and is subject to false negative ?? and false positive results. It is most reliable when a ?? satisfactory sample, regularly obtained, is submitted ?? with relevant clinical findings and history, and when ?? the Pap result is evaluated along with historic and ?? current clinical information. ?? COMMENT: This Pap test has been evaluated with computer assisted technology. [facility] Manager Multimedia : SEE COMMENT [facility] Comment: ORAL FERRO(ASCP) CT screening location: [facility] [address] ??[address] General Categorization: EPITHELIAL CELL ABNORMALITY(A) [facility] HPV nRNA E6/E7 Not Detected Not Detected [facility] Comment: Methodology: Head Of Art-Mediated Amplification This assay detects E6/E7 viral messenger RNA (mRNA) from 14 high-risk HPV types (16,18,31,33,35,39,45,51,52,56,58,59,66,68). ? Cervical sources are required for HPV testing. If a vaginal source from a patient who has had a total hysterectomy with removal of cervix was ?? submitted, please contact the testing laboratory for alternative testing options. ?? For additional information, please refer to http://education.Mirakl/faq/ZUF837r6 (This link if provided for information/ educational purposes only.) Interpretation/R esult: SEE COMMENT(A) [facility] Comment: Atypical Squamous Cells of Undetermined Significance (ASC-US) Atrophic pattern; predominantly parabasal cells LMP: KRISTINA [facility] PATHOLOGIST: SEE COMMENT [facility] Comment: Myrna Ng MD, PhD, Board Certified in Anatomic and Clinical Pathology (electronic signature) Consulting Pathologist [facility] [address] [place] [address] Prev. BX: 2018 LEEP: EMILIANO 3 [facility] Prev. PAP: NIL/NEG [facility] SOURCE: None given [facility] Statement Of Adequacy: SATISFACTORY FOR EVALUATION [facility] 08/07/2021 1:17 PM EDT us Julisa HOWE LAB PATHOLOGY ORDERABLES Final Result [facility] [address] * Colonoscopy (06/27/2020) Colonoscopy Normal Normal 06/27/2020 Narrative Kady Linn - 06/27/2020 10:58 AM EDT Recommended 10 year follow up ( see scanned notes) us Historical Provider HEALTH MAINTENANCE Edited Result - Final from Last 3 Months or Most Recently Relevant to Health Maintenance Insurance [place] [facility] MEDICAID STAND ADULT Care Teams Record Changer Relationship Specialty Start Date End Date Conner Méndez MD [address] [place] [address] PCP - General Internal Medicine 12/08/18
--- OUTSIDE RECORDS SUMMARY | 2024-05-15 09:01 | XMS_ITS | Clinical Summary ---
Author Organization [facility] Address [address] [place] [address] Care Team Providers Care Forensic Audit Expert Name Role Phone Conner Smith Primary Care [...] 06/08/2018 Abnormal Pap smear of cervix 02/06/2017 Family History Medical History Relation Name Comments Cataracts Maternal Grandmother Cataracts Mother Liver cancer Mother Blindness Neg Hx Relation Name Status Comments Father Maternal Grandmother Mother Social History Tobacco Use Types Packs/Day Years [...] 06/27/2020 2:00 PM EDT Plan of Treatment Health Maintenance Due Date Last Done Comments Cologuard 1960 FOBT / Fit Test 1961 HIV Screening 1960 HPV and Pap Smear 1961 Hepatitis C Screening 1961 Sigmoidoscopy 1961 Mammogram 2001 Pneumococcal Vaccine: 50+ Years (1 of 1 - PCV) 2011 Zoster Vaccines (1 of 2) 2011 Cervical Cancer Screening 03/23/2022 Pap Smear 03/23/2022 03/23/2019, 02/25, 11/25/2017, Additional history exists COVID-19 Vaccine (3 - season) 2023 06/21/2020, 05/31/2020 Influenza Vaccine (#1) 2023 , 12/22/2019, 12/08/2018, Additional history exists Alcohol/Substance Use Screening 02/25/2024 Depression Screening and Follow-Up 02/25/2024 Social Drivers of Health Annual Screening 02/25/2024 DTaP,Tdap,and Td Vaccines (2 - Td or Tdap) 05/25/2025 05/26/2015 Colon Cancer Screening 06/27/2030 Colonoscopy 06/27/2030 06/27/2020, 06/27/2020 RSV Vaccine (60+ years old and patients) (1 - 1-dose 75+ series) 02/13/2036 Hepatitis B Vaccines Aged Out No long er eligible based on patient's age to complete this topic Procedures * Due to [place] [employer] law, this organization might not be sharing negative HIV tests. Procedure Name Priority Date/Time Associated Diagnosis Comments COLONOSCOPY 06/27/2020 PAP Routine 03/23/2019 2:47 PM EST Atypical squamous cells of undetermined significance on cytologic smear of cervix (ASC-US) from Last 3 Months or Most Recently Relevant to Health Maintenance Results * Due to [place] [employer] law, this organization might not be sharing negative HIV tests. * COLONOSCOPY (06/27/2020) Narrative Procedure Note Charli Jaramillo MD - 06/27/2020 2:09 PM EDT [facility] Patient Name: Rosemary Mcgovern Procedure Date: 06/27/2020 2:09 PM Date of : 1960 Age: 60 Room: [place] [address] Gender: Female Note Status: Finalized Attending MD: [...] Estimated Blood Loss: Estimated blood loss: none. Charli Jaramillo MD PROVATION PROCEDURES Final Re sult from Last 3 Months or Most Recently Relevant to Health Maintenance Insurance [facility] [place] [id number] Care Teams Forensic Audit Expert Relationship Specialty Start Date End Date Conner Smith [address] [place] [address] PCP - General Internal Medicine 09/15/19
== END 2024-05-15 08:54 | disposition home or self-care (01) ==
LOC: HO.MRI 08:53
PROVIDERS: Visit Provider Internal Medicine
DX: M54.2 Cervicalgia (principal); G89.29 Other chronic pain
CPT/HCPCS: 72141

== ENCOUNTER → 2024-05-15 09:03 | Outpatient (BNV) | payer MEDICAID, SELFPAY | PROVIDERS: Visit Provider Radiology Diagnostic Radiology | DX: M47.812 Spondylosis without myelopathy or radiculopathy, cervical region (principal) | CPT/HCPCS: 72141 ==

== ENCOUNTER 2024-05-18 15:36 | Emergency (ER) | payer MEDICAID, SELFPAY ==
--- NOTE | ~2024-05-18 | XR_ITS ---
EXAMINATION: XR CHEST CLINICAL INFORMATION: pain COMPARISON: 04/20/2017. TECHNIQUE: PA view of the chest was obtained. FINDINGS: The cardiac, hilar, and mediastinal contours are normal. The lungs are clear bilaterally. No pneumothorax or effusion. No focal osseous or soft tissue abnormality. XR/XR chest 1V IMPRESSION: No active pulmonary disease. Electronically signed by: Keo Haskins MD 05/18/2024 04:09 PM EDT
--- NOTE | 2024-05-18 15:39 | ECG_ITS ---
Test Reason : cp Blood Pressure : */* mmHG Vent. Rate : 69 BPM Atrial Rate : 69 BPM P-R Int : 180 ms QRS Dur : 76 ms QT Int : 408 ms P-R-T Axes : 60 34 44 degrees QTcB Int : 437 ms Normal sinus rhythm Low voltage QRS Poor R wave progression Abnormal ECG When compared with ECG of 20-Apr-2017 02:19, No significant change was found Referred By: Generic ED Physician Electronically Signed By: CLARK ALVARADO MD
[2024-05-18 15:47] VITALS: BP 139/75; PULSE 71; RESP 18; TEMP 36.7; O2SAT 98; BMI 31.6
--- NOTE | 2024-05-18 15:53 | ED.CHESTPAIN ---
HPI - Chest Pain General Chief Complaint: Chest Pain Stated Complaint: Chest pain Related Data Previous Rx's ?Medication ?Instructions ?Recorded cyclobenzaprine 5 mg tablet 5 mg PO Q8H PRN pain (scale score 11/07/22 7-10) 5 days #14 tabs hydrocodone 5 mg-acetaminophen 325 1 tab PO Q8H PRN pain, severe 3 11/07/22 mg tablet days #9 tabs lidocaine 5 % topical patch 1 patch topical DAILY PRN pain #30 11/07/22 (Lidoderm) ea naproxen 500 mg tablet 500 mg PO BID PRN pain 10 days #20 11/07/22 tabs walker #1 ea 11/07/22 cyclobenzaprine 10 mg tablet 10 mg PO BEDTIME PRN muscle spasm 11/07/23 #7 tabs lidocaine 4 % topical patch 1 patch topical DAILY PRN pain #30 11/07/23 ea prednisone 20 mg tablet 40 mg (2 x 20 mg) PO DAILY 5 days 11/07/23 #10 tabs Allergies Allergy/AdvReac Type Severity Reaction Status Date / Time No Known Allergies Allergy Verified 05/18/24 15:49 [No Known Allergies*] [facility] Social History Social History Advance Directives: No Advance Directives Information Provided: No Physical Exam Vital Signs: Vital Signs: Last Vital Signs Temp 98.1 F 05/18/24 15:47 Pulse 71 05/18/24 15:47 Resp 18 05/18/24 15:47 BP 139/75 05/18/24 15:47 Pulse Ox 98 05/18/24 15:47 O2 Del Method Room Air 05/18/24 15:47 BMI result Body Mass Index 31.6 Course Course Course Narrative: This is a rapid medical exam performed by Ximena Rowan PA-C. The patient is a 64-year-old female with a history of chronic pain currently admits physical therapy, who presents with chest pain x2 days. Patient has been having intermittent symptoms of anterior chest discomfort that radiates to the right neck and shoulder. Denies recent cough or cold symptoms, diaphoresis, shortness of breath or new activity that could have precipitated the discomfort. On exam she has palpable pain across entire anterior chest no deformity. We will be screening basic labs troponin BNP chest x-ray EKG. The patient is stable and can return to the waiting room pending her full medical assessment. Medical Decision Making Lab Data 05/18/24 15:56 05/18/24 15:56 Labs: Lab Results 05/18/24 Range/Units 15:56 WBC 3.6 L (4.8-10.8) X10*3/uL RBC 4.45 (4.20-5.50) X10*6/uL Hgb 12.6 (12.0-16.0) g/dl Hct 38.6 (37.0-47.0) % MCV 86.7 (80.0-98.0) fL MCH 28.3 (27.0-33.0) pg MCHC 32.6 (31.0-35.0) g/dl RDW 12.9 (11.0-16.0) % Plt Count 310 (160-400) X10*3/uL MPV 8.8 L (9.4-12.3) fL Immature Gran % (Auto) 0.0 (0.0-0.4) % Neut % (Auto) 34.8 L (45-73) % Lymph % (Auto) 51.1 H (20-40) % Stephens % (Auto) 9.3 (2-11) % Eos % (Auto) 3.4 (0-4) % Baso % (Auto) 1.4 (0-2) % Lymph # (Auto) 1.8 (1.2-4.9) X10*3/uL Stephens # (Auto) 0.3 (0.1-1.2) X10*3/uL Eos # (Auto) 0.1 (0.0-0.4) X10*3/uL Baso # (Auto) 0.1 (0.0-0.2) X10*3/uL Abs Immat Gran (auto) 0.00 (0.00-0.03) X10*3/uL Absolute Neuts (auto) 1.2 L (2.0-8.3) x10*3/uL Absolute Nucleated RBC 0.000 (0.0-0.012) X10*3/uL Nucleated RBC % (auto) 0.0 (0.0-0.2) /100WBC Sodium 140 (135-145) mmol/L Potassium 4.4 (3.3-5.1) mmol/L Chloride 109 H (96-108) mmol/L Carbon Dioxide 25 (22-29) mmol/L Anion Gap 10 L (12-20) BUN 15 (9-16) mg/dL Creatinine 0.64 (0.5-1.4) mg/dL Estim Creat Clear Calc 73.7 Estimated GFR > 60 Random Glucose 94 (60-115) mg/dL Calcium 9.5 (8.4-10.2) mg/dL Magnesium 2.2 (1.6-2.6) mg/dL Total Bilirubin 0.5 (0.0-1.0) mg/dL AST 29 (5-31) U/L ALT 38 H (0-31) U/L Alkaline Phosphatase 73 (39-117) U/L Troponin I High Sens < 2.7 (<3.5-17.0) ng/L B-Natriuretic Peptide 65 (<100) pg/mL Total Protein 7.0 (6.5-8.0) g/dL Albumin 4.0 (3.5-5.0) g/dL Discharge Plan Discharge Clinical Impression: Chest pain Patient Disposition: Left W/O Completing Treatment Prescriptions: No Action hydrocodone-acetaminophen 5-325 mg tablet 1 tab PO Q8H PRN (Reason: pain, severe) 3 Days Qty: 9 0RF Rx Instructions: Partial Fill upon patient request. lidocaine [Lidoderm] 5 % adhesive patch,medicated 1 patch topical DAILY MDD remove after 12 hours PRN (Reason: pain) Qty: 30 0RF Rx Instructions: leave on most painful area for up to 12 hrs naproxen 500 mg tablet 500 mg PO BID PRN (Reason: pain) 10 Days Qty: 20 0RF cyclobenzaprine 5 mg tablet 5 mg PO Q8H PRN (Reason: pain (scale score 7-10)) 5 Days Qty: 14 0RF (DYLON) rex Corbin See Rx Instructions .Route Qty: 1 0RF Rx Instructions: As directed prednisone 20 mg tablet 40 mg PO DAILY 5 Days Qty: 10 0RF lidocaine 4 % adhesive patch,medicated 1 patch topical DAILY PRN (Reason: pain) Qty: 30 0RF cyclobenzaprine 10 mg tablet 10 mg PO BEDTIME PRN (Reason: muscle spasm) Qty: 7 0RF Rx Instructions: side effect is drowsiness. Do not take at work or while driving. Discharge Date/Time: 05/18/24 18:53
[2024-05-18 16:06] LABS: MANUAL DIFF FLAG NO
[2024-05-18 16:11] LABS: Basophils Absolute Auto 0.1 X10*3/uL (0.0-0.2); Basophils Percent Auto 1.4 % (0-2); Eosinophils Absolute Auto 0.1 X10*3/uL (0.0-0.4); Eosinophils Percent Auto 3.4 % (0-4); Hematocrit 38.6 % (37.0-47.0); Hemoglobin 12.6 g/dl (12.0-16.0); Lymphocytes Absolute Auto 1.8 X10*3/uL (1.2-4.9); Lymphocytes Percent Auto 51.1 % (20-40); Mean Corpuscular HGB Conc 32.6 g/dl (31.0-35.0); Mean Corpuscular Hemoglobin 28.3 pg (27.0-33.0); Mean Corpuscular Volume 86.7 fL (80.0-98.0); Mean Platelet Volume 8.8 fL (9.4-12.3); Monocytes Absolute Auto 0.3 X10*3/uL (0.1-1.2); Monocytes Percent Auto 9.3 % (2-11); Neutrophils Absolute Auto 1.2 x10*3/uL (2.0-8.3); Neutrophils Percent Auto 34.8 % (45-73); Platelet Count 310 X10*3/uL (160-400); Red Blood Count 4.45 X10*6/uL (4.20-5.50); Red Cell Distribution Width 12.9 % (11.0-16.0); White Blood Count 3.6 X10*3/uL (4.8-10.8)
[2024-05-18 16:28] LABS: B Type Natriuretic Peptide 65 pg/mL (<100)
[2024-05-18 16:30] LABS: Alanine Aminotransferase 38 U/L (0-31); Anion Gap 10 (12-20); Aspartate Amino Transferase 29 U/L (5-31); Bilirubin Total 0.5 mg/dL (0.0-1.0); Blood Urea Nitrogen 15 mg/dL (9-16); Calcium 9.5 mg/dL (8.4-10.2); Carbon Dioxide 25 mmol/L (22-29); Chloride 109 mmol/L (96-108); Creatinine Clr Calc Pharmacy 73.7; Estimated Glomerular Filt Rate > 60; Glucose Random 94 mg/dL (60-115); Magnesium 2.2 mg/dL (1.6-2.6); Potassium 4.4 mmol/L (3.3-5.1); Sodium 140 mmol/L (135-145); Troponin-I High Sensitivity < 2.7 ng/L (<3.5-17.0)
[2024-05-18 16:45] LABS: Alkaline Phosphatase 73 U/L (39-117)
== END 2024-05-18 18:53 | disposition left against medical advice (07) ==
PROVIDERS: Physician Assistant Medical; Emergency Provider Emergency Medicine; PCP Internal Medicine
DX: R07.9 Chest pain, unspecified (principal); M54.2 Cervicalgia; M25.519 Pain in unspecified shoulder
CPT/HCPCS: 36415; 71045; 80053; 83735; 83880; 84484; 85025; 93005; 99283

== ENCOUNTER → 2024-05-18 15:39 | Outpatient (BNV) | payer MEDICAID, SELFPAY | PROVIDERS: Emergency Provider Emergency Medicine; PCP Internal Medicine; Visit Provider Internal Medicine Cardiovascular Disease | DX: R07.9 Chest pain, unspecified (principal); R94.31 Abnormal electrocardiogram [ECG] [EKG] | CPT/HCPCS: 93010 ==

== ENCOUNTER → 2024-05-18 15:48 | Outpatient (BNV) | payer MEDICAID, SELFPAY | PROVIDERS: PCP Internal Medicine; Visit Provider Radiology Diagnostic Radiology | DX: R07.9 Chest pain, unspecified (principal) | CPT/HCPCS: 71045 ==

== ENCOUNTER 2024-10-11 13:58 | Outpatient (AMB) | payer MEDICAID, SELFPAY ==
[2024-10-11 14:04] VITALS: BP 120/80; PULSE 75; BMI 31.3
--- NOTE | 2024-10-11 14:04 | A.OFFVIS_ITS ---
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 Intake Note: New patient chest pain mostly at rest can last and year or 2 mostly Mechatronics Technician Required: Yes Mechatronics Technician Services: Mechatronics Technician Offered & Declined Manager Application: Manager Application Present Accompanied by: Daughter Allergies No Known Allergies (No Known Allergies*) Allergy (Verified 05/18/24 15:49) Medication List - Last Reconciled 10/11/24 by Tommy Wesley MD cholecalciferol (vitamin D3) (Vitamin D3) 25 mcg PO QAM hydrocodone-acetaminophen 5-325 mg 1 tab PO Q8H PRN 3 days levothyroxine 75 mcg PO QAM lidocaine 4% 1 patch topical DAILY PRN multivitamin with folic acid 400 mcg (Daily-[place] (with folic acid)) 1 tab PO QAM propranolol 5 mg PO BID ropinirole 0.25 mg PO BEDTIME trazodone 100 mg PO BEDTIME walker As directed HPI Comments Details: Rosemary was referred here for evaluation of precordial chest pain. Patient is a 64 year female with prior history of tachyarrhythmia on propranolol therapy prescribed some years back. She has been getting precordial chest discomfort which she describes as tightness or pressure mostly at rest. She can not exercise much because of bilateral knee issues and currently on meloxicam as well as appears to be hydrocodone although she refused as she is taking any narcotics. She does have history of anxiety. Patient says the symptoms been happening for couple years. Symptoms have become more intense recently. Couple weeks ago she had more intense symptoms and with radiation to the right jaw and she got really concerned. Symptoms also lasted for long period time. There was no clear pattern to the symptoms. Can happen 3 to 4 times a week. Initially symptoms used to last for 5 minutes and now lasting longer and she has got concerned about it. No associated diaphoresis, shortness of breath. She has not had any exertional symptoms although her exercise capacity is limited. She denies any prolonged palpitation irregular heartbeat and says had propranolol is helped her symptoms a lot. Review of Systems Const Denies chills, Denies daytime sleepiness, Denies fatigue, Denies fever(s), Denies frequent falls, Denies poor appetite, Denies snoring, Denies stops br eathing during sleep, Denies weakness, Denies weight gain and Denies weight loss Eyes Denies loss of vision ENT Denies dizziness and Denies hearing loss Card Reports chest pain, Denies claudication, Denies leg edema, Denies lightheadedness, Denies palpitations, Denies dyspnea, Denies dyspnea on exertion and Denies orthopnea Resp Denies cough, Denies excessive phlegm production, Denies dyspnea, Denies dyspnea on exertion, Denies snoring and Denies wheezing GI Denies abdominal pain, Denies hematochezia, Denies change in bowel habits, Denies nausea and Denies vomiting Denies urinary frequency and Denies dysuria Musc Denies arthralgias, Denies muscle weakness and Denies numbness Skin/Breast Denies nail changes and Denies rash Neuro Denies Abnormal speech present, Denies dizziness, Denies frequent falls, Denies loss of vision, Denies memory loss, Denies numbness and Denies weakness Psych Denies depression and Denies memory loss Endo Denies fatigue and Denies palpitations Derik/Lymph Reports easy bruising and Reports other (anemia) Aller/Immun Denies wheezing Physical Exam Vital Signs: Last Vital Signs Pulse 75 10/11/24 14:04 BP 120/80 10/11/24 14:04 BMI result Body Mass Index 31.3 Const General: cooperative, comfortable, no acute distress, alert and awake Nutritional Appearance: overweight Orientation/consciousness: patient oriented x3 Limitations: no limitations HEENT Head: Yes normocephalic and Yes atraumatic Neck Neck: Yes trachea midline, Yes supple and Yes no JVD Resp Effort & Inspection: normal respiratory effort Auscultation: clear to auscultation bilaterally Cardio Jugular venous distension: no JVD Palpation: normal PMI Rate: regular rate Rhythm: regular rhythm Heart sounds: S1 normal heart sound present, S2 normal heart sound present, no click, no gallops, no murmurs and no rubs GI Auscultation: normal bowel sounds Skin General skin exam: no rashes or lesions noted Neuro General: patient oriented x3 and no focal motor deficits Speech: No Abnormal speech present Extrem General: Yes no clubbing, cyanosis or edema Office Procedures EKG Details: EKG shows normal sinus rhythm with low-voltage QRS otherwise normal EKG 45268-[id number], Complete Assessment & Plan Assessment & Plan (1) Atypical chest pain: Code(s): R07.89 - Other chest pain Category: Medical Plan: Atypical chest pain in this middle-aged woman with no major significant risk factors although she has inability to exercise due to bilateral knee arthritis. Would suggest a vasodilating myocardial perfusion imaging to assess for myocardial ischemia. Also suggest an echocardiogram to evaluate LV structure including LV systolic and diastolic function to evaluate for LVH as well as pulmonary hypertension. This was discussed with her. Further treatment based on the findings of these test results. If these are within normal limits, can pursue GI workup. This was discussed with her. (2) Cardiac arrhythmia: Code(s): I49.9 - Cardiac arrhythmia, unspecified Plan: Patient has prior history of palpitation question cardiac arrhythmias or sinus tachycardia probably related anxiety disorder. She says symptoms have been very well controlled on low-dose propranolol therapy. That can be continued for now. Stress mitigation strategies pursued. Avoidance of stimulants was discussed. Will follow up in the clinic if need be. Thank you for allowing me to partake in her care Orders: Orders CA lexiscan stress w jackeline Today R07.89 - Other chest pain CA echo transthoracic complete Today R07.89 - Other chest pain Medications: Discontinued cyclobenzaprine Discontinued Reason: Patient Completed Course 5 mg PO Q8H 5 days PRN 14 tabs 0RF pain (scale score 7-10) lidocaine 5% (Lidoderm) leave on most painful area for up to 12 hrs Discontinued Reason: Patient Completed Course 1 patch topical DAILY PRN 30 ea 0RF pain MDD remove after 12 hours prednisone Discontinued Reason: Patient no longer taking 40 mg (2 x 20 mg) PO DAILY 5 days 10 tabs 0RF naproxen Discontinued Reason: Patient Completed Course 500 mg PO BID 10 days PRN 20 tabs 0RF pain cyclobenzaprine side effect is drowsiness. Do not take at work or while driving. Discontinued Reason: Patient Completed Course 10 mg PO BEDTIME PRN 7 tabs 0RF muscle spasm Coding Level of Care Code New Pt Level 4 (85746) Complex EM visit Add On G2211 Diagnoses Atypical chest pain R07.89 Cardiac arrhythmia I49.9 CPT Codes EKG - CPT: 93755-[id number], Complete ([id number])
--- OUTSIDE RECORDS SUMMARY | 2024-10-11 14:46 | XMS_ITS | Clinical Summary ---
Author Organization [facility] Address [address] [place] [address] Phone Care Team Providers Care Tax Compliance Representative Name Role Phone Conner Smith MD Primary Care Provi giovani Social History Tobacco Use Types Packs/Day Years Used Date Smoking Tobacco: Never Assessed Comments Unknown Sex and Gender Information Value Date Recorded Sex Assigned at Not on file Legal Sex Female 11:00 AM EST Gender Identity Not on file Sexual Orientation Not on file Plan of Treatment Upcoming Encounters Date Type Department Care Team ([facility] Contact Info) Description 12/14/2024 10:15 AM EDT Office Visit Orthopedic Surgery [facility] [address] [phone] Avelino Morocho, DPM [address] [address] Health Maintenance Due Date Last Done Comments Breast Cancer Screening 1960 DTaP,Tdap,and Td Vaccines (1 - Tdap) 02/13/1980 Cervical Cancer Screening: P ap Smear 1982 Pneumococcal Vaccine: 50+ Ye ars (1 of 1 - PCV) 2011 Zoster Vaccines (1 of 2) 2011 COVID-19 Vaccine ( - 2023-2 5 season) 2023 Depression Screening 02/25/2024 Colorectal Cancer Screening: Colonoscopy 09/28/2024 HIV Screening 09/28/2024 Hepatitis C Screening 09/28/2024 Social Influencers of Health Screening 09/28/2024 Influenza Vaccine (#1) 2024 RSV Immunization Adult Patie nts (1 - 1-dose 75+ series) 02/13/2036 HIB Vaccines Aged Out No longer eligi ble based on patient's age to complete this topic HPV Vaccines Aged Out No longer eligi ble based on patient's age to complete this topic Hepatitis A Vaccines Aged Out No long er eligible based on patient's age to complete this topic Hepatitis B Vaccines Aged Out No long er eligible based on patient's age to complete this topic IPV Vaccines Aged Out No longer eligi ble based on patient's age to complete this topic MMR Vaccines Aged Out No longer eligi ble based on patient's age to complete this topic Meningococcal ACWY Vaccine Aged Out N o longer eligible based on patient's age to complete this topic Meningococcal B Vaccine Aged Out No l onger eligible based on patient's age to complete this topic RSV Immunization Patients Un giovani 20 months Aged Out No longer eligible b ased on patient's age to complete this topic Varicella Vaccines Aged Out No longer eligible based on patient's age to complete this topic Insurance MEDICAID - [place] Care Teams Tax Compliance Representative Relationship Specialty Start Date End Date Conner Smith MD [address] [place] [address] PCP - General Internal Medicine 09/28/24
--- OUTSIDE RECORDS SUMMARY | 2024-10-11 14:46 | XMS_ITS | Encounter Summary ---
Author Organization [employer] Address [address] [facility] [address] [place] [address] Care Team Providers Care Reactor Service Operator Name Role Phone Conner Méndez MD Primary Care Provide r Encounter Details Date Type Department Care Team (Late Contact Info) Description 06/27/2022 Abstract [facility] [address] [place] [phone] Conner Méndez MD [address] [place] [address] [phone] Social History Tobacco Use Types Packs/Day Years Used Date Smoking Tobacco: Never Smokeless Tobacco: Never Comments Unknown Sex and Gender Information Value Date Recorded Sex Assigned at Female 12/24/2021 10:31 AM EDT Legal Sex Female 10:31 AM EDT Gender Identity Female 12/24/2021 10:31 AM EDT Sexual Orientation Straight 12/24/2021 10 :31 AM EDT documented as of this encounter Plan of Treatment Upcoming Encounters Date Type Department Care Team (Late st Contact Info) Description 12/21/2024 10:15 AM EDT Office Visit [facility] [address] [place] [address] [phone] Conner Méndez MD [address] [place], [place] [phone] documented as of this encounter Procedures Procedure Name Priority Date/Time Associated Diagnosis Comments COLONOSCOPY Routine 06/27/2020 documented in this encounter Results * Hm Colonoscopy (06/27/2020) Colonoscopy Normal Normal 06/27/2020 Narrative Kady Linn - 06/27/2020 10:58 AM EDT Recommended 10 year follow up ( see scanned notes) us Historical Provider HEALTH MAINTENANCE Edited Result - Final documented in this encounter Visit Diagnoses Not on filedocumented in this encounter Care Teams Reactor Service Operator Relationship Specialty Start Date End Date Conner Méndez MD [address] [place] [id number] PCP - General Internal Medicine 12/08/18 documented as of this encounter
--- OUTSIDE RECORDS SUMMARY | 2024-10-11 14:46 | XMS_ITS | Clinical Summary ---
Author Organization [facility] Address [address] [place] [address] Care Team Providers Care Cupola Repairer Name Role Phone Conner Smith Primary Care [...] 97 01/04/2021 3:45 PM EST Temperature 36.3 C (97.3 F) 06/27/2020 3:00 PM EDT Respiratory Rate 18 01/04/2021 3:45 PM EST [...] Cancer Screening 03/23/2022 Pap Smear 03/23/2022 03/23/2019, 1003/2017, 02/06/2017 COVID-19 Vaccine ( season) 2023 06/21/2020, 05/31/2020 Alcohol/Substance Use Screening 02/25/2024 Depression Screening and Follow-Up 02/25/2024 Social Drivers of Health Annual Screening 02/25/2024 Influenza Vaccine (#1) 2024 , 12/22/2019, 12/08/2018, Additional history exists DTaP,Tdap,and Td Vaccines (2 - Td or Tdap) 05/25/2025 05/26/2015 Colon Cancer Screening 06/27/2030 Colonoscopy 06/27/2030 06/27/2020, 06/27/2020 RSV Vaccine (60+ years old and patients) (1 - 1-dose 75+ series) 02/13/2036 Hepatitis B Vaccines Aged Out No long er eligible based on patient's age to complete this topic Procedures * Due to [place] [employer] law, this organization might not be sharing negative HIV tests. Procedure Name Priority Date/Time Associated Diagnosis Comments COLONOSCOPY 06/27/2020 PAP Routine 03/23/2019 2:47 PM EST Atypical squamous cells of undetermined significance on cytologic smear of cervix (ASC-US) from Last 3 Months or Most Recently Relevant to Health Maintenance Results * Due to [place] [employer] law, this organization might not be sharing negative HIV tests. * COLONOSCOPY (06/27/2020) Narrative Procedure Note Charli Jaramillo MD - 06/27/2020 2:09 PM EDT [facility] Patient Name: Rosemary Mcgovern Procedure Date: 06/27/2020 2:09 PM Date of : 1960 Age: 60 Room: [place] [address] Gender: Female Note Status: Finalized Attending MD: [...] Jaramillo MD PROVATION PROCEDURES Final Re sult * Pap (03/23/2019 2:47 PM EST) Specimen Adequacy Satisfactory for evaluation [facility] MANUAL 03/31/2019 1:56 PM EST [facility] Pathologist Cytology Interpretation Negative for intraepithelial lesion or malignancy. [facility] MANUAL 03/31/2019 1:56 PM EST [facility] at 1356 EST Comment:This is the result o f a morphological screening test with an inherent possibility of a false negative interpretation. Rat Farmer Statement This Pap test was examined by the [facility], [employer], [place], [place]. This Pap test was examined in accordance with the [facility] written policy, which incorporates all CLIA mandates. Screening guidelines can be found in Am J Clin Pathol 2012;137:516-542. We endorse the practice guidelines developed by ASCCP and published in the Journal Lower Genital Tract Disease 17(5):S1-S27 (2013). [facility] MANUAL 03/31/2019 1:56 PM EST [facility] Clinical History ascus hpv + [facility] MANUAL 03/31/2019 1:56 PM EST [facility] HPV High Risk DNA Subtypes NEGATIVE [facility] MANUAL 03/31/2019 1:56 PM EST [facility] Test Description Specimens were tested for high risk HPV using the FDA approved Digene Hybrid Capture II kit, in the Diagnostic Molecular Oncology Lab at [facility]. This test can detect HPV high risk types 16, 18, 31, 33, 35, 39, 45, 51, 52, 56, 58, 59 and 68. High-risk subtypes of HPV are found in 96% of patients with high grade squamous intraepithelial lesions and cervical squamous cell carcinoma. Additional studies may be indicated in spite of a negative HPV test, e.g. in patients with a friable cervix or multiple previous abnormal pap tests. HPV testing is not recommended for managing patients with atypical glandular cells. Not all high-risk HPV infections are associated with a histologic or cytologic abnormality. We endorse the recommendations of the [place] Society for Colposcopy and Cervical Pathology for management of pap test results, available at www.asccp.org. ASCCP guidelines also recommend HPV 16/18 genotyping in patients over the age of 30 who have had positive high risk HPV testing, but have a negative morphologic Pap test: (http://www.asccp .org/consensus.sh tml). [facility] MANUAL 03/31/2019 1:56 PM EST [facility] ASR Disclaimer The performance characteristics of this test have been validated by the Laboratory of Diagnostic Molecular Oncology. They have not been cleared or approved by the U.S. Food and Drug Administration (FDA). The FDA has determined that such clearance or approval is not necessary. The laboratory is certified under the Clinical Laboratory Improvement Amendments of 1988 (CLIA-88) as qualified to perform high complexity clinical laboratory testing. [facility] MANUAL 03/31/2019 1:56 PM EST [facility] Resulting Agency Case was signed out at [facility], Department of Pathology, [employer] 3 CLIA [id number] [facility] MANUAL 03/31/2019 1:56 PM EST [facility] Report Header Gynecologic Cytology Report Case: [id number] Authorizing Provider: Eva Mcclain MD Collected: 03/23/2019 1447 Ordering Location: [facility] Received: 03/23/[address] [place] [address] Obstetrics and Gynecology First Screen: Darrel Jones Rescreen: Augustin Moreland Specimen: Screening ThinPrep Pap, Cervix/Endocervix 03/31/2019 1:56 PM EST [facility] Brushing Cervix uteri structure / Unknown Non-Blood Collection / Unknown 03/23/2019 2:47 PM EST 03/23/2019 4:21 PM EST us Eva Mcclain MD LAB PATHOLOGY/CYTOLOGY ORDER HAYDEE Final Result [facility] [address] [place] [id number], from Last 3 Months or Most Recently Relevant to Health Maintenance [place] [address] [place] [address] [place] [id number] Care Teams Cupola Repairer Relationship Specialty Start Date End Date Conner Smith [address] [place] [address] PCP - General Internal Medicine 09/15/19
== END 2024-10-11 14:38 | disposition home or self-care (01) ==
LOC: HO.HCS 13:59
PROVIDERS: PCP Internal Medicine; Visit Provider Internal Medicine Cardiovascular Disease
DX: R07.89 Other chest pain (principal); I49.9 Cardiac arrhythmia, unspecified
CPT/HCPCS: 93010; 99214

== ENCOUNTER → 2024-10-11 13:58 | Outpatient (BNVA) | payer MEDICAID, SELFPAY | PROVIDERS: PCP Internal Medicine; Visit Provider Internal Medicine Cardiovascular Disease | DX: R07.89 Other chest pain (principal); I49.9 Cardiac arrhythmia, unspecified | CPT/HCPCS: 93005; 99212 ==

== ENCOUNTER 2024-11-23 10:03 | Outpatient (REF) | payer MEDICAID, SELFPAY ==
--- OUTSIDE RECORDS SUMMARY | 2024-11-23 11:07 | XMS_ITS | Encounter Summary ---
Author Organization [employer] Address [address] [facility] [address] [place] [address] Care Team Providers Care Corn Husker Name Role Phone Conner Méndez MD Primary Care Provide r Encounter Details Date Type Department Care Team (Latest Contact Info) Description 01/10/[address] [facility] CONVERSIONS Dental, Provider, DDS Social History [...] Description 12/21/2024 10:15 AM EDT Office Visit [facility] [address] [place], [place] [phone] Conner Méndez MD [address] [place] [address] documented as of this encounter Visit Diagnoses Not on filedocumented in this encounter Care Teams Corn Husker Relationship Specialty Start Date End Date Conner Méndez MD [address] [place] [address] PCP - General Internal Medicine 12/08/18 documented as of this encounter
--- OUTSIDE RECORDS SUMMARY | 2024-11-23 11:07 | XMS_ITS | Encounter Summary ---
Author Organization [employer] Address [address] [facility] [address] [place] [address] Care Team Providers Care Sales Clerk Food Name Role Phone Conner Méndez MD Primary Care Provide r Encounter Details Date Type Department Care Team (Latest Contact Info) Description 08/01/2020 Abstract [facility] CONVERSIONS Dental, Provider, DDS Social History [...] EDT Office Visit [facility] MEDIC[facility] [address] [place], [place] [phone] Conner Méndez MD [address] [place] [address] documented as of this encounter Visit Diagnoses Not on filedocumented in this encounter Care Teams Sales Clerk Food Relationship Specialty Start Date End Date Conner Méndez MD [address] [place] [address] PCP - General Internal Medicine 12/08/18 documented as of this encounter
--- OUTSIDE RECORDS SUMMARY | 2024-11-23 11:07 | XMS_ITS | Encounter Summary ---
Author Organization [employer] Address [address] [facility] [address] [place] [address] Care Team Providers Care Milk Hauler Name Role Phone Conner Méndez MD Primary Care Provide r Reason for Visit * Reason Comments Med Refill Encounter Details Date Type Department Care Team (Late st Contact Info) Description 06/30/2023 Refill [facility] MEDICINE [address] [place], [place] [phone] Conner Méndez MD [address] [place], [place] [phone] Papanicolaou smear of vagina with atypical squamous [...] Description 12/21/2024 10:15 AM EDT Office Visit [facility] MEDICINE [address] [place], [place] [phone] Conner Méndez MD [address] [place] [address] documented as of this encounter Visit Diagnoses Diagnosis Papanicolaou smear of vagina with atypical squamous cells of undetermined significance (ASC-US) documented in this encounter Additional Health Concerns Assessment Noted Time PHQ-9 Depression Total Score: 0 09/20/19 23 9:04 AM EDT documented as of this encounter Care Teams Milk Hauler Relationship Specialty Start Date End Date Conner Méndez MD [address] [place] [address] PCP - General Internal Medicine 12/08/18 documented as of this encounter
--- OUTSIDE RECORDS SUMMARY | 2024-11-23 11:07 | XMS_ITS | Clinical Summary ---
Author Organization [facility] Address [address] [place] [address] Phone Care Team Providers Care Display Mechanic Name Role Phone Conner Smith MD Primary [...] Upcoming Encounters Date Type Department Care Team ([facility] Contact Info) Description 12/14/2024 10:15 AM EDT Office Visit Orthopedic Surgery [facility] [place] [facility] [address] [phone] Avelino Morocho, DPM [address] [address] Health Maintenance Due Date Last Done Comments Breast Cancer Screening 1960 Colorectal Cancer Screening: Colonoscopy 1960 DTaP,Tdap,and Td Vaccines (1 - Tdap) 02/13/1980 Cervical Cancer Screening: P ap Smear 1982 Pneumococcal Vaccine: 50+ Ye ars (1 of 1 - PCV) 2011 Zoster Vaccines (1 of 2) 2011 Depression Screening 02/25/2024 HIV Screening 09/28/2024 Hepatitis C Screening 09/28/2024 Social Influencers of Health Screening 09/28/2024 COVID-19 Vaccine (1 - 2023-2 5 season) 2024 Influenza Vaccine (#1) 2024 RSV Immunization Adult [...] topic Insurance MEDICAID - [place] Care Teams Display Mechanic Relationship Specialty Start Date End Date Conner Smith MD [address] [place] [address] PCP - General Internal Medicine 09/28/24
--- OUTSIDE RECORDS SUMMARY | 2024-11-23 11:07 | XMS_ITS | Encounter Summary ---
Author Organization [employer] Address [address] [facility] 7t [place] [address] Care Team Providers Care Cement Mason Name Role Phone Conner Méndez MD Primary Care Provide r Encounter Details Date Type Department Care Team (Latest Contact Info) Description 10/27/2018 Abstract [facility] CONVERSIONS Dental, Provider, DDS Social History [...] Description 12/21/2024 10:15 AM EDT Office Visit [facility] MEDICINE [address] [place] [address] Conner Méndez MD [address] [place] [address] documented as of this encounter Visit Diagnoses Not on filedocumented in this encounter Care Teams Cement Mason Relationship Specialty Start Date End Date Conner Méndez MD [address] [place] [address] PCP - General Internal Medicine 12/08/18 documented as of this encounter
--- OUTSIDE RECORDS SUMMARY | 2024-11-23 11:07 | XMS_ITS | Encounter Summary ---
Author Organization [employer] Address [address] [facility] [address] [place] [address] Care Team Providers Care Valve And Regulator Repairer Name Role Phone Conner Méndez MD Primary Care Provide r Reason for Visit * Reason Comments Med Change Request Encounter Details Date Type Department Care Team (Late st Contact Info) Description 09/19/2022 Refill [facility] MEDICINE [address] [place], [place] [phone] Conner Méndez MD [address] [place], [place] [phone] Papanicolaou smear of vagina with atypical squamous [...] AM EDT documented as of this encounter Functional Status * Over the past 2 weeks, how often have you been bothered by any of the following problems? Question Answer Date of Assessment Author Patient Health Questionnaire -2 Score 0 09/19/2022 9:04 AM EDT Anya Lopez [place] * Over the past 2 weeks, how often have you been bothered by any of the following problems? Question Answer Date of Assessment Author Little interest or pleasure in doing things Not at all 09/19/2022 9:04 AM EDT Anya Lopez [place] Feeling down, depressed, or hopeless Not at all 09/19/2022 9:04 AM EDT Anya Lopez [place] Trouble falling or staying asleep, or sleeping too much Not at all 09/19/2022 9:04 AM EDT Anya Lopze [place] Feeling tired or having tarik le energy Not at all 09/19/2022 9:04 AM EDT Anya Lopez [place] Poor appetite or overeating Not at all 09/19/2022 9: 04 AM EDT Anya Lopez [place] Feeling bad about yourself - or that you are a failure or have let yourself or your family down Not at all 09/19/2022 9:04 AM [place] Anya Lopez [place] Trouble concentrating on things, such as reading the newspaper or watching television Not at all 09/19/2022 9:04 AM EDT Anya Lopez MA Moving or speaking so slowly that other people could have noticed? Or the opposite - being so fidgety or restless that you have been moving around a lot more than usual. Not at all 09/19/2022 9:04 AM ADELAIDET Anya Lopez MA Thoughts that you would be better off or hurting yourself in some way Not at all 09/19/2022 9:04 AM ADELAIDET Anya Lopez MA Patient Health Questionnaire -9 Score 0 09/19/2022 9:04 AM EDT Anya Lopez [place] documented as of this encounter Plan of Treatment Upcoming Encounters Date Type Department Care Team (Late st Contact Info) Description 12/21/2024 10:15 AM EDT Office Visit [facility] MEDICINE [address] [place] [address] Conner Méndez MD [address] [place] [address] documented as of this encounter Visit Diagnoses Diagnosis Papanicolaou smear of vagina with atypical squamous cells of undetermined significance (ASC-US) documented in this encounter Additional Health Concerns Assessment Noted Time PHQ-9 Depression Total Score: 0 09/20/19 23 9:04 AM EDT documented as of this encounter Care Teams Valve And Regulator Repairer Relationship Specialty Start Date End Date Conner Méndez MD [address] [place] [address] PCP - General Internal Medicine 12/08/18 documented as of this encounter
--- OUTSIDE RECORDS SUMMARY | 2024-11-23 11:07 | XMS_ITS | Clinical Summary ---
Author Organization [employer] Address [address] [facility] [address] [place] [address] Care Team Providers Care News Analyst Name Role Phone Conner Méndez MD Primary Care Provide r Allergies No known active allergies Medications acetaminophen (Tylenol 8 Hour) 650 MG ER tablet TAKE 1 TABLET BY MOUTH BY MOUTH EVERY 6 HOURS NEEDED. SWALLOW WHOLE WITH WATER AND DO NOT BREAK, CRUSH, DISSOLVE OR CHEW 2 Active estradiol (Estrace) 0.1 MG/GM vaginal cream INSERT 1 GRAM VAGINALLY EVERY EVENING FOR 2 WKS THEN 1 GRAM VAGINALLY TWICE WEEKLY AFTERWARDS 2 Active Myrbetriq 25 MG 24 hr tablet Take 25 mg by mouth in the morning. 3 Active calcium carbonate (Os-Nehemias) 1250 (500 Ca) MG tabletIndications: Papanicolaou smear of vagina with atypical squamous cells of undetermined significance (ASC-US) Take 1 tab by mouth every day 90 tablet 3 3 Active [employer] Lubricant Eye Drops 0.5 % ophthalmic solutionIndication s:Dry eyes USE 3 TIMES A DAY TO AFFECTED EYE(S) 30 mL 11 4 Active Multiple Vitamin (Daily-Brenton Multivitamin) tabletIndications: Chronic neck pain Take 1 tablet by mouth in the morning. 90 tablet 1 5 Active cholecalciferol (D3-1000) 25 MCG (1000 UT) capsuleIndications :Chronic neck pain Take 1 capsule (25 mcg) by mouth in the morning. 90 capsule 1 5 Active propranolol (Inderal) 10 MG tabletIndications: Anxiety,Primary hypertension TAKE 1/2 TABLET BY MOUTH TWICE A DAY 90 tablet 1 5 Active levothyroxine (Synthroid, Levoxyl) 75 MCG tabletIndications: Acquired hypothyroidism TAKE 1 TABLET BY MOUTH EVERY DAY BEFORE BREAKFAST 90 tablet 1 5 Active meloxicam (Mobic) 15 MG tabletIndications: Chronic neck pain TAKE 1 TABLET (15 MG) BY MOUTH DAILY NEEDED FOR MODERATE PAIN 90 tablet 5 Active rOPINIRole (Requip) 0.25 MG tabletIndications: Primary insomnia TAKE 1 TABLET BY MOUTH EVERYDAY AT BEDTIME 90 tablet 5 Active traZODone (Desyrel) 100 MG tabletIndications: Primary insomnia TAKE 1 TABLET BY MOUTH AT BEDTIME 30 tablet 3 5 Active omeprazole (PriLOSEC) [address] capsuleIndications :Gastroesophageal reflux disease without esophagitis Take 1 capsule (40 mg) by mouth before breakfast. Do not crush or chew. 30 capsule 3 5 026 Active Active Problems Problem Noted Date Diagnosed Date Gastroesophageal reflux disease without esophagi tis 09/23/2024 Assessment & Plan (09/23/2024 10:55 AM EDT): Pt here with c/o GERD using Omeprazole 20 mg po daily with only partial results Plan: Increase Omeprazole to 40 mg po daily Pt c/o like food gets stuck on her throat. Plan: Barium Swallow, GI consult to consider EGD Pain around toenail, right foot 09/23/2024 Assessment & Plan (09/23/2024 11:01 AM EDT): Patient with thickened and painful toenail right great toe Plan: Podiatry evaluation Deviated nasal septum 05/11/2024 Assessment & Plan [...] past with knee injections, Was seen at [facility], they recommended surgical intervention per her report but if not to try PT. Previous visit she told me she wanted to be referred to a local legal financial specialist She was last seen at [facility] they recommended steroid injections or consideration of surgical intervention. She was seen last 09/2023 and received a steroid injection. Assessment & Plan (09/02/2023 10:54 AM EDT): Pt with chronic bilateral knee pain, has done well in the past with knee injections, Was seen at [facility], they recommended surgical intervention per her report but if not to try PT. Previous visit she told me she wanted to be referred to a local legal financial specialist She was last seen at [facility] they recommended steroid injections or consideration of surgical intervention. Pt wanted to go to PT Today she tells me she is ready to go back Assessment & Plan (02/04/2023 1:43 PM EST): Pt with chronic bilateral knee pain, has done well in the past with knee injections, Was seen at [facility], they recommended surgical intervention per her report but if not to try PT. Previous visit she told me she wanted to be referred to a local legal financial specialist She was last seen at [facility] they recommended steroid injections or consideration of surgical intervention. Pt wanted to go to PT Pt wants to wait until after her cataract surgery Preoperative examination 01/14/2023 Assessment & Plan (01/14/2023 1:45 PM EST): Patient is here for a preoperative exam Patient is scheduled for:Cataract Surgery Right Eye February 06, 2023 And Left Eye 03/01/2023 [facility] [address] [place] [address] EXT [phone] ([place]) Date of procedure: February [...] for a follow up Patient seen at [facility] 11/07/2023 where she presented with right sided [...] to go. She was seen 03/15/2024 at [facility] in [address] for Low back pain, they recommended evaluation at [facility] and consideration of steroid injections Last visit she told me she was not interested in injections or surgical interventions She is undergoing PT with good results, would like to continue Assessment & Plan (03/16/2024 1:14 PM EST): Telehealth Patient seen at [facility] 11/07/2023 where she presented with right sided [...] received PT. Previously pt was referred to [facility] for evaluation, they tried contacting pt [...] EST): Patient here after recently seen at [facility] 11/07/2023 where she presented with right sided [...] EST): Patient here after recently seen at [facility] where she presented with left sided back [...] EDT): Patient here after recently seen at [facility] where she presented with left sided back [...] 09/19 Chest discomfort 09/19/2022 Assessment & Plan (09/23/2024 11:28 AM EDT): Patient here for a follow up Patient with previous c/o recurrent chest discomfort. [...] done, she then proceeded to travel to [facility] before despite my recommendation not to travel until cardiac work up completed. She finally saw the mounter [facility] 05/03/2019 who recommended a stress test, an ECHO and a Holter monitor. Pt did not do any of the tests because back then she was concerned about going to the Hospital due to Covid-19. She subsequently brought me the results of a stress test and [place] both of which were normal Previously I explained to her that given that she was complaining of chest pain she needed to be re-evaluated. She had an appointment with Cardiology but she decided to re-schedule it for April., and subsequently missed Last visit again I discussed with her and her daughter the importance of seeing the mounter [facility] due to her c/o intermittent chest pain. She and her daughter tell me they have no recollection of any cardiology appointment. Last visit I placed another referral for cardiology. On 07/14/2024 she presented to the ER with c/o chest pain but she left without work up being completed. Of note she had a Tropinin and BNP that were normal ECG today within normal limits. She denies any current chest pain at the moment Plan: Pt already has an upcoming appointment with cardiology 10/11/2024. Encouraged her not to miss it Assessment & Plan (05/11/2024 11:44 AM EDT): [...] done, she then proceeded to travel to [facility] before despite my recommendation not to travel until cardiac work up completed. She finally saw the [facility]ounter [facility] 05/03/2019 who recommended a stress test, an ECHO and a Holter monitor. Pt did not do any of the tests because back then she was concerned about going to the Hospital due to Covid-19. She subsequently brought me the results of a stress test and ECHO [place] both of which were normal Last visit I explained to her that given that she was complaining of chest pain she needed to be re-evaluated. She had an appointment with Cardiology but today she tells me she decided to re-schedule it for April. Again I discussed with her and her daughter the importance of seeing the mounter clarinets due to her c/o intermittent chest pain. [...] work up completed. She finally saw the mounter [facility]inets 05/03/2019 who recommended a stress test, an ECHO and a Holter monitor. Pt did not do any of the tests because back then she was concerned about going to the Hospital due to Covid-19. She subsequently brought me the results of a stress test and ECHO [place] both of which were normal Last visit I explained to her that given that she was complaining of chest pain she needed to be re-evaluated. She had an appointment with Cardiology but today she tells me she decided to re-schedule it for April. Again I discussed with her and her daughter the importance of seeing the mounter clarinets due to her c/o intermittent chest pain. [...] done, she then proceeded to travel to [facility] before despite my recommendation not to travel until cardiac work up completed. She finally saw the mounter [facility] 05/03/2019 who recommended a stress test, an ECHO and a Holter monitor. Pt did not do any of the tests because back then she was concerned about going to the Hospital due to Covid-19. She subsequently brought me the results of a stress test and ECHO [place] both of which were normal Last visit I explained to her that given that she was complaining of chest pain she needed to be re-evaluated. She had an appointment with Cardiology but today she tells me she decided to re-schedule it for April. Again I discussed with her and her daughter the importance of seeing the mounter clarinets due to her c/o intermittent chest pain [...] done, she then proceeded to travel to [facility] before despite my recommendation not to travel until cardiac work up completed. She finally saw the mounter clarinets 05/03/2019 who recommended a stress test, an ECHO and a Holter monitor. Pt did not do any of the tests because back then she was concerned about going to the Hospital due to Covid-19. She subsequently brought me the results of a stress test and ECHO [place] both of which were normal Today [...] done, she then proceeded to travel to [facility] before despite my recommendation not to travel until cardiac work up completed. She finally saw the mounter clarinets 05/03/2019 who recommended a stress test, an ECHO and a Holter monitor. Pt did not do any of the tests because back then she was concerned about going to the Hospital due to Covid-19. She subsequently brought me the results of a stress test and E[place] both of which were normal Today [...] Propranolol as needed She was referred to [facility] but patient decided she was not interested [...] palpitations, dose lowered again with good results Preventative health care 02/25/2022 Assessment & Plan (09/23/2024 11:04 AM EDT): Mammogram: 11/20/2023 Normal. Needs a repeat Pap Smear: ABNL: 11/25/2017 + hpv Repeat 03/23/2019 NEGATIVE HPV NEGATIVE at [facility], repeat here 07/12/2020 Colonoscopy: 06/27/2020 Assessment & Plan (02/05/2024 1:26 PM EST): Mammogram: 11/20/2023 Normal. Pap Smear: ABNL: 11/25/2017 + hpv Repeat 03/23/2019 NEGATIVE HPV NEGATIVE at [facility], repeat here 07/12/2020 Colonoscopy: 06/27/2020 Assessment & Plan (09/02/2023 9:19 AM EDT): Mammogram: 10/08/2022 Normal. Will repeat Pap Smear: ABNL: 11/25/2017 + hpv Repeat 03/23/2019 NEGATIVE HPV NEGATIVE at [facility], repeat here 07/12/2020 Colonoscopy: 06/27/2020 Assessment & Plan (03/25/2023 11:24 AM EST): Mammogram: 10/08/2022 Normal Pap Smear: ABNL: 11/25/2017 + hpv Repeat 03/23/2019 NEGATIVE HPV NEGATIVE at [facility], repeat here 07/12/2020 Colonoscopy: 06/27/2020 Assessment & Plan (02/25/2022 2:39 PM EST): Mammogram: 10/02/2021 Normal Pap Smear: ABNL: 11/25/2017 + hpv Repeat 03/23/2019 NEGATIVE HPV NEGATIVE at [facility], repeat here 07/12/2020 Colonoscopy: 06/27/2020 Combined forms [...] her parotids negative. seen by ENT at [facility], 01/04/2021 ENT recommended No further follow up Chronic neck pain 06/15/2018 Assessment & Plan (09/23/2024 11:32 AM EDT): Pt here for a follow [...] had ordered an MRI of cervical spine, MRI done: 05/18/2024 Multilevel spondylosis, C3-4 to C6-7 more conspicuous at C5-6 resulting in central spinal canal and right neuroforamina and stenosis. No cord edema and or myelopathy. Pt referred back [facility], she tells me she was seen and received PT with good results Assessment & Plan (05/11/2024 3:40 PM EDT): [...] mg po daily Might consider referral to [facility] Dry eye syndrome of both eyes 06/08/2018 [...] (09/19/2022 5:42 PM EDT): Used to follow w/[facility] [place] We received a Pap smear report from 03/23/2019 that was NEGATIVE with HPV negative as well Pt was seen by Julisa Mcknight repeat Pap 08/07/2021 showed ASCUS HPV neg. Seen by Dr Oliverio Camarillo for colposcopy completed 09/07/2021 Assessment & Plan (02/25/2022 2:22 PM EST): Used to follow w/[facility] [place] We received a Pap smear report from 03/23/2019 that was NEGATIVE with HPV negative as well Pt was seen by Julisa Mcknight repeat Pap 08/07/2021 showed ASCUS HPV neg. Seen by Dr Oliverio Camarillo for colposcopy completed 09/07/2021 Primary osteoarthritis of right knee 03/09/2018 Assessment & Plan (09/23/2024 10:41 AM EDT): Pt with chronic bilateral knee pain, has done well in the past with knee injections, Was seen at [facility], they recommended surgical intervention per her report but if not to try PT. Previous visit she told me she wanted to be referred to a local legal financial specialist She was last seen at [facility] they recommended steroid injections or consideration of surgical intervention. Pt seeing a different orthopaedist now [facility] seen 07/14/2024 received steroid injection Assessment & Plan (02/04/2023 1:42 PM EST): Pt with chronic bilateral knee pain, has done well in the past with knee injections, Was seen at [facility], they recommended surgical intervention per her report but if not to try PT. Previous visit she told me she wanted to be referred to a local legal financial specialist She was last seen at [facility] they recommended steroid injections or consideration of surgical intervention. Pt wanted to go to PT, today she tells me she wanted to wait until after her cataract surgery Assessment & Plan (12/24/2022 10:16 AM EDT): Pt with chronic bilateral knee pain, has done well in the past with knee injections, Was seen at [facility], they recommended surgical intervention per her report but if not to try PT. Previous visit she told me she wanted to be referred to a local legal financial specialist She was last seen at [facility] they recommended steroid injections or consideration of surgical intervention. Pt wants to go to PT Assessment & Plan (02/25/2022 2:21 PM EST): Pt with chronic bilateral knee pain, has done well in the past with knee injections, Was seen at [facility], they recommended surgical intervention per her report but if not to try PT. Previous visit she told me she wanted to be referred to a local legal financial specialist She was referred to Dr Liao at [facility]. Encounters Date Type Department Care Team Description 11/21/2024 Refill [facility] [address] [place] [address] Conner Méndez MD Primary insomnia 09/23/2024 10:15 AM EDT Office Visit [facility] [address] [place] [address] Conner Méndez MD Chronic neck pain (Primary Dx); Primary osteoarthritis of right knee; Chest discomfort; Gastroesophageal reflux disease without esophagitis; Dysphagia, unspecified type; Pain around toenail, right foot; Preventative health care; Breast cancer screening by mammogram 09/23/2024 Travel 09/22/2024 Telephone [facility] [address] [place] [address] Conner Méndez MD CHART PREP 09/12/2024 Refill [facility] [address] [place] [address] Conner Méndez MD Primary insomnia 08/25/2024 Refill [facility] [address] [place] [address] Conner Méndez MD Primary insomnia from Last 3 Months Immunizations Immunization Administration Dates Next Due Influenza injectable quadriv [...] Answer Date Recorded Patient Health Questionnaire-9 Score 8 09/23/2024 Patient Health Questionnaire-9 Score 8 09/23/2024 Last PHQ-9: Questionnaire Data Not on file 0 09/23/2024 Housing Stability Answer Date Recorded What is [...] Answer Date Recorded Patient Health Questionnaire-2 Score 2 09/23/2024 Internet Access Answer Date Recorded Internet Access [...] Sign Reading Time Taken Comments Blood Pressure 102/72 09/23/2024 10:18 AM EDT Pulse 74 09/23/2024 10:18 AM EDT Temperature 36.8 C (98.3 F) 09/23/2024 10:18 AM EDT Respiratory Rate 16 09/23/2024 10:18 AM EDT Oxygen Saturation 97% 09/23/2024 10:18 AM EDT Inhaled Oxygen Concentration - - Weight 67.8 kg (149 lb 6.4 oz) 09/23/2024 10:18 AM EDT Height 147.3 cm (4' 10 ) 09/23/2024 10:18 AM EDT Body Mass Index 31.22 09/23/2024 10:18 AM EDT Plan of Treatment Upcoming Encounters Date Type Department Care Team (Late st Contact Info) Description 12/21/2024 10:15 AM EDT Office Visit [facility] [address] [place], [place] [phone] Conner Méndez MD [address] [place] [address] Health Maintenance Due Date Last Done Comments [...] Dental Prophylaxis 07/22/2022 01/21/2022, 0 08/01/2020, 10/27/2018 Cervical Cancer Screening 08/07/2024 HPV/Cotest 08/07/2024 08/07/2021, 06/24, 11/26/2016 Pap Smear 08/07/2024 08/07/2021, 07/12/2020 COVID-19 Vaccine ( season) 2024 03/04/2022, 10/08/2021, 06/21/2020, Additional history exists Influenza Vaccine (#1) 2024 , 12/24/2022, 01/15/2022, Additional history exists Mammogram 11/19/2024 11/20/2023, 09/24, 10/08/2022, Additional history exists Alcohol/Substance Use Screening 02/04/2025 02/05/2024 SDOH Screening 05/11/2025 05/11/2024 DTaP/Tdap/Td Vaccines (2 - Td or Tdap) 05/25/2025 05/26/2015 Depression Screening 09/23/2025 09/23/2024, 09/24/19 25 Disability Screening 09/23/2025 09/23/2024 Tobacco Screening 09/23/2025 09/23/2024 Lipid Panel 09/02/2028 09/03/2023 Colonoscopy 06/27/2030 06/27/2020, 06/27/2020 Colorectal Cancer Screening 06/27/2030 Meningococcal Vaccine Aged Out 03/17/2019 No jane natalie eligible based on patient's age to complete this topic HIB Vaccines Aged Out No longer eligi [...] Procedure Name Priority Date/Time Associated Diagnosis Comments ECG 12-LEAD Routine 09/28/2024 5:02 PM EDT Chest discomfort BI MAMMOGRAM SCREENING TOMOSYNTHESIS BILATERAL Routine 11/20/2023 [...] Recently Relevant to Health Maintenance Results * ECG 12 lead (09/28/2024 5:02 PM EDT) Narrative Conner Méndez MD - 09/28/2024 5:02 PM EDT NSR, no acute st t changes us Conner Guerin MD ECG ORDERABLES Final Result * BI Mammogram Screening Tomosynthesis Bilateral (11/20/2023 4:20 PM EDT) Anatomical Region Laterality Modality Breast Bilateral Mammography 11/20/2023 4:20 PM EDT Narrative 12/02/2023 5:55 PM EDT [facility] [address] [place] [address] Dr. Luo, MARCELA [address] Mammography Report Signed Patient: Rosemary Mcgovern MR#: [id number] 5 : 1960 Acct:[id number] Age/Sex: 63 / F ADM Date: 11/20/23 Loc: [facility] Attending Dr: Conner Smith MD Ordering Physician: Conner Smith MD Resu lts: 1Negative Date of Service: 11/20/23 Follow Up: 1 Year From Orig inal Mammogram Procedure(s): MM tomosynthesis screening BI Accession Number(s): [id number] cc: Conner Smith MD EXAMINATION: MM SCREENING [...] 12/02/23 1752 DD/ 1620 TD/TT: 11/20/23 1631 Operations Research Scientist: Procedure Note Donotuseinterpreter, Image - 12/02/2023 [facility] [address] Luo, [place]ARC[place] [address] Mammography Report Signed Patient: Iain Mcgovern#: [id number] 5 : 1Acct:[id number] Age/Sex: 63 / FADM Date: 11/20/23 Loc: HO.MAMMO Attending Dr: Conner Smith MD Ordering Physician: Conner Smith MDResu lts: 1Negative Date of Service: 11/20/23Follow Up: 1 Year From Orig inal Mammogram Procedure(s): MM tomosynthesis screening BI Accession Number(s): [id number] cc: Conner Smith MD EXAMINATION: MM SCREENING [...] Ericka Guerrier DO 12/02/2023 05:52 PM EDT RP Dictated By: Ericka Guerrier DO Signed By: <Electronically signed by Ericka Guerrier DO in OV> 12/02/23 1752 DD/ 1620 TD/TT: 11/20/23 1631 Operations Research Scientist: us Conner Guerin MD IMG BI PROCEDURES Theron shahrzad Result - Final * Lipid Panel, Standard (09/03/2023 10:21 AM EDT) Triglycerides 65 <150 mg/dL [facility] Comment:Desirable Triglyceri de: less than 150 mg/dLBorderline High Triglyceride 150-199 mg/dLHigh Triglyceride: 200-499 mg/dLVery High Triglyceride: greater than or equal to 5OO mg/dL Cholesterol 176 <200 mg/dL [facility] Comment:Desirable Cholestero l: less than 200 mg/dLBorderline High Cholesterol: 200-239 mg/dLHigh Cholesterol: greater than 239 mg/dL LDL Cholesterol Calculated 98 <100 mg/dL [facility] Comment:Desirable LDL: less than 100 mg/dLNear Optimal/Above Optimal LDL: 110- 129 mg/dLBorderline High LDL: 130-159 mg/dLHigh LDL: 160-189 mg/dLVery High LDL: greater than or equal to 190 mg/dL HDL Cholesterol 65 >40 mg/dL [facility] Comment:Desirable HDL: great er than 40 mg/dL Note: This HDL assay may give artificially low results in patients with liver disease. Blood Venous blood specimen / Unknown 09/03/2023 10:21 AM EDT 09/03/2023 12:58 PM EDT us Conner Guerin MD LAB BLOOD ORDERABLES Final Result [facility] [address] [place] [phone] * (ABNORMAL) THINPREP TIS PAP AND HPV mRNA E6/E7 WITH REFLEX TO HPV 16,18/45 (08/07/2021 1:17 PM EDT) Clinical Information: [facility] COMMENT SEE COMMENT [facility] Comment: EXPLANATORY NOTE: The Pap is a screening test for cervical cancer. It is not a diagnostic test and is subject to false negative and false positive results. It is most reliable when a satisfactory sample, regularly obtained, is submitted with relevant clinical findings and history, and when the Pap result is evaluated along with historic and current clinical information. COMMENT: This Pap test has been evaluated with computer assisted technology. [facility] Car Carder : SEE COMMENT [facility] Comment: MAORAL Rincon(ASCP) CT screening location: [place] [address] General Categorization: EPITHELIAL CELL ABNORMALITY(A) [facility] HPV nRNA E6/E7 Not Detected Not Detected [facility] Comment: Methodology: Custom Car Builder-Mediated Amplification This assay detects E6/E7 viral messenger RNA (mRNA) from 14 high-risk HPV types (16,18,31,33,35,39,45,51,52,56,58,59,66,68). Cervical sources are required for HPV testing. If a vaginal source from a patient who has had a total hysterectomy with removal of cervix was submitted, please contact the testing laboratory for alternative testing options. For additional information, please refer to http://education.RevoDeals/faq/MNF030s4 (This link if provided for information/ educational purposes only.) Interpretation/R esult: SEE COMMENT(A) [facility] Comment: Atypical Squamous Cells of Undetermined Significance (ASC-US) Atrophic pattern; predominantly parabasal cells LMP: [facility] PATHOLOGIST: SEE COMMENT [facility] Comment: Myrna Ng MD, PhD, Board Certified in Anatomic and Clinical Pathology (electronic signature) Consulting Pathologist [facility] [address] [place] [address] Prev. BX: 2018 LEEP: EMILIANO 3 [facility] Prev. PAP: NIL/NEG [facility] SOURCE: None given [facility] Statement Of Adequacy: SATISFACTORY FOR EVALUATION [facility] 08/07/2021 1:17 PM EDT Julisa Mcknight CNM LAB PATHOLOGY ORDERABLES Final Result [facility] [address] * Colonoscopy (06/27/2020) Colonoscopy Normal Normal 06/27/2020 Narrative Kady Linn - 06/27/2020 10:58 AM EDT Recommended 10 year follow up ( see scanned notes) Historical Provider HEALTH MAINTENANCE Edited Result - Final from Last 3 Months or Most Recently Relevant to Health Maintenance Insurance [employer] [employer] [place] ADULT Care Teams News Analyst Relationship Specialty Start Date End Date Conner Méndez MD [address] [place] [phone] PCP - General Internal Medicine 12/08/18
--- OUTSIDE RECORDS SUMMARY | 2024-11-23 11:07 | XMS_ITS | Clinical Summary ---
Author Organization [facility] Address [address] [place] [address] Care Team Providers Care Rail Equipment Operator Name Role Phone Conner Smith Primary Care [...] / Fit Test 1960 HIV Screening 1960 Sigmoidoscopy 1960 Pneumococcal Vaccine: 50+ Years (1 of 1 - PCV) 2011 Zoster Vaccines (1 of 2) 2011 Alcohol/Substance Use Screening 02/25/2024 COVID-19 Vaccine (3 - season) 2024 06/21/2020, 05/31/2020 Influenza Vaccine (#1) 2024 , 12/22/2019, 12/08/2018, Additional history exists DTaP,Tdap,and Td Vaccines (2 - Td or Tdap) 05/25/2025 05/26/2015 Colon Cancer Screening 06/27/2030 Colonoscopy 06/27/2030 06/27/2020, 06/27/2020 RSV Vaccine (60+ years old and patients) (1 - 1-dose 75+ series) 02/13/2036 Cervical Cancer Screening Discontinued Pap Smear Discontinued 03/23/2019, 10/03/2017, 02/06/2017 HPV and Pap Smear Discontinued Hepatitis B Vaccines Aged Out No long er eligible based on patient's age to complete this topic Procedures * Due to [place] state law, this organization might not be sharing negative HIV tests. Procedure Name Priority Date/Time Associated Diagnosis Comments COLONOSCOPY 06/27/2020 PAP Routine 03/23/2019 2:47 PM EST Atypical squamous cells of undetermined significance on cytologic smear of cervix (ASC-US) from Last 3 Months or Most Recently Relevant to Health Maintenance Results * Due to [place] [employer] law, this organization might not be sharing negative HIV tests. * COLONOSCOPY (06/27/2020) Narrative Procedure Note Charli Jaramillo MD - 06/27/2020 2:09 PM EDT [facility] Patient Name: Rosemary Mcgovern Procedure Date: 06/27/2020 2:09 PM Date of : 1960 Age: 60 Room: [place] [address] Gender: Female Note Status: Finalized Attending MD: [...] PM EST) Specimen Adequacy Satisfactory for evaluation [facility] MANUAL 03/31/2019 1:56 PM EST [facility] Pathologist Cytology Interpretation Negative for intraepithelial lesion or malignancy. [facility] MANUAL 03/31/2019 1:56 PM EST [facility] at 1356 EST Comment:This is the result o f a morphological screening test with an inherent possibility of a false negative interpretation. Croze Cutter Statement This Pap test was examined by the Th[facility] Imaging System, [employer], [place], [place]. This Pap test was examined in accordance with the [facility] Cytopathology Laboratory written policy, which incorporates all CLIA mandates. Screening guidelines can be found in Am J Clin Pathol 2012;137:516-542. We endorse the practice guidelines developed by ASCCP and published in the Journal Lower Genital Tract Disease 17(5):S1-S27 (2013). [facility] MANUAL 03/31/2019 1:56 PM EST [facility] Clinical History ascus hpv + [facility] MANUAL 03/31/2019 1:56 PM EST [facility] HPV High Risk DNA Subtypes NEGATIVE [facility] MANUAL 03/31/2019 1:56 PM EST [facility] Test Description Specimens were tested for high risk HPV using the FDA approved Digene Hybrid Capture II kit, in the Diagnostic Molecular Oncology Lab at [facility]. This test can detect HPV high risk [...] abnormality. We endorse the recommendations of the [place] Society for Colposcopy and Cervical Pathology for management of pap test results, available at www.asccp.org. ASCCP guidelines also recommend HPV 16/18 genotyping in patients over the age of 30 who have had positive high risk HPV testing, but have a negative morphologic Pap test: (http://www.asccp .org/consensus.sh tml). [facility] MANUAL 03/31/2019 1:56 PM EST [facility] [employer] [facility] ASR Disclaimer The performance characteristics of [...] to perform high complexity clinical laboratory testing. [facility] MANUAL 03/31/2019 1:56 PM EST [facility] Resulting Agency Case was signed out at [facility], Department of Pathology, [employer] CLIA [id number] [facility] MANUAL 03/31/2019 1:56 PM EST [facility] Report Header Gynecologic Cytology Report Case: [id number] Authorizing Provider: Eva Mcclain MD Collected: 03/23/2019 1447 Ordering Location: [facility] Received: 03/23/[address] [place] [address] Obstetrics and Gynecology First Screen: Darrel Jones Rescreen: Augustin Moreland Specimen: Screening ThinPrep Pap, Cervix/Endocervix 03/31/2019 1:56 PM EST [facility] Brushing Cervix uteri structure / Unknown Non-Blood Collection / Unknown 03/23/2019 2:47 PM EST 03/23/2019 4:21 PM EST us Eva Mcclain MD LAB PATHOLOGY/CYTOLOGY ORDER HAYDEE Final Result [facility] [address] [place] [address], from Last 3 Months or Most Recently Relevant to Health Maintenance Insurance [employer] MARCELA [id number] Care Teams Rail Equipment Operator Relationship Specialty Start Date End Date Conner Smith [address] [place] [phone] PCP - General Internal Medicine 09/15/19
--- OUTSIDE RECORDS SUMMARY | 2024-11-23 11:07 | XMS_ITS | Encounter Summary ---
Author Organization [facility] Address [address] [facility] [address]t [place] [address] Care Team Providers Care Guard Range Name Role Phone Conner Méndez MD Primary Care Provide r Encounter Details Date Type Department Care Team (Late Contact Info) Description 06/27/2022 Abstract [facility] MEDICINE [address] [place] [address] [phone] Conner Méndez MD [address] [place] [address] [phone] Social History Tobacco Use Types Packs/Day Years [...] Description 12/21/2024 10:15 AM EDT Office Visit [facility] MEDICINE [address] [place] [address] [phone] Conner Méndez MD [address] [place], [place] [phone] documented as of this encounter Procedures Procedure [...] on filedocumented in this encounter Care Teams Guard Range Relationship Specialty Start Date End Date Conner Méndez MD [address] [place] [phone] PCP - General Internal Medicine 12/08/18 documented as of this encounter
--- OUTSIDE RECORDS SUMMARY | 2024-11-23 11:07 | XMS_ITS | Encounter Summary ---
Author Organization [employer] [facility] Address [address] [facility] [address]t [place] [address] Care Team Providers Care Health And Safety Manager Name Role Phone Conner Méndez MD Primary Care Provide r Reason for Visit * Reason Comments Med Refill Encounter Details Date Type Department Care Team (Late st Contact Info) Description 06/30/2023 Refill [facility] MEDICINE [address] [place], [place] [phone] Bianka Salazar DO [address] [place], [place] [phone] Chronic neck pain Social History Tobacco Use [...] Description 12/21/2024 10:15 AM EDT Office Visit [facility] [address] [place] [address] Conner Méndez MD [address] [place] [address] documented as of this encounter Visit Diagnoses Diagnosis Chronic neck pain Cervicalgia documented in this encounter Additional Health Concerns Assessment Noted Time PHQ-9 Depression Total Score: 0 09/20/19 23 9:04 AM EDT documented as of this encounter Care Teams Health And Safety Manager Relationship Specialty Start Date End Date Conner Méndez MD [address] [place] [address] PCP - General Internal Medicine 12/08/18 documented as of this encounter
--- OUTSIDE RECORDS SUMMARY | 2024-11-23 11:07 | XMS_ITS | Encounter Summary ---
Author Organization [employer] Address [address] [facility] [address] [place] [address] Care Team Providers Care Car Varnisher Name Role Phone Conner Méndez MD Primary Care Provide r Reason for Visit * Reason Comments Med Refill Encounter Details Date Type Department Care Team (Late st Contact Info) Description 10/03/2023 Refill [facility]INE [address] [place], [place] [phone] Conner Méndez MD [address] [place], [place] [phone] Primary insomnia Social History Tobacco Use Types [...] Description 12/21/2024 10:15 AM EDT Office Visit [facility]INE [address] [place] [address] Conner Méndez MD [address] [place] [address] documented as of this encounter Visit Diagnoses Diagnosis Primary insomnia Persistent disorder of initiating or maintaining sleep documented in this encounter Additional Health Concerns Assessment Noted Time PHQ-9 Depression Total Score: 4 09/02/19 24 10:34 AM EDT documented as of this encounter Care Teams Car Varnisher Relationship Specialty Start Date End Date Conner Méndez MD [address] [place] [address] PCP - General Internal Medicine 12/08/18 documented as of this encounter
--- OUTSIDE RECORDS SUMMARY | 2024-11-23 11:07 | XMS_ITS | Encounter Summary ---
Author Organization [facility] [facility] Address [address] [facility] [address] [place] [address] Care Team Providers Care Hired Help Name Role Phone Conner Méndez MD Primary Care Provide r Reason for Visit * Reason Comments Med Refill Encounter Details Date Type Department Care Team (Late st Contact Info) Description 11/21/2024 Refill [facility] MED[facility]INE [address] [place], [place] [phone] Conner Méndez MD [address] [place], [place] [phone] Primary insomnia Social History Tobacco Use Types [...] Description 12/21/2024 10:15 AM EDT Office Visit [facility] MEDICINE [address] [place] [address] Conner Méndez MD [address] [place] [address] documented as of this encounter Visit Diagnoses Diagnosis Primary insomnia Persistent disorder of initiating or maintaining sleep documented in this encounter Additional Health Concerns Assessment Noted Time PHQ-9 Depression Total Score: 8 09/24/19 25 10:19 AM EDT documented as of this encounter Care Teams Hired Help Relationship Specialty Start Date End Date Conner Méndez MD [address] [place] [address] PCP - General Internal Medicine 12/08/18 documented as of this encounter
== END 2024-11-23 10:04 | disposition home or self-care (01) ==
LOC: HO.MAMMO 10:03
PROVIDERS: PCP Internal Medicine; Visit Provider Internal Medicine
DX: Z13.89 Encounter for screening for other disorder (principal)

== ENCOUNTER → 2024-12-07 07:55 | Outpatient (REF) | payer MEDICAID, SELFPAY ==
--- NOTE | ~2024-12-07 | NM_ITS ---
Lexiscan Myocardial perfusion study Indication: Chest pain Technique: The patient was brought in for a Lexiscan perfusion study on 12/07/2024 and was injected 0.4 mg of Lexiscan intravenously. Within a minute of this injection 25 mCi of sestamibi was given intravenously. Images were obtained using the SPECT gamma camera interlaced with the gating device. Images were obtained in supine position. Resting perfusion study was performed on 12/09/2024. Patient was administered 25 mCi of sestamibi intravenously at rest. Images were then obtained in supine position. Total DLP 107 mGy-cm. Images were processed with the software and compared side to side in short axis, horizontal long axis and vertical long axis views. Findings: Raw aquisition reviewed. The stress perfusion study showed no significant perfusion abnormality. Both uncorrected as well as CT attenuation corrected images were reviewed. The gated study shows normal LV systolic function with calculated LVEF of 62%, but visually higher. LV cavity is normal in size. The gated study shows normal wall thickening and contraction of segments. Resting study shows mildly decreased tracer uptake in the mid to distal inferolateral wall. Could be artifactual finding. Gating at rest reveals normal wall motion with ejection fraction at 56%. The findings are consistent with no clear reversible or fixed perfusion abnormality. NM/NM jackeline perf SPECT rest & str Impression: 1. Myocardial perfusion imaging study shows probably normal myocardial perfusion. 2. Gated LVEF is 62% during stress and 56% during rest; visually higher. 3. Transient ischemic dilatation not present. EKG component of the test reported separately. Electronically signed by: Tony Fu MD 12/09/2024 04:23 PM EDT
--- NOTE | 2024-12-07 07:58 | CA_ITS ---
Acquisition Time: 2024-12-07 08:19:55 Total Exercise Time: 00:02:00 Test Indications: CHEST PAIN Medications: Protocol: LEXISCAN Max HR: 114 BPM 72% of Pred: 157 BPM Max BP: 116/70 mmHG Max Work Load: 1.0 METS Pharmacological stress test with Lexiscan injection, while sitting and kicking her legs, without anginal symptoms, without arrythmia, with normotensive response to injection, with nondiagnostic EKG for ischemia. Nuclear images pending. Test reviewed with Dr Fu. Referred By: Tommy Wesley Electronically Signed By: REGLA CRISOSTOMO
--- NOTE | 2024-12-07 07:58 | CA_ITS ---
Transthoracic Echocardiogram Patient (Last, First, Middle): Rosemary Mcgovern, Gender: F Date of : 1960 Age: 64 Procedure Date: 12/07/2024 Procedure Type: Transthoracic Echocardiogram Location: OP Height: 147.32 cm Weight: 67.59 kg BSA: 1.61 m2 Heart Rate: bpm BP: 120 / 80 mmHg Java Lead Architect: CARMEN Referring MD: Tommy Wesley MD Symptoms: R07.89 - Other chest pain Study Quality: Adequate ECG Rhythm: Sinus Conclusions: - The left ventricular systolic function is hyperdynamic. The visually estimated ejection fraction is >70%. - No obvious valvular pathology seen on this study. Findings Left Ventricle Normal left ventricular cavity size. The left ventricular systolic function is hyperdynamic. The visually estimated ejection fraction is >70%. There is no evidence of regional wall motion abnormalities. Diastolic function is normal for age. There is mild septal and mild basal asymmetric hypertrophy. Right Ventricle Normal right ventricular cavity size and systolic function. Atria Both atria are normal in size. Aortic Valve There is a normal trileaflet aortic valve. There is no aortic valve stenosis. There is no aortic valve regurgitation. Mitral Valve The mitral valve appears normal. There is no mitral valve regurgitation. There is no mitral valve stenosis. Pulmonic Valve There is trace pulmonic valve regurgitation. Tricuspid Valve There is mild tricuspid valve regurgitation. There is no evidence of pulmonary hypertension. Great Vessels The asc aorta is normal in size. Venous The inferior vena cava is normal in size and collapses greater than 50% with inspiration. Pericardium/Pleural There is no evidence of pericardial effusion. Prior Study Comparison No prior study available for comparison. Recommendations, Care & Conclusions No obvious valvular pathology seen on this study. Measurements 2D Linear Measurements IVSd: 0.60 0.6-0.9/0.6-1.0 cm LVIDd: 4.53 3.9-5.3/4.2-5.9 cm LVIDd Index: 2.81 2.4-3.2/2.2-3.1 cm/m2 LVIDs: 2.76 2.0-3.6 cm LVPWd: 0.88 0.7-1.1 cm LA Diam: 2.70 2.7-3.8/3.0-4.0 cm LAIDs Index: 1.68 1.5-2.3 cm/m2 LV Mass: 128.75 67-162/88-224 g LV Mass Index: 79.97 43-95/49-115 g/m2 LVOT Diam: 1.90 3.0+(-)1.3 cm 2D Systolic Function EF 4C: 69.80 >55% EF 2C: 72.40 >55% EF BiP: 71.10 >55% Mitral Valve MV Pk E: 0.87 MV PK A: 0.86 MV Decel Time: 171.00 E/A: 1.00 E'Lateral: 11.20 E'Medial: 5.77 E/E' Med: 15.10 E/E' Lat: 7.80 PHT: 50.00 MVA PHT: 4.40 Decel Coryell: 5.08 Aortic Valve AoV Pk Onel: 1.48 AoV Mn Onel: 1.00 AoV VTI: 0.34 AoV Pk Grad: 9.00 Aov Mn Grad: 5.00 WARREN Cont.VTI: 1.96 LVOT LVOT Pk Onel: 1.14 LVOT Mn Onel: 0.71 LVOT VTI: 0.23 LVOT Pk Grad: 5.00 LVOT Mn Grad: 2.00 LVOT Diam: 1.90 LVOT Area: 2.84 Diastolic Function MV Pk E: 0.87 MV Pk A: 0.86 E/A: 1.00 E'Medial: 5.77 E/E' Med: 15.10 E' Laterial: 11.20 E/E' Lat: 7.80 Right Ventricle TAPSE (mm): 21.90 TVS' Onel: 12.10 Tricuspid Valve TR Pk Onel: 2.15 TR Pk Grad: 18.00 RA Press: 3.00 RVSP: 21.00 Great Vessels Aorta Sinus of Valsalva: 3.27 2.0-3.[address] Ridge: 2.66 1.7-3.4 cm Ao Asc: 3.20 2.1-3.4 cm Ao Arch: 2.80 Pulmonary Veins Pulm Vein S/D 1.00 Updated in Other Vendor System with Status of Final Tony Fu MD electronically signed on 12/07/2024 12:44:05 PM with status of Final
--- OUTSIDE RECORDS SUMMARY | 2024-12-07 07:58 | XMS_ITS | Clinical Summary ---
Author Organization [employer] Address [address] [facility] 7[address] [place] [address] Care Team Providers Care Service Representative Name Role Phone Conner Méndez MD Primary [...] VAGINALLY TWICE WEEKLY AFTERWARDS 01/30/20 22 Active Myrbetriq 25 MG 24 hr tablet [...] EYE(S) 30 mL 11 03/25/19 24 Active Multiple Vitamin (Daily-B[place] Multivitamin) tabletIndications :Chronic neck pain Take 1 tablet by mouth in the morning. 90 tablet 1 03/16/19 25 Active cholecalciferol (D3-1000) 25 MCG (1000 UT) capsuleIndication s:Chronic neck pain Take 1 capsule (25 mcg) by mouth in the morning. 90 capsule 1 03/16/19 25 Active propranolol (Inderal) 10 MG tabletIndications :Anxiety,Primary hypertension TAKE 1/2 TABLET BY MOUTH TWICE A DAY 90 tablet 1 04/28/19 25 Active levothyroxine (Synthroid, Levoxyl) 75 MCG tabletIndications :Acquired hypothyroidism TAKE 1 TABLET BY MOUTH EVERY DAY BEFORE BREAKFAST 90 tablet 1 08/11/19 25 Active traZODone (Desyrel) 100 MG tabletIndications :Primary insomnia TAKE 1 TABLET BY MOUTH AT BEDTIME 30 tablet 3 09/15/19 25 Active omeprazole (PriLOSEC) [address] capsuleIndication s:Gastroesophagea l reflux disease without esophagitis Take 1 capsule (40 mg) by mouth before breakfast. Do not crush or chew. 30 capsule 3 09/24/19 25 2025 Active rOPINIRole (Requip) 0.25 MG tabletIndications :Primary insomnia TAKE 1 TABLET BY MOUTH EVERYDAY AT BEDTIME 90 tablet 11/24/19 25 Active meloxicam (Mobic) 15 MG tabletIndications :Chronic neck pain TAKE 1 TABLET (15 MG) BY MOUTH DAILY NEEDED FOR MODERATE PAIN 90 tablet 12/03/19 25 Active meloxicam (Mobic) 15 MG tabletIndications :Chronic neck pain TAKE 1 TABLET (15 MG) BY MOUTH DAILY NEEDED FOR MODERATE PAIN 90 tablet 08/11/19 25 2024 Discontinued rOPINIRole (Requip) 0.25 MG tabletIndications :Primary insomnia TAKE 1 TABLET BY MOUTH EVERYDAY AT BEDTIME 90 tablet 08/27/19 25 2024 Discontinued Active Problems Problem Noted Date [...] past with knee injections, Was seen at [facility], they recommended surgical intervention per her report but if not to try PT. Previous visit she told me she wanted to be referred to a local range management specialist She was last seen at [facility] they recommended steroid injections or consideration of surgical intervention. She was seen last 09/2023 and received a steroid injection. Assessment & Plan (09/02/2023 10:54 AM EDT): Pt with chronic bilateral knee pain, has done well in the past with knee injections, Was seen at [facility], they recommended surgical intervention per her report but if not to try PT. Previous visit she told me she wanted to be referred to a local range management specialist She was last seen at [facility] they recommended steroid injections or consideration of surgical intervention. Pt wanted to go to PT Today she tells me she is ready to go back Assessment & Plan (02/04/2023 1:43 PM EST): Pt with chronic bilateral knee pain, has done well in the past with knee injections, Was seen at [facility], they recommended surgical intervention per her report but if not to try PT. Previous visit she told me she wanted to be referred to a local range management specialist She was last seen at [facility] they recommended steroid injections or consideration of surgical intervention. Pt wanted to go to PT Pt wants to wait until after her cataract surgery Preoperative examination 01/14/2023 Assessment & Plan (01/14/2023 1:45 PM EST): Patient is here for a preoperative exam Patient is scheduled for:Cataract Surgery Right Eye February 06, 2023 And Left Eye 03/01/2023 [facility] [address] [place], [place] [id number] EXT [phone] ([place]) Date of procedure: February [...] for a follow up Patient seen at [facility] 11/07/2023 where she presented with right sided [...] to go. She was seen 03/15/2024 at [facility] in [place] for Low back pain, they recommended evaluation at [facility] for PT and consideration of steroid injections Last visit she told me she was not interested in injections or surgical interventions She is undergoing PT with good results, would like to continue Assessment & Plan (03/16/2024 1:14 PM EST): Telehealth Patient seen at [facility] 11/07/2023 where she presented with right sided [...] received PT. Previously pt was referred to [facility] for evaluation, they tried contacting pt [...] EST): Patient here after recently seen at [facility] 11/07/2023 where she presented with right sided [...] EST): Patient here after recently seen at [facility] where she presented with left sided back [...] EDT): Patient here after recently seen at [facility] where she presented with left sided back [...] done, she then proceeded to travel to [facility] before despite my recommendation not to travel until cardiac work up completed. She finally saw the cook restaurant 05/03/2019 who recommended a stress test, an ECHO and a Holter monitor. Pt did not do any of the tests because back then she was concerned about going to the Hospital due to Covid-19. She subsequently brought me the results of a stress test and E[place] both of which were normal Previously I explained to her that given that she was complaining of chest pain she needed to be re-evaluated. She had an appointment with Cardiology but she decided to re-schedule it for April., and subsequently missed Last visit again I discussed with her and her daughter the importance of seeing the cook restaurant due to her c/o intermittent chest pain. [...] done, she then proceeded to travel to [facility] before despite my recommendation not to travel until cardiac work up completed. She finally saw the cook restaurant 05/03/2019 who recommended a stress test, an ECHO and a Holter monitor. Pt did not do any of the tests because back then she was concerned about going to the Hospital due to Covid-19. She subsequently brought me the results of a stress test and ECHO [place] were [place] both of which were normal Last visit I explained to her that given that she was complaining of chest pain she needed to be re-evaluated. She had an appointment with Cardiology but today she tells me she decided to re-schedule it for April. Again I discussed with her and her daughter the importance of seeing the cook restaurant due to her c/o intermittent chest pain. [...] done, she then proceeded to travel to [facility] before despite my recommendation not to travel until cardiac work up completed. She finally saw the cook restaurant 05/03/2019 who recommended a stress test, an ECHO and a Holter monitor. Pt did not do any of the tests because back then she was concerned about going to the Hospital due to Covid-19. She subsequently brought me the results of a stress test and ECHO [place] were [place] both of which were normal Last visit I explained to her that given that she was complaining of chest pain she needed to be re-evaluated. She had an appointment with Cardiology but today she tells me she decided to re-schedule it for April. Again I discussed with her and her daughter the importance of seeing the cook restaurant due to her c/o intermittent chest pain. [...] work up completed. She finally saw the cook restaurant 05/03/2019 who recommended a stress test, an ECHO and a Holter monitor. Pt did not do any of the tests because back then she was concerned about going to the Hospital due to Covid-19. She subsequently brought me the results of a stress test and ECHO [place] were [place] both of which were normal Last visit I explained to her that given that she was complaining of chest pain she needed to be re-evaluated. She had an appointment with Cardiology but today she tells me she decided to re-schedule it for April. Again I discussed with her and her daughter the importance of seeing the cook restaurant due to her c/o intermittent chest pain [...] done, she then proceeded to travel to [facility] before despite my recommendation not to travel until cardiac work up completed. She finally saw the cook restaurant 05/03/2019 who recommended a stress test, an ECHO and a Holter monitor. Pt did not do any of the tests because back then she was concerned about going to the Hospital due to Covid-19. She subsequently brought me the results of a stress test and ECHO [place] were [place] both of which were normal Today [...] she then proceeded to travel to [facility] before despite my recommendation not to travel until cardiac work up completed. She finally saw the cook restaurant 05/03/2019 who recommended a stress test, an ECHO and a Holter monitor. Pt did not do any of the tests because back then she was concerned about going to the Hospital due to Covid-19. She subsequently brought me the results of a stress test and ECHO [place] were [place] both of which were normal Today I have explained to her that given that she is complaining of chest pain she needs to be evaluated to do an EKG and have a physical examination. I have asked her to come in to our [facility] or to present herself to her nearest ER. She told me she would come to our [facility] on Friday I explained to her that [...] Propranolol as needed She was referred to [facility] but patient decided she was not interested [...] palpitations, dose lowered again with good results [facility] care 02/25/2022 Assessment & Plan (09/23/2024 11:04 AM EDT): Mammogram: 11/20/2023 Normal. Needs a repeat Pap Smear: ABNL: 11/25/2017 + hpv Repeat 03/23/2019 NEGATIVE HPV NEGATIVE at [facility], repeat here 07/12/2020 Colonoscopy: 06/27/2020 Assessment & Plan (02/05/2024 1:26 PM EST): Mammogram: 11/20/2023 Normal. Pap Smear: ABNL: 11/25/2017 + hpv Repeat 03/23/2019 NEGATIVE HPV NEGATIVE at [facility], repeat here 07/12/2020 Colonoscopy: 06/27/2020 Assessment & Plan (09/02/2023 9:19 AM EDT): Mammogram: 10/08/2022 Normal. Will repeat Pap Smear: ABNL: 11/25/2017 + hpv Repeat 03/23/2019 NEGATIVE HPV NEGATIVE at [facility], repeat here 07/12/2020 Colonoscopy: 06/27/2020 Assessment & Plan (03/25/2023 11:24 AM EST): Mammogram: 10/08/2022 Normal Pap Smear: ABNL: 11/25/2017 + hpv Repeat 03/23/2019 NEGATIVE HPV NEGATIVE at [facility], repeat here 07/12/2020 Colonoscopy: 06/27/2020 Assessment & Plan (02/25/2022 2:39 PM EST): Mammogram: 10/02/2021 Normal Pap Smear: ABNL: 11/25/2017 + hpv Repeat 03/23/2019 NEGATIVE HPV NEGATIVE at [facility], repeat here 07/12/2020 Colonoscopy: 06/27/2020 Combined forms [...] her parotids negative. seen by ENT at [facility], 01/04/2021 ENT recommended No further follow up [...] mg po daily Might consider referral to [facility] Super[facility] Dry eye syndrome of both eyes 06/08/2018 [...] (09/19/2022 5:42 PM EDT): Used to follow w/[facility] in [facility] We received a Pap smear report from 03/23/2019 that was NEGATIVE with HPV negative as well Pt was seen by Julisa Mcknight repeat Pap 08/07/2021 showed ASCUS HPV neg. Seen by Dr Oliverio Camarillo for colposcopy completed 09/07/2021 Assessment & Plan (02/25/2022 2:22 PM EST): Used to follow w/[facility] in [facility] We received a Pap smear report from [...] past with knee injections, Was seen at [facility], they recommended surgical intervention per her report but if not to try PT. Previous visit she told me she wanted to be referred to a local range management specialist She was last seen at [facility] they recommended steroid injections or consideration of surgical intervention. Pt seeing a different orthopaedist now [facility] seen 07/14/2024 received steroid injection Assessment & Plan (02/04/2023 1:42 PM EST): Pt with chronic bilateral knee pain, has done well in the past with knee injections, Was seen at [facility], they recommended surgical intervention per her report but if not to try PT. Previous visit she told me she wanted to be referred to a local range management specialist She was last seen at [facility] they recommended steroid injections or consideration of surgical intervention. Pt wanted to go to PT, today she tells me she wanted to wait until after her cataract surgery Assessment & Plan (12/24/2022 10:16 AM EDT): Pt with chronic bilateral knee pain, has done well in the past with knee injections, Was seen at [facility], they recommended surgical intervention per her report but if not to try PT. Previous visit she told me she wanted to be referred to a local range management specialist She was last seen at [facility] they recommended steroid injections or consideration of surgical intervention. Pt wants to go to PT Assessment & Plan (02/25/2022 2:21 PM EST): Pt with chronic bilateral knee pain, has done well in the past with knee injections, Was seen at [facility], they recommended surgical intervention per her report but if not to try PT. Previous visit she told me she wanted to be referred to a local range management specialist She was referred to Dr Liao at [facility]. Encounters Date Type Department Care Team Description 12/01/2024 10:15 AM EDT Office Visit [facility] [address] [place] [phone] Rupal Jain, DMITRI Mastalgia (Primary Dx); Subcutaneous mass; Encounter for immunization 12/01/2024 Refill [facility] [address] [place] [phone] Conner Méndez MD Chronic neck pain 12/01/2024 Travel 11/30/2024 Telephone [facility] [address] [place] [phone] Conner Méndez MD chartprep 11/25/2024 Telephone [facility] [address] [place] [phone] Conner Méndez MD Referral 11/21/2024 Refill [facility] [address] [place] [phone] Conner Méndez MD Primary insomnia 09/23/2024 10:15 AM EDT Office Visit [facility] [address] [place] [address] Conner Méndez MD Chronic neck pain (Primary Dx); Primary osteoarthritis of right knee; Chest discomfort; Gastroesophageal reflux disease without esophagitis; Dysphagia, unspecified type; Pain around toenail, right foot; Preventative health care; Breast cancer screening by mammogram 09/23/2024 Travel 09/22/2024 Telephone [facility] [address] [place] [address] Conner Méndez MD CHART PREP 09/12/2024 Refill [facility] [address] [place] [address] Conner Méndez MD Primary insomnia from Last 3 Months Immunizations Immunization Administration Dates Next Due Influenza injectable quadriv alent IIV4 with preservative 12/08/2018,11/12/2017,11/26/2016 Influenza injectable quadriv alent preservative free 12/24/2022,01/15/2022,11/30/2020,12/21 Influenza, seasonal, injecta ble, preservative free 12/01/2024,02/09/2024 Meningococcal MCV4P [id number] 03/17/2019 Pfizer Covid-19 Vaccine [...] Sign Reading Time Taken Comments Blood Pressure 122/74 12/01/2024 10:48 AM EDT Pulse 76 12/01/2024 10:48 AM EDT Temperature 35.7 C (96.2 F) 12/01/2024 10:48 AM EDT Respiratory Rate 20 12/01/2024 10:48 AM EDT Oxygen Saturation 99% 12/01/2024 10:48 AM EDT Inhaled Oxygen Concentration - - Weight 67.1 kg (148 lb) 12/01/2024 10:48 AM EDT Height 147.3 cm (4' 10 ) 12/01/2024 10:48 AM EDT Body Mass Index 30.93 12/01/2024 10:48 AM EDT Plan of Treatment Upcoming Encounters Date Type Department Care Team (Late st Contact Info) Description 12/21/2024 10:15 AM EDT Office Visit [facility] [address] [place] [address] Conner Méndez MD [address] [place] [address] Health Maintenance Due Date Last Done Comments [...] 1-dose series) 2021 Dental X-Ray: Bitewings 08/02/2021 08/02/19 21, 09/08/2018, 03/03/2017 Dental Oral Exam 07/11/2022 01/10/2022, 09/2020, 09/08/2018, Additional history exists Dental Prophylaxis 07/22/2022 01/21/2022, 0 08/01/2020, 10/27/2018 Cervical Cancer Screening 08/07/2024 HPV/Cotest 08/07/2024 08/07/2021, 06/24, 11/26/2016 Pap Smear 08/07/2024 08/07/2021, 07/12/2020 COVID-19 Vaccine ( season) 2024 03/04/2022, 10/08/2021, 06/21/2020, Additional history exists Mammogram 11/19/2024 11/20/2023, 09/24, [...] to complete this topic Influenza Vaccine Completed 12/01/2024, , 12/24/2022, Additional history exists HIB Vaccines Aged Out [...] PM EDT Narrative 12/02/2023 5:55 PM EDT [facility] [address] [place], [place] [address] Mammography Report Signed Patient: Rosemary Mcgovern MR#: [id number] 5 : 1960 Acct:[id number] Age/Sex: 63 / F ADM Date: 11/20/23 Loc: HO.MAMMO Attending Dr: Conner Smith MD Ordering Physician: Conner Smith MD Resu lts: 1Negative Date of Service: 11/20/23 Follow Up: 1 Year From Orig ina Mammogram Procedure(s): MM tomosynthesis screening BI Accession Number(s): [id number] cc: Conner Smith MD EXAMINATION: MM SCREENING [...] 12/02/23 1752 DD/ 1620 TD/TT: 11/20/23 1631 Commercial Pest Control Technician: Procedure Note Donotuseinterpreter, Image - 12/02/2023 [facility] [address] [place] [address] Mammography Report Signed Patient: Iain Mcgovern#: [id number] 5 : 1960cct:[id number] Age/Sex: 63 / FADM Date: 11/20/23 Loc: HO.MAMMO Attending Dr: Conner Smith MD Ordering Physician: Conner Smith MDResu lts: 1Negative Date of Service: 11/20/23Follow Up: 1 Year From Orig inal Mammogram Procedure(s): MM tomosynthesis screening BI Accession Number(s): [id number] cc: Conner Smith MD EXAMINATION: MM SCREENING [...] 12/02/23 1752 DD/ 1620 TD/TT: 11/20/23 1631 Commercial Pest Control Technician: Conner Guerin MD IMG BI PROCEDURES Theron shahrzad Result - Final * Lipid Panel, Standard (09/03/2023 10:21 AM EDT) Triglycerides 65 <150 mg/dL [facility] Comment:Desirable Triglyceri de: less than 150 mg/dLBorderline High Triglyceride 150-199 mg/dLHigh Triglyceride: 200-499 mg/dLVery High Triglyceride: greater than or equal to 5OO mg/dL Cholesterol 176 <200 mg/dL [facility] Comment:Desirable Cholestero l: less than 200 mg/dLBorderline High Cholesterol: 200-239 mg/dLHigh Cholesterol: greater than 239 mg/dL LDL Cholesterol Calculated 98 <100 mg/dL [facility] Comment:Desirable LDL: less than 100 mg/dLNear Optimal/Above Optimal LDL: 110- 129 mg/dLBorderline High LDL: 130-159 mg/dLHigh LDL: 160-189 mg/dLVery High LDL: greater than or equal to 190 mg/dL HDL Cholesterol 65 >40 mg/dL [facility] Comment:Desirable HDL: great er than 40 mg/dL Note: This HDL assay may give artificially low results in patients with liver disease. Blood Venous blood specimen / Unknown 09/03/2023 10:21 AM EDT 09/03/2023 12:58 PM EDT Conner Guerin MD LAB BLOOD ORDERABLES Final Result [facility] [address] [place] [address] [phone] * (ABNORMAL) THINPREP TIS PAP AND HPV mRNA E6/E7 WITH REFLEX TO HPV 16,18/45 (08/07/2021 1:17 PM EDT) Clinical Information: [facility] COMMENT SEE COMMENT FOUNDATI ON [...] has been evaluated with computer assisted technology. [facility] [employer] : SEE COMMENT [facility] Comment: ORAL FERRO(ASCP) CT screening location: [place] [address] General Categorization: EPITHELIAL CELL ABNORMALITY(A) [facility] HPV nRNA E6/E7 Not Detected Not Detected [facility] Comment: Methodology: Elastic Attacher Chainstitch-Mediated Amplification This assay detects E6/E7 viral messenger RNA (mRNA) from 14 high-risk HPV types (16,18,31,33,35,39,45,51,52,56,58,59,66,68). Cervical sources are required for HPV testing. If a vaginal source from a patient who has had a total hysterectomy with removal of cervix was submitted, please contact the testing laboratory for alternative testing options. For additional information, please refer to http://education.EMOSpeech/faq/NCR030n0 (This link if provided for information/ educational purposes only.) Interpretation/R esult: SEE COMMENT(A) [facility] Comment: Atypical Squamous Cells of Undetermined Significance (ASC-US) Atrophic pattern; predominantly parabasal cells LMP: [facility] PATHOLOGIST: SEE COMMENT FOUND [facility] Comment: Myrna Ng MD, PhD, Board Certified in Anatomic and Clinical Pathology (electronic signature) Consulting Pathologist [facility] [address] [place] [address] Prev. BX: 2018 LEEP: EMILIANO 3 [facility] Prev. PAP: NIL/NEG [facility] SOURCE: None given [facility] Statement Of Adequacy: SATISFACTORY FOR EVALUATION [facility] 08/07/2021 1:17 PM EDT us Julisa Mcknight CNM LAB PATHOLOGY ORDERABLES Final Result [facility] [address] * Colonoscopy (06/27/2020) Colonoscopy Normal Normal 06/27/2020 Kady Hurtado - 06/27/2020 10:58 AM EDT Recommended 10 year follow up ( see scanned notes) us Historical Provider MD HEALTH MAINTENANCE Edited Result - Final from Last 3 Months or Most Recently Relevant to Health Maintenance [place] [address] [place] [address] C3 [facility] MEDICAID STAND ADULT Care Teams Service Representative Relationship Specialty Start Date End Date Conner Méndez MD [address] [place] [phone] PCP - General Internal Medicine 12/08/18
--- OUTSIDE RECORDS SUMMARY | 2024-12-07 07:58 | XMS_ITS | Encounter Summary ---
Author Organization [employer] Address [address] [facility] 7t [place] [address] Care Team Providers Care Radiator Specialist Name Role Phone Conner Méndez MD Primary Care Provide r Reason for Visit * Reason Comments Med Refill Encounter Details Date Type Department Care Team (Late st Contact Info) Description 06/30/2023 Refill [facility] [address] [place], [place] [phone] Bianka Salazar DO [address] [place], [place] [phone] Chronic neck pain Social History Tobacco Use [...] Description 12/21/2024 10:15 AM EDT Office Visit [facility] [address] [place] [address] Conner Méndez MD [address] [place] [address] documented as of this encounter Visit Diagnoses Diagnosis Chronic neck pain Cervicalgia documented in this encounter Additional Health Concerns Assessment Noted Time PHQ-9 Depression Total Score: 0 09/20/19 23 9:04 AM EDT documented as of this encounter Care Teams Radiator Specialist Relationship Specialty Start Date End Date Conner Méndez MD [address] [place] [address] PCP - General Internal Medicine 12/08/18 documented as of this encounter
--- OUTSIDE RECORDS SUMMARY | 2024-12-07 07:58 | XMS_ITS | Encounter Summary ---
Author Organization [employer] Address 75 [facility] 7t [place] [address] Care Team Providers Care Admitting Counselor Name Role Phone Conner Méndez MD Primary Care Provide r Encounter Details Date Type Department Care Team (Late Contact Info) Description 06/27/2022 Abstract [facility] MEDICINE [address] [place] [address] [phone] Conner Méndez MD [address] [place] [address] [phone] Social History Tobacco Use Types Packs/Day Years [...] Description 12/21/2024 10:15 AM EDT Office Visit [facility] MEDICINE [address] [place] [address] [phone] Conner Méndez MD [address] [place], [place] [phone] documented as of this encounter Procedures Procedure [...] on filedocumented in this encounter Care Teams Admitting Counselor Relationship Specialty Start Date End Date Conner Méndez MD [address] [place] [address] PCP - General Internal Medicine 12/08/18 documented as of this encounter
--- OUTSIDE RECORDS SUMMARY | 2024-12-07 07:58 | XMS_ITS | Encounter Summary ---
Author Organization [employer] Address 75 [facility] 7t [place] [address] Care Team Providers Care Auto Care Center Manager Name Role Phone Conner Méndez MD Primary Care Provide r Reason for Visit * Reason Comments Med Refill Encounter Details Date Type Department Care Team (Late st Contact Info) Description 06/30/2023 Refill [facility] MEDICINE [address] [place], [place] [phone] Conner Méndez MD [address] [place], [place] [phone] Papanicolaou smear of vagina with atypical squamous [...] Description 12/21/2024 10:15 AM EDT Office Visit [facility] MEDICINE [address] [place], [place] [phone] Conner Méndez MD [address] [place] [address] documented as of this encounter Visit Diagnoses Diagnosis Papanicolaou smear of vagina with atypical squamous cells of undetermined significance (ASC-US) documented in this encounter Additional Health Concerns Assessment Noted Time PHQ-9 Depression Total Score: 0 09/20/19 23 9:04 AM EDT documented as of this encounter Care Teams Auto Care Center Manager Relationship Specialty Start Date End Date Conner Méndez MD [address] [place] [address] PCP - General Internal Medicine 12/08/18 documented as of this encounter
--- OUTSIDE RECORDS SUMMARY | 2024-12-07 07:58 | XMS_ITS | Encounter Summary ---
Author Organization [employer] Address 75 [facility] 7t [place] [address] Care Team Providers Care Elevator Constructor Hydraulic Name Role Phone Conner Méndez MD Primary Care Provide r Reason for Visit * Reason Comments Med Refill Encounter Details Date Type Department Care Team (Late st Contact Info) Description 12/01/2024 Refill [facility] MEDICINE [address] [place], [place] [phone] Conner Méndez MD [address] [place], [place] [phone] Chronic neck pain Social History Tobacco Use [...] Office Visit [facility] MEDICINE [address] [place] [address] Conner Méndez MD [address] [place] [address] documented as of this encounter Visit Diagnoses Diagnosis Chronic neck pain Cervicalgia documented in this encounter Additional Health Concerns Assessment Noted Time PHQ-9 Depression Total Score: 8 09/24/19 25 10:19 AM EDT documented as of this encounter Care Teams Elevator Constructor Hydraulic Relationship Specialty Start Date End Date Conner Méndez MD [address] [place] [address] PCP - General Internal Medicine 12/08/18 documented as of this encounter
--- OUTSIDE RECORDS SUMMARY | 2024-12-07 07:58 | XMS_ITS | Encounter Summary ---
Author Organization [employer] Address 75 [facility] 7t [place] [address] Care Team Providers Care Business Support Manager Name Role Phone Conner Méndez MD Primary Care Provide r Encounter Details Date Type Department Care Team (Latest Contact Info) Description 08/01/2020 Abstract [facility] CONVERSIONS Dental, Provider, DDS Social History [...] Description 12/21/2024 10:15 AM EDT Office Visit [facility] MEDICINE [address] [place] [address] Conner Méndez MD [address] [place] [address] documented as of this encounter Visit Diagnoses Not on filedocumented in this encounter Care Teams Business Support Manager Relationship Specialty Start Date End Date Conner Méndez MD [address] [place] [address] PCP - General Internal Medicine 12/08/18 documented as of this encounter
--- OUTSIDE RECORDS SUMMARY | 2024-12-07 07:58 | XMS_ITS | Data Portability ---
Author Organization [place] [facility], Allergy Address 100 [facility] 100 [place] [address] Assessment No assessment recorded. Plan of Treatment Reminders Order Date Submit Date Provider Last Modified By Organization Details Last Modified Time Details Appointments None recorded. Lab None recorded. Referral None recorded. Procedures None recorded. Surgeries None recorded. Imaging None recorded. Medication Orders clotrimaz ole-betam ethasone 1 %-0.05 % topical cream 024 [facility][id number], [address] [place], [address], 12:26:08 Patient TargetsNo targets recorded. Patient InstructionsNo instructions recorded. Reason for Referral None Reported. Results Created Date Observation Date Name Description Value Unit Range Abnormal Flag Note LastModifiedBy Organization Detail LastModifiedTime 09/16/19 24 audio gram No observ ation record ed. [id number] Not Available 08/25 14:41:16 Result Notes None recorded. Problems Name Problem SNOMED Code Status Onset Date Resolution Date Notes Provider Name and Address Organization Details Recorded Time Sensorineural hearing loss of bilateral ears 287675877 Active 2023 Mely dennison [place] - [facility] 4 11:55:56 Chronic eczema of external auditory canal 760130090 Active 2023 ANIRUDH Mcdonough MD 100 [facility] 100, [place], [phone] [place] [address] - [facility] 4 12:07:53 Candidal otitis externa 88621501 Active 2023 ANIRUDH Mcdonough MD [address] [address], [place], [phone], [facility] - [facility] 4 12:09:02 Chronic mycotic otitis externa 488296348 Active 2023 ANIRUDH Mcdonough MD 100 [facility] 100, [place], [phone], [facility] - [facility] 4 12:09:02 Dermal mycosis 01881317 Active 2023 ANIRUDH Mcdonough MD [address] [address], [place], [phone], [facility] - [facility] 4 12:09:02 Problem Notes None recorded. Procedures Surgical History Date Name Laterality Status Provider Name and Address Organization Details Recorded Time 09/16/19 24 Tympanometry - 61551 completed eMly Holbrook [place] - [facility] 09/16/2023 11:55:42 09/16/19 24 [employer] Bone Audio - 79929 completed Mely Holbrook [place] [facility] 09/16/2023 11:55:48 Imaging Results None recorded. Procedure Notes None recorded. Medical Equipment None Reported. Medications Name Sig Start Date Stop Date Status Note LastModified by Organization Details LastModified Time cyclobenzapr ine 10 mg tablet TAKE 1 TABLET BY MOUTH AT BEDTIME NEEDED FOR MUSCLE SPASM active Not Available Not Available No t Available trazodone 50 mg tablet TAKE 1 TABLET [...] Not Available Not Available No t Available prednisone 20 mg tablet TAKE 2 TABLETS BY MOUTH ORALLY EVERY DAY FOR 5 DAYS active Not Available Not Available N ot Available levothyroxin e 75 mcg tablet TAKE 1 TABLET BY MOUTH [...] propranolol 10 mg tablet TAKE 1/2 TABLET TWICE A DAY BY MOUTH active Not [...] Not Available Not Available N ot Available gabapentin 300 mg capsule TAKE 1 CAPSULE EVERY DAY BY ORAL ROUTE AT BEDTIME FOR 30 DAYS, FOR PAIN. active Not Available Not Available No t Available doxycycline hyclate 100 mg tablet TAKE [...] Available Vitamin D3 25 mcg (1,000 unit) capsule TAKE 1 CAPSULE (25 MCG) BY MOUTH IN THE MORNING. active Not Available Not Available No t [...] Address Organization Details Last Updated DateTime 09/16/2023 44548.71 g 25.3 kg/m2 160.02 cm Jennifer Mora [place] - [facility] 09/16/2023 12:03:28 Social History None recorded. Functional Status None recorded. Mental Status None recorded. Family History Nothing Reported. Medical History No medical history recorded. Past Encounters Encounter ID Performer Location Encounter Start Date Encounter Closed Date Diagnosis/Indication Diagnosis SNOMED-CT Code Diagnosis ICD10 Code Diagnosis IMO Codes Diagnosis Note [id number] ANIRUDH BRUCE MD [facility] [address] [place] [address] 09/16/2023 11:00:56 09/16/2023 12:28:03 Sensorineural hearing loss of bilateral ears 095149143 H90.3 Audiologic al evaluation results:Ri ght ear:Essent ially mild sensorineu ral hearing loss with no measurable word recognitio n.Left ear:Essent ially mild sensorineu ral hearing loss with no measurable word recognitio n.WRS and SRT could not be measured due to language barriers.T ympanometr y:Right Ear:Type ALeft Ear:Type A hearing aids are not yet necessary. Recommend audiogram in 2 years. Chronic ec zema of external auditory canal 853563780 H60.8X9 I recommend she moisturize her EAC skin. Can use lotrisone when itchy. Chronic my cotic otitis externa 332578657 H60.399 Dermal mycosis 51973361 B36.9 Candidal o titis externa 49338718 B37.84 Health Concerns Section Related Observation LastModified by Organization Detai ls LastModified Time None Recorded Concern Status LastModified by Organization Details LastModified Time None Recorded Advance Directives Directive None Recorded Payers Insurance Date Sequence Insurance Name Policy Number Policy Velázquez Covered Member ID Velázquez Member ID Guarantor Name 07/25/2024 1 [place] [facility] [facility] (MEDICAID) [facility] [id number] [facility] Notes Date Note Type Note Provider Name and Address Organization Details Recorded Time 09/16/2023 text/html ROS as noted in the HPI She presents with gradual hearing loss over time. She is also reports dry, scaly EAC skin. She has bilateral tinnitus. ANIRUDH BRUCE MD [address] [address], [place], [address], [facility] 09/16/2023 12:26:07
--- OUTSIDE RECORDS SUMMARY | 2024-12-07 07:58 | XMS_ITS | Clinical Summary ---
Author Organization [facility] Address [address] [place] [address] Care Team Providers Care Development Specialist Name Role Phone Conner Smith Primary Care [...] complete this topic Procedures * Due to [place] state law, this organization might not be sharing negative HIV tests. Procedure Name Priority Date/Time Associated Diagnosis Comments COLONOSCOPY 06/27/2020 PAP Routine 03/23/2019 2:47 PM EST Atypical squamous cells of undetermined significance on cytologic smear of cervix (ASC-US) from Last 3 Months or Most Recently Relevant to Health Maintenance Results * Due to [place] [employer] law, this organization might not be sharing negative HIV tests. * COLONOSCOPY (06/27/2020) Narrative Procedure Note Charli Jaramillo MD - 06/27/2020 2:09 PM EDT [facility] Patient Name: Rosemary Mcgovern Procedure Date: 06/27/2020 2:09 PM Date of : 1960 Age: 60 Room: [place] [address] Gender: Female Note Status: Finalized Attending MD: [...] PM EST) Specimen Adequacy Satisfactory for evaluation [facility] MANUAL 03/31/2019 1:56 PM EST [facility] - [facility] Pathologist Cytology Interpretation Negative for intraepithelial lesion or malignancy. [facility] MANUAL 03/31/2019 1:56 PM EST [facility] at 1356 EST Comment:This is the result o f a morphological screening test with an inherent possibility of a false negative interpretation. Spray Gun Repairer Statement This Pap test was examined by the [facility], [employer], [place], [place]. This Pap test was examined in accordance with the [facility] Cytopathology Laboratory written policy, which incorporates all CLIA mandates. Screening guidelines can be found in Am J Clin Pathol 2012;137:516-542. We endorse the practice guidelines developed by ASCCP and published in the Journal Lower Genital Tract Disease 17(5):S1-S27 (2013). [facility] MANUAL 03/31/2019 1:56 PM EST [facility] Clinical History ascus hpv + [facility] MANUAL 03/31/2019 1:56 PM EST [facility] HPV High Risk DNA Subtypes NEGATIVE [facility] MANUAL 03/31/2019 1:56 PM EST [facility] Test Description Specimens were tested for high risk HPV using the FDA approved Digene Hybrid Capture II kit, in the Diagnostic Molecular Oncology Lab at [facility]. This test can detect HPV high risk [...] abnormality. We endorse the recommendations of the [employer] Society for Colposcopy and Cervical Pathology for management of pap test results, available at www.asccp.org. ASCCP guidelines also recommend HPV 16/18 genotyping in patients over the age of 30 who have had positive high risk HPV testing, but have a negative morphologic Pap test: (http://www.asccp .org/consensus.sh tml). [facility] MANUAL 03/31/2019 1:56 PM EST [facility] - In[employer] THREE ASR Disclaimer The performance characteristics of [...] to perform high complexity clinical laboratory testing. [facility] MANUAL 03/31/2019 1:56 PM EST [facility] Resulting Agency Case was signed out at [facility], Department of Pathology, [employer] 3 CLIA [id number] [facility] MANUAL 03/31/2019 1:56 PM EST [facility] Report Header Gynecologic Cytology Report Case: [id number] Authorizing Provider: Eva Mcclain MD Collected: 03/23/2019 1447 Ordering Location: [facility] Received: 03/23/[address] [place] [address] Obstetrics and Gynecology First Screen: Darrel Jones Rescreen: Augustin Moreland Specimen: Screening ThinPrep Pap, Cervix/Endocervix 03/31/2019 1:56 PM EST [facility] Brushing Cervix uteri structure / Unknown Non-Blood Collection / Unknown 03/23/2019 2:47 PM EST 03/23/2019 4:21 PM EST us Eva Mcclain MD LAB PATHOLOGY/CYTOLOGY ORDER HAYDEE Final Result [facility] [address] [place] [address], from Last 3 Months or Most Recently Relevant to Health Maintenance Insurance [employer] MARCELA [id number] Care Teams Development Specialist Relationship Specialty Start Date End Date Conner Smith [address] [place] [address] PCP - General Internal Medicine 09/15/19
--- OUTSIDE RECORDS SUMMARY | 2024-12-07 07:58 | XMS_ITS | Encounter Summary ---
Author Organization [employer] Address 75 [facility] 7t [place] [address] Care Team Providers Care Dianeticist Name Role Phone Conner Méndez MD Primary Care Provide r Reason for Visit * Reason Comments Med Refill Encounter Details Date Type Department Care Team (Late st Contact Info) Description 10/03/2023 Refill [facility] MEDICINE [address] [place], [place] [phone] Conner Méndez MD [address] [place], [place] [phone] Primary insomnia Social History Tobacco Use Types Packs/Day Years Used Date Smoking Tobacco: Never Passive Smoke Exposure: Never Smokeless Tobacco: Never Depression Answer Date Recorded Patient Health Questionnaire-9 Score 4 09/02/2023 Patient Health Questionnaire-9 Score 4 09/02/2023 Last PHQ-9: Questionnaire Data Not on file 0 09/02/2023 Housing Stability Answer Date Recorded What is your housing situation today? I have carter eyn 03/25/[address] you li [...] Description 12/21/2024 10:15 AM EDT Office Visit [facility] MEDICINE [address] [place] [address] Conner Méndez MD [address] [place] [address] documented as of this encounter Visit Diagnoses Diagnosis Primary insomnia Persistent disorder of initiating or maintaining sleep documented in this encounter Additional Health Concerns Assessment Noted Time PHQ-9 Depression Total Score: 4 09/02/19 24 10:34 AM EDT documented as of this encounter Care Teams Dianeticist Relationship Specialty Start Date End Date Conner Méndez MD [address] [place] [address] PCP - General Internal Medicine 12/08/18 documented as of this encounter
--- OUTSIDE RECORDS SUMMARY | 2024-12-07 07:58 | XMS_ITS | Encounter Summary ---
Author Organization [email or web address] Address [address] [facility] 7t [place] [address] Care Team Providers Care Mri Assistant Name Role Phone Conner Méndez MD Primary Care Provide r Encounter Details Date Type Department Care Team (Latest Contact Info) Description 01/10/2022 Abstract [facility] CONVERSIONS Dental, Provider, DDS Social History [...] Description 12/21/2024 10:15 AM EDT Office Visit [facility] MEDICINE [address] [place] [address] Conner Méndez MD [address] [place] [address] documented as of this encounter Visit Diagnoses Not on filedocumented in this encounter Care Teams Mri Assistant Relationship Specialty Start Date End Date Conner Méndez MD [address] [place] [address] PCP - General Internal Medicine 12/08/18 documented as of this encounter
--- OUTSIDE RECORDS SUMMARY | 2024-12-07 07:58 | XMS_ITS | Encounter Summary ---
Author Organization [employer] Address 75 [facility] 7t [place] [address] Care Team Providers Care Craft Superintendent Name Role Phone Conner Méndez MD Primary Care Provide r Encounter Details Date Type Department Care Team (Latest Contact Info) Description 10/27/2018 Abstract [facility] CONVERSIONS Dental, Provider, DDS Social History [...] 12/21/2024 10:15 AM EDT Office Visit [facility] MEDICINE [address] [place] [address] Conner Méndez MD [address] [place] [address] documented as of this encounter Visit Diagnoses Not on filedocumented in this encounter Care Teams Craft Superintendent Relationship Specialty Start Date End Date Conner Méndez MD [address] [place] [address] PCP - General Internal Medicine 12/08/18 documented as of this encounter
--- OUTSIDE RECORDS SUMMARY | 2024-12-07 07:58 | XMS_ITS | Encounter Summary ---
Author Organization [employer] Address 75 [facility] 7t [place] [address] Care Team Providers Care Assembly Supervisor Name Role Phone Conner Méndez MD Primary Care Provide r Reason for Visit * Reason Comments Med Change Request Encounter Details Date Type Department Care Team (Late st Contact Info) Description 09/19/2022 Refill [facility] MEDICINE [address] [place], [place] [phone] Conner Méndez MD [address] [place], [place] [phone] Papanicolaou smear of vagina with atypical squamous [...] 9:04 AM EDT Anya Lopez [place] Feeling tired or having tarik le [...] Description 12/21/2024 10:15 AM EDT Office Visit [facility] MEDICINE [address] [place] [address] Conner Méndez MD [address] [place] [address] documented as of this encounter Visit Diagnoses Diagnosis Papanicolaou smear of vagina with atypical squamous cells of undetermined significance (ASC-US) documented in this encounter Additional Health Concerns Assessment Noted Time PHQ-9 Depression Total Score: 0 09/20/19 23 9:04 AM EDT documented as of this encounter Care Teams Assembly Supervisor Relationship Specialty Start Date End Date Conner Méndez MD [address] [place] [address] PCP - General Internal Medicine 12/08/18 documented as of this encounter
--- OUTSIDE RECORDS SUMMARY | 2024-12-07 07:58 | XMS_ITS | Clinical Summary ---
Author Organization [address] [facility] Address [address] [place] [address] Phone Care Team Providers Care County Extension Agent Name Role Phone Conner Smith MD Primary [...] Upcoming Encounters Date Type Department Care Team ([facility] Contact Info) Description 12/14/2024 10:15 AM EDT Office Visit [facility] [address] [address] Avelino Morocho, DPM [address] [address] Health Maintenance Due Date Last [...] topic Insurance MEDICAID - [place] Care Teams County Extension Agent Relationship Specialty Start Date End Date Conner Smith MD [address] [place] [address] PCP - General Internal Medicine 09/28/24
== END ==
LOC: HO.CARD 07:55
PROVIDERS: PCP Internal Medicine; Visit Provider Internal Medicine Cardiovascular Disease
DX: R07.89 Other chest pain (principal)
CPT/HCPCS: 78452; 93017; 93306; A9500; J0280; J2785

== ENCOUNTER → 2024-12-07 07:58 | Outpatient (BNV) | payer MEDICAID, SELFPAY | PROVIDERS: PCP Internal Medicine; Visit Provider Nurse Practitioner Family | DX: I42.2 Other hypertrophic cardiomyopathy (principal); R07.89 Other chest pain | CPT/HCPCS: 78452; 93016; 93018; 93350 ==

== ENCOUNTER 2024-12-15 11:28 | Outpatient (REF) | payer MEDICAID, SELFPAY ==
--- OUTSIDE RECORDS SUMMARY | 2024-12-14 10:15 | XMS_ITS | Encounter Summary ---
Author Organization [facility] Address [id number] [place] [phone] Care Team Providers Care Container Washer Name Role Phone Conner Smith MD Primary Care Provi giovani Reason for Visit * Reason Comments Pain * Consultation (Routine) - Authorized Specialty Diagnoses / Procedures Referred By Contact Referred To Contact Podiatry / Orthopaedic Surgery Diagnoses Pain in right toe(s) Conner Smith MD [address] [place] [address] Phone: tel: fax: Avelino Morocho DPM [address] [address] Phone: tel: fax: Referral ID Status Reason Start Date Expiration Date Visits Requested Visits Authorized [id number] Authorized Specialty Services Required 09/24/2024 09/24/2025 6 6 Encounter Details Date Type Department Care Team ([facility] Contact Info) Description 12/14/2024 10:15 AM EDT Office Visit Orthopedic Surgery - [place] [address] [address] Avelino Morocho DPM [address] [phone] Ingrowing nail (Primary Dx); Dermatophytosis of nail Social History Tobacco Use Types Packs/Day Years Used Date Smoking Tobacco: Never Assessed Comments Unknown Sex and Gender Information Value Date Recorded Sex Assigned at Not on file Legal Sex Female 11:00 AM EST Gender Identity Not on file Sexual Orientation Not on file documented as of this encounter Ordered Prescriptions Prescription Sig Dispense Quantity Refills Last Filled Start Date End Date clotrimazole (LOTRIMIN) 1 % cream Apply topically 2 (two) times a day. 30 g 3 12/14/2024 documented in this encounter Progress Notes * Avelino Morocho, DPM - 12/14/2024 10:15 AM EDT Last PCP visit:Referring MD: Favio Smith* IDENTIFIER: Shaniqua is a 64 y.o. year old female who presents for consultation. CC: Foot pain HPI: Shaniqua is a 64 y.o. year old female presents complaining of chronic ingrowing right great toenail she is from a history of trauma as a child she has the nails also thick and discolored she is wonder if it is fungus presents today with her daughter present reports pain is a 5 out of 10 on a visual analog scale ROS: GENERAL: Pt denies nausea, fever, vomiting, chills, or shortness of breath. Pt in NAD. CARDIOLOGY: pt denies chest pain, palpitations LUNGS: pt denies shortness of breath MUSCULOSKELETAL: See HPI, otherwise no joint pain or swelling, back pain, or muscle pain. SKIN: see HPI, otherwise no lesions, rash or itching NEURO: No persistent headache, weakness or numbness The remainder of the review of systems is noncontributory PAST MEDICAL HISTORY: Problem List[1] SOCIAL HISTORY: Social History Tobacco Use Smoking status: Not on file Smokeless tobacco: Not on file Substance Use Topics Alcohol use: Not on file ACTIVE MEDICATIONS: Medications Taking[2] ALLERGIES: Allergies[3] PHYSICAL EXAM: There were no vitals taken for this visit. PODIATRIC EXAMINATION: GENERAL: Patient appears well nourished, with NAD. VASCULAR: Dorsalis pedis pulses are 2/4 bilaterally and Posterior tibial pulses are 2/4 bilaterally. Capillary filling time within normal limits the digits. No pallor on elevation or rubor on dependency. No varicosities. Denies rest pain or claudication pain. NEUROLOGICAL: Sharp/dull sensation intact, protective sensation intact 10/10 with Ipswitch touch test bilaterally, vibratory sensation intact to the tibial tuberosity. ORTHOPEDIC: Good muscle strength 5/5 of all flexors and extensors. Dorsi flexion of ankle ,10 degrees, plantar flexion WNL. No muscle atrophy. DERMATOLOGICAL:.Abnormal curvature right great toe inner border with localized redness swelling irritation thickness fungal discoloration right great toe BIOMECHANICS: Ankle ROM WNL, STJ ROM wnl, MTJ ROM wnl, 1st MPJ ROM wnl. IMAGING: IMPRESSION: 1. Ingrowing nail 2. Dermatophytosis of nail PLAN: Pt was seen and examined, history reviewed. Minor surgical procedure of nail removal with matrixectomy was discussed and reviewed versus nail removal discussed with patient risks of nail procedure including scar tissue formation reoccurrence loss of more nail deformity cosmetic changes that are undesirable Nail cleaned clotrimazole prescribed Follow-up in 1 3 months Avelino Morocho DPM [1] There is no problem list on file for this patient. [2] Outpatient Medications Marked as Taking for the 12/14/24 encounter (Office Visit) with Avelino Morocho DPM Medication Sig Dispense Refill Daily-Brenton, with folic acid, 400 mcg tablet Take 1 tablet by mouth 1 (one) time each day in the morning. gabapentin (NEURONTIN) 300 mg capsule TAKE 1 CAPSULE EVERY DAY BY ORAL ROUTE AT BEDTIME FOR 30 DAYS, FOR PAIN. levothyroxine (SYNTHROID, LEVOTHROID) 75 mcg tablet Take 1 tablet (75 mcg total) by mouth 1 (one) time each day. before breakfast meloxicam (MOBIC) 15 mg tablet TAKE 1 TABLET (15 MG) BY MOUTH DAILY NEEDED FOR MODERATE PAIN omeprazole (PriLOSEC) [address] capsule TAKE 1 CAPSULE (40 MG) BY MOUTH BEFORE BREAKFAST DO NOT CRUSH OR CHEW propranoloL (INDERAL) 10 mg tablet TAKE 1/2 TABLET TWICE A DAY BY MOUTH rOPINIRole (REQUIP) 0.25 mg tablet Take 1 tablet (0.25 mg total) by mouth at bedtime. traZODone (DESYREL) 100 mg tablet Take 1 tablet (100 mg total) by mouth at bedtime. [3] No Known Allergies documented in this encounter Plan of Treatment Upcoming Encounters Date Type Department Care Team (Late st Contact Info) Description 03/28/2025 10:30 AM EST Office Visit Orthopedic Surgery - [address] [phone] Avelino Morocho, DPM 175 [facility] [address] [place] [address] documented as of this encounter Visit Diagnoses Diagnosis Ingrowing nail- Primary Dermatophytosis of nail documented in this encounter Historical Medications * This list may reflect changes made after this encounter. traZODone (DESYREL) 100 mg tablet Take 1 tablet (100 mg total) by mouth at bedtime. 12/01/2024 rOPINIRole (REQUIP) 0.25 mg tablet Take 1 tablet (0.25 mg total) by mouth at bedtime. 11/23/2024 propranoloL (INDERAL) 10 mg tablet TAKE 1/2 TABLET TWICE A DAY BY MOUTH 10/02/2024 omeprazole (PriLOSEC) [address] capsule TAKE 1 CAPSULE (40 MG) BY MOUTH BEFORE BREAKFAST DO NOT CRUSH OR CHEW 09/23/2024 Daily-Brenton, with folic acid, 400 mcg tablet Take 1 tablet by mouth 1 (one) time each day in the morning. 10/02/2024 meloxicam (MOBIC) 15 mg tablet TAKE 1 TABLET (15 MG) BY MOUTH DAILY NEEDED FOR MODERATE PAIN 09/02/2024 levothyroxine (SYNTHROID, LEVOTHROID) 75 mcg tablet Take 1 tablet (75 mcg total) by mouth 1 (one) time each day. before breakfast 11/07/2024 gabapentin (NEURONTIN) 300 mg capsule TAKE 1 CAPSULE EVERY DAY BY ORAL ROUTE AT BEDTIME FOR 30 DAYS, FOR PAIN. 06/16/2024 added in this encounter Orders Outpatient Referral Count Last Ordered Date Fir st Ordered Date AMB REFERRAL TO PODIATRY 1 12/14/2024 documented in this encounter Care Teams Container Washer Relationship Specialty Start Date End Date Conner Smith MD [address] [place] [address] PCP - General Internal Medicine 09/28/24 documented as of this encounter
--- NOTE | ~2024-12-15 | US_ITS ---
EXAMINATION: MM DIAGNOSTIC DIGITAL BREAST TOMOSYNTHESIS, BILATERAL Limited right breast ultrasound. CLINICAL INFORMATION: Right breast pain lower inner quadrant. Bilateral nipple discharge. COMPARISON: Mammography: Comparison is made with relevant prior exams. TECHNIQUE: Digital breast mammography with tomosynthesis is performed in both the craniocaudal and mediolateral oblique views along with computer-aided detection (CAD). FINDINGS: There are scattered areas of fibroglandular density. Bilateral circumscribed oval masses which wax and wane consistent with benign fibrocystic changes. Right: Triangular marker lower inner quadrant without underlying abnormal finding at site of patient's pain. Postsurgical changes. Focal asymmetry retroareolar region middle to posterior depth is stable dating back to 2020. Targeted color Doppler ultrasound scanning in the right breast area of patient's pain from 2-6 o'clock demonstrates normal fibronodular breast tissue. Targeted color Doppler ultrasound scanning in the right retroareolar region area of yellow nipple discharge demonstrates normal follicular breast tissue. Left: No suspicious masses calcifications or other abnormal findings. Targeted color Doppler ultrasound scanning in the retroareolar region area of nipple discharge demonstrates normal fibronodular breast tissue. Results are provided to the patient at time of visit by the technologist. US/US Breast BI Limited Mamm Only IMPRESSION: Left: No mammographic or sonographic abnormal finding to account for the patient's nipple discharge. Recommend clinical evaluation follow-up. Right: No mammographic or sonographic abnormal finding to account for the patient's right breast pain. Recommend clinical evaluation follow-up. No mammographic or sonographic abnormal finding to account for the patient's nipple discharge. Recommend clinical evaluation follow-up. ASSESSMENT: BI-RADS Category 1: Negative RECOMMENDATION: 1 year F/U This patient's information was entered into a reminder system with a target due date for their next mammogram. Electronically signed by: Ericka Guerrier DO 12/15/2024 03:50 PM EDT
--- OUTSIDE RECORDS SUMMARY | 2024-12-15 15:51 | XMS_ITS | Encounter Summary ---
Author Organization [employer] Address 75 [facility] 7t [place] [address] Care Team Providers Care Metal Tile Setter Name Role Phone Conner Méndez MD Primary Care Provide r Reason for Visit * Reason Comments Med Refill Encounter Details Date Type Department Care Team (Late st Contact Info) Description 06/30/2023 Refill [facility] 230 [place], [place] [phone] Conner Méndez MD [address] [place], [place] [phone] Papanicolaou smear of vagina with atypical squamous [...] [facility] 230 [place], [place] [phone] Conner Méndez MD 230 [place] [address] documented as of this encounter Visit Diagnoses Diagnosis Papanicolaou smear of vagina with atypical squamous cells of undetermined significance (ASC-US) documented in this encounter Additional Health Concerns Assessment Noted Time PHQ-9 Depression Total Score: 0 09/20/19 23 9:04 AM EDT documented as of this encounter Care Teams Metal Tile Setter Relationship Specialty Start Date End Date Conner Méndez MD [address] [place] [address] PCP - General Internal Medicine 12/08/18 documented as of this encounter
--- OUTSIDE RECORDS SUMMARY | 2024-12-15 15:51 | XMS_ITS | Clinical Summary ---
Author Organization 175 [facility] Address 175 [place] [address] Phone Care Team Providers Care Pie Baker Name Role Phone Conner Smith MD Primary Care Provi giovani Allergies No known active allergies Medications gabapentin (NEURONTIN) 300 mg capsule TAKE 1 CAPSULE EVERY DAY BY ORAL ROUTE AT BEDTIME FOR 30 DAYS, FOR PAIN. 5 Active levothyroxine (SYNTHROID, LEVOTHROID) 75 mcg tablet Take 1 tablet (75 mcg total) by mouth 1 (one) time each day. before breakfast 5 Active meloxicam (MOBIC) 15 mg tablet TAKE 1 TABLET (15 MG) BY MOUTH DAILY NEEDED FOR MODERATE PAIN 5 Active Daily-Brenton, with folic acid, 400 mcg tablet Take 1 tablet by mouth 1 (one) time each day in the morning. 5 Active omeprazole (PriLOSEC) [address] capsule TAKE 1 CAPSULE (40 MG) BY MOUTH BEFORE BREAKFAST DO NOT CRUSH OR CHEW 5 Active propranoloL (INDERAL) 10 mg tablet TAKE 1/2 TABLET TWICE A DAY BY MOUTH 5 Active rOPINIRole (REQUIP) 0.25 mg tablet Take 1 tablet (0.25 mg total) by mouth at bedtime. 5 Active traZODone (DESYREL) 100 mg tablet Take 1 tablet (100 mg total) by mouth at bedtime. 5 Active clotrimazole (LOTRIMIN) 1 % cream Apply topically 2 (two) times a day. 30 g 3 5 01/14/20 25 Active Encounters Date Type Department Care Team Description 12/14/2024 10:15 AM EDT Office Visit Orthopedic Surgery [facility] [address] [phone] Avelino Morocho DPM Ingrowing nail (Primary Dx); Dermatophytosis of nail from Last 3 Months Social History Tobacco Use Types Packs/Day Years [...] 10:30 AM EST Office Visit Orthopedic Surgery [facility] [address] [phone] Avelino Morocho DPM [address] [phone] Health Maintenance Due Date Last Done Comments Breast Cancer Screening 1960 Colorectal Cancer Screening: Colonoscopy 1960 Hepatitis A Vaccines (1 of 2 - Risk 2-dose series) 02/13/1980 Cervical Cancer Screening: Pap Smear 1982 Pneumococcal Vaccine: 50+ Years (1 of 1 - PCV) 2011 RSV Immunization Adult Patients (1 - Risk 50-74 years 1-dose series) 2011 Zoster Vaccines (1 of 2) 2011 Hepatitis B Vaccines (1 of 3 - Risk 3-dose series) 2021 Depression Screening 02/25/2024 HIV Screening 09/28/2024 Hepatitis C Screening 09/28/2024 Social Influencers of Health Screening 09/28/2024 COVID-19 Vaccine ( season) 2024 03/04/2022, 10/08/2021, 06/21/2020, Additional history exists DTaP,Tdap,and Td Vaccines (2 - Td or Tdap) 05/25/2025 05/26/2015 Cholesterol Screening (Lipid Panel) 09/02/2028 09/03/2023 Meningococcal ACWY Vaccine Aged Out 03/17/2019 N o longer eligible based on patient's [...] to complete this topic RSV Immunization Patients Under 20 months Aged Out No longer eligible based on patient's age to complete this topic Varicella Vaccines Aged Out No longer eligible based on patient's age to complete this topic Insurance MEDICAID - [place] Care Teams Pie Baker Relationship Specialty Start Date End Date Conner Smith MD [address] [place] [id number] PCP - General Internal Medicine 09/28/24
--- OUTSIDE RECORDS SUMMARY | 2024-12-15 15:51 | XMS_ITS | Clinical Summary ---
Author Organization [facility] Address [address] [place] [address] Care Team Providers Care Temporary Staff Accountant Name Role Phone Conner Smith Primary Care [...] complete this topic Procedures * Due to [place] state law, this organization might not be sharing negative HIV tests. Procedure Name Priority Date/Time Associated Diagnosis Comments COLONOSCOPY 06/27/2020 PAP Routine 03/23/2019 2:47 PM EST Atypical squamous cells of undetermined significance on cytologic smear of cervix (ASC-US) from Last 3 Months or Most Recently Relevant to Health Maintenance Results * Due to [place] law, this organization might not be sharing negative HIV tests. * COLONOSCOPY (06/27/2020) Narrative Procedure Note Charli Jaramillo MD - 06/27/2020 2:09 PM EDT [facility] Patient Name: Rosemary Mcgovern Procedure Date: 06/27/2020 2:09 PM Date of : 1960 Age: 60 Room: [place] [address] Gender: Female Note Status: Finalized Attending MD: [...] PM EST) Specimen Adequacy Satisfactory for evaluation [facility] MANUAL 03/31/2019 1:56 PM EST [facility] ANATOMIC PATHOLOGY - [facility] Pathologist Cytology Interpretation Negative for intraepithelial lesion or malignancy. [facility]UAL 03/31/2019 1:56 PM EST [facility]AT[facility]OLOG[facility] - [facility] at 1356 EST Comment:This is the result o f a morphological screening test with an inherent possibility of a false negative interpretation. Wire Walker Statement This Pap test was examined by the ThinPrep Imaging System, [employer], [place], [place]. This Pap test was examined in accordance with the [facility] Cytopathology Laboratory written policy, which incorporates all CLIA mandates. Screening guidelines can be found in Am J Clin Pathol 2012;137:516-542. We endorse the practice guidelines developed by ASCCP and published in the Journal Lower Genital Tract Disease 17(5):S1-S27 (2013). [facility] 03/31/2019 1:56 PM EST [facility] - [facility] Clinical History ascus hpv + [facility]UAL 03/31/2019 1:56 PM EST [facility] - [facility] HPV High Risk DNA Subtypes NEGATIVE [facility] 03/31/2019 1:56 PM EST [facility] - [facility] Test Description Specimens were tested for high risk HPV using the FDA approved Digene Hybrid Capture II kit, in the Diagnostic Molecular Oncology Lab at [facility]. This test can detect HPV [...] abnormality. We endorse the recommendations of the [place] Society for Colposcopy and Cervical Pathology for management of pap test results, available at www.asccp.org. ASCCP guidelines also recommend HPV 16/18 genotyping in patients over the age of 30 who have had positive high risk HPV testing, but have a negative morphologic Pap test: (http://www.asccp .org/consensus.sh tml). [facility] MANUAL 03/31/2019 1:56 PM EST [facility] ANATOMIC PATHOLOGY - [facility] [employer] THREE ASR Disclaimer The performance characteristics of [...] to perform high complexity clinical laboratory testing. [facility] MANUAL 03/31/2019 1:56 PM EST [facility] - [facility] Resulting Agency Case was signed out at [facility], Department of Pathology, [employer] 3 CLIA [id number] [facility] MANUAL 03/31/2019 1:56 PM EST [facility] - [facility] Report Header Gynecologic Cytology Report Case: [id number] Authorizing Provider: Eva Mcclain MD Collected: 03/23/2019 1447 Ordering Location: [facility] Received: 03/23/[address] [place] [address] Obstetrics and Gynecology First Screen: Darrel Jones Rescreen: Augustin Morealnd Specimen: Screening ThinPrep Pap, Cervix/Endocervix 03/31/2019 1:56 PM EST [facility] - [facility] Brushing Cervix uteri structure / Unknown Non-Blood Collection / Unknown 03/23/2019 2:47 PM EST 03/23/2019 4:21 PM EST us Eva Mcclain MD LAB PATHOLOGY/CYTOLOGY ORDER HAYDEE Final Result [facility] - [facility] [address] [place] [address], from Last 3 Months or Most Recently Relevant to Health Maintenance Insurance Funding Options MARCELA [id number] Care Teams Temporary Staff Accountant Relationship Specialty Start Date End Date Conner Smith [address] [place] [id number] PCP - General Internal Medicine 09/15/19
--- OUTSIDE RECORDS SUMMARY | 2024-12-15 15:51 | XMS_ITS | Encounter Summary ---
Author Organization [employer] Address [address] [facility] 7t [place] [address] Care Team Providers Care Slip Laster Name Role Phone Conner Méndez MD Primary Care Provide r Reason for Visit * Reason Comments Med Refill Encounter Details Date Type Department Care Team (Late st Contact Info) Description 10/03/2023 Refill [facility] 230 [place], [place] [phone] Conner Méndez MD 230 [place], [place] [phone] Primary insomnia Social History Tobacco Use Types [...] Office Visit [facility] [address] [place] [address] Conner Méndez MD [address] [place] [address] documented as of this encounter Visit Diagnoses Diagnosis Primary insomnia Persistent disorder of initiating or maintaining sleep documented in this encounter Additional Health Concerns Assessment Noted Time PHQ-9 Depression Total Score: 4 09/02/19 24 10:34 AM EDT documented as of this encounter Care Teams Slip Laster Relationship Specialty Start Date End Date Conner Méndez MD [address] [place] [address] PCP - General Internal Medicine 12/08/18 documented as of this encounter
--- OUTSIDE RECORDS SUMMARY | 2024-12-15 15:51 | XMS_ITS | Encounter Summary ---
Author Organization [employer] Address [address] [facility] 7t [place] [address] Care Team Providers Care Customer Counter Associate Name Role Phone Conner Méndez MD Primary Care Provide r Reason for Visit * Reason Comments Med Change Request Encounter Details Date Type Department Care Team (Late st Contact Info) Description 09/19/2022 Refill [facility] 230 [place], [place] [phone] Conner Méndez MD 230 [place], [place] [phone] Papanicolaou smear of vagina with atypical squamous [...] Description 12/21/2024 10:15 AM EDT Office Visit [facility] [address] [place] [address] Conner Méndez MD [address] [place] [address] documented as of this encounter Visit Diagnoses Diagnosis Papanicolaou smear of vagina with atypical squamous cells of undetermined significance (ASC-US) documented in this encounter Additional Health Concerns Assessment Noted Time PHQ-9 Depression Total Score: 0 09/20/19 23 9:04 AM EDT documented as of this encounter Care Teams Customer Counter Associate Relationship Specialty Start Date End Date Conner Méndez MD [address] [place] [address] PCP - General Internal Medicine 12/08/18 documented as of this encounter
--- OUTSIDE RECORDS SUMMARY | 2024-12-15 15:51 | XMS_ITS | Clinical Summary ---
Author Organization [employer] Address [address] [place] [address] Care Team Providers Care Senior Software Quality Engineer Name Role Phone Conner Méndez MD Primary [...] past with knee injections, Was seen at [facility], they recommended surgical intervention per her report but if not to try PT. Previous visit she told me she wanted to be referred to a local environmental specialist She was last seen at [facility] they recommended steroid injections or consideration of surgical intervention. She was seen last 09/2023 and received a steroid injection. Assessment & Plan (09/02/2023 10:54 AM EDT): Pt with chronic bilateral knee pain, has done well in the past with knee injections, Was seen at [facility], they recommended surgical intervention per her report but if not to try PT. Previous visit she told me she wanted to be referred to a local environmental specialist She was last seen at [facility] they recommended steroid injections or consideration of surgical intervention. Pt wanted to go to PT Today she tells me she is ready to go back Assessment & Plan (02/04/2023 1:43 PM EST): Pt with chronic bilateral knee pain, has done well in the past with knee injections, Was seen at [facility], they recommended surgical intervention per her report but if not to try PT. Previous visit she told me she wanted to be referred to a local environmental specialist She was last seen at [facility] they recommended steroid injections or consideration of surgical intervention. Pt wanted to go to PT Pt wants to wait until after her cataract surgery Preoperative examination 01/14/2023 Assessment & Plan (01/14/2023 1:45 PM EST): Patient is here for a preoperative exam Patient is scheduled for:Cataract Surgery Right Eye February 06, 2023 And Left Eye 03/01/2023 [facility] [address] [place], [place] [id number] EXT [phone] ([place]) Date of procedure: February 06, 2023 type [...] for a follow up Patient seen at [facility] 11/07/2023 where she presented with right sided [...] to go. She was seen 03/15/[address] [facility] in [place] for Low back pain, they recommended evaluation at [facility] for PT and consideration of steroid injections Last visit she told me she was not interested in injections or surgical interventions She is undergoing PT with good results, would like to continue Assessment & Plan (03/16/2024 1:14 PM EST): Telehealth Patient seen at [facility] 11/07/2023 where she presented with right sided [...] received PT. Previously pt was referred to [facility] for evaluation, they tried contacting pt to [...] EST): Patient here after recently seen at [facility] 11/07/2023 where she presented with right sided [...] EST): Patient here after recently seen at [facility] where she presented with left sided back [...] EDT): Patient here after recently seen at [facility] where she presented with left sided back [...] done, she then proceeded to travel to [facility] before despite my recommendation not to travel until cardiac work up completed. She finally saw the director engineering 05/03/2019 who recommended a stress test, an ECHO and a Holter monitor. Pt did not do any of the tests because back then she was concerned about going to the Hospital due to Covid-19. She subsequently brought me the results of a stress test and [place] both of which were normal Previously I explained to her that given that she was complaining of chest pain she needed to be re-evaluated. She had an appointment with Cardiology but she decided to re-schedule it for April., and subsequently missed Last visit again I discussed with her and her daughter the importance of seeing the director engineering due to her c/o intermittent chest pain. [...] done, she then proceeded to travel to [facility] before despite my recommendation not to travel until cardiac work up completed. She finally saw the director engineering 05/03/2019 who recommended a stress test, an ECHO and a Holter monitor. Pt did not do any of the tests because back then she was concerned about going to the Hospital due to Covid-19. She subsequently brought me the results of a stress test and ECHO [place] both of which were normal Last visit I explained to her that given that she was complaining of chest pain she needed to be re-evaluated. She had an appointment with Cardiology but today she tells me she decided to re-schedule it for April. Again I discussed with her and her daughter the importance of seeing the director engineering due to her c/o intermittent chest pain. [...] done, she then proceeded to travel to [facility] before despite my recommendation not to travel until cardiac work up completed. She finally saw the director engineering 05/03/2019 who recommended a stress test, an ECHO and a Holter monitor. Pt did not do any of the tests because back then she was concerned about going to the Hospital due to Covid-19. She subsequently brought me the results of a stress test and ECHO [place] were [place] both of which were normal Last visit I explained to her that given that she was complaining of chest pain she needed to be re-evaluated. She had an appointment with Cardiology but today she tells me she decided to re-schedule it for April. Again I discussed with her and her daughter the importance of seeing the director engineering due to her c/o intermittent chest pain. [...] work up completed. She finally saw the director engineering 05/03/2019 who recommended a stress test, an ECHO and a Holter monitor. Pt did not do any of the tests because back then she was concerned about going to the Hospital due to Covid-19. She subsequently brought me the results of a stress test and ECHO [place] both of which were normal Last visit I explained to her that given that she was complaining of chest pain she needed to be re-evaluated. She had an appointment with Cardiology but today she tells me she decided to re-schedule it for April. Again I discussed with her and her daughter the importance of seeing the director engineering due to her c/o intermittent chest pain [...] done, she then proceeded to travel to [facility] before despite my recommendation not to travel until cardiac work up completed. She finally saw the director engineering 05/03/2019 who recommended a stress test, an ECHO and a Holter monitor. Pt did not do any of the tests because back then she was concerned about going to the Hospital due to Covid-19. She subsequently brought me the results of a stress test and ECHO [place] were [place] both of which were normal Today [...] she then proceeded to travel to [facility] before despite my recommendation not to travel until cardiac work up completed. She finally saw the director engineering 05/03/2019 who recommended a stress test, an ECHO and a Holter monitor. Pt did not do any of the tests because back then she was concerned about going to the Hospital due to Covid-19. She subsequently brought me the results of a stress test and ECHO [place] were [place] both of which were normal Today I have explained to her that given that she is complaining of chest pain she needs to be evaluated to do an EKG and have a physical examination. I have asked her to come in to our [facility] or to present herself to her nearest ER. She told me she would come to our [facility] on Friday I explained to [...] Propranolol as needed She was referred to [facility] but patient decided she was [...] palpitations, dose lowered again with good results [facility] care 02/25/2022 Assessment & Plan (09/23/2024 11:04 AM EDT): Mammogram: 11/20/2023 Normal. Needs a repeat Pap Smear: ABNL: 11/25/2017 + hpv Repeat 03/23/2019 NEGATIVE HPV NEGATIVE at [facility], repeat here 07/12/2020 Colonoscopy: 06/27/2020 Assessment & Plan (02/05/2024 1:26 PM EST): Mammogram: 11/20/2023 Normal. Pap Smear: ABNL: 11/25/2017 + hpv Repeat 03/23/2019 NEGATIVE HPV NEGATIVE at [facility], repeat here 07/12/2020 Colonoscopy: 06/27/2020 Assessment & Plan (09/02/2023 9:19 AM EDT): Mammogram: 10/08/2022 Normal. Will repeat Pap Smear: ABNL: 11/25/2017 + hpv Repeat 03/23/2019 NEGATIVE HPV NEGATIVE at [facility], repeat here 07/12/2020 Colonoscopy: 06/27/2020 Assessment & Plan (03/25/2023 11:24 AM EST): Mammogram: 10/08/2022 Normal Pap Smear: ABNL: 11/25/2017 + hpv Repeat 03/23/2019 NEGATIVE HPV NEGATIVE at [facility], repeat here 07/12/2020 Colonoscopy: 06/27/2020 Assessment & Plan (02/25/2022 2:39 PM EST): Mammogram: 10/02/2021 Normal Pap Smear: ABNL: 11/25/2017 + hpv Repeat 03/23/2019 NEGATIVE HPV NEGATIVE at [facility], repeat here 07/12/2020 Colonoscopy: 06/27/2020 Combined [...] her parotids negative. seen by ENT at [facility], 01/04/2021 ENT recommended No further follow [...] mg po daily Might consider referral to [facility] Dry eye syndrome of both eyes 06/08/2018 [...] (09/19/2022 5:42 PM EDT): Used to follow w/Manager Science in [facility] We received a Pap smear report from 03/23/2019 that was NEGATIVE with HPV negative as well Pt was seen by Julisa Mcknight repeat Pap 08/07/2021 showed ASCUS HPV neg. Seen by Dr Oliverio Camarillo for colposcopy completed 09/07/2021 Assessment & Plan (02/25/2022 2:22 PM EST): Used to follow w/Manager Science in [facility] We received a Pap smear report from [...] past with knee injections, Was seen at [facility], they recommended surgical intervention per her report but if not to try PT. Previous visit she told me she wanted to be referred to a local environmental specialist She was last seen at [facility] they recommended steroid injections or consideration of surgical intervention. Pt seeing a different orthopaedist now [facility] seen 07/14/2024 received steroid injection Assessment & Plan (02/04/2023 1:42 PM EST): Pt with chronic bilateral knee pain, has done well in the past with knee injections, Was seen at [facility], they recommended surgical intervention per her report but if not to try PT. Previous visit she told me she wanted to be referred to a local environmental specialist She was last seen at [facility] they recommended steroid injections or consideration of surgical intervention. Pt wanted to go to PT, today she tells me she wanted to wait until after her cataract surgery Assessment & Plan (12/24/2022 10:16 AM EDT): Pt with chronic bilateral knee pain, has done well in the past with knee injections, Was seen at [facility], they recommended surgical intervention per her report but if not to try PT. Previous visit she told me she wanted to be referred to a local environmental specialist She was last seen at [facility] they recommended steroid injections or consideration of surgical intervention. Pt wants to go to PT Assessment & Plan (02/25/2022 2:21 PM EST): Pt with chronic bilateral knee pain, has done well in the past with knee injections, Was seen at [facility], they recommended surgical intervention per her report but if not to try PT. Previous visit she told me she wanted to be referred to a local environmental specialist She was referred to Dr Liao at [facility]. Encounters Date Type Department Care Team Description 12/07/2024 Orders Only [facility] External Provider, [facility] 12/01/2024 10:15 AM EDT Office Visit [facility] [address] [place] [phone] Rupal Jain, BREAK OUT WORKER Mastalgia (Primary Dx); Subcutaneous mass; Encounter for immunization 12/01/2024 Refill [facility] [address] [place] [phone] Conner Méndez MD Chronic neck pain 12/01/2024 Travel 11/30/2024 Telephone [facility] [address] [place] [address] Conner Méndez MD chartprep 11/25/2024 Telephone [facility] [address] [place] [address] Conner Méndez MD Referral 11/21/2024 Refill [facility] [address] [place] [address] Conner Méndez MD Primary insomnia 09/23/2024 10:15 AM EDT Office Visit [facility] [address] [place] [address] Conner Méndez MD Chronic neck pain (Primary Dx); Primary osteoarthritis of right knee; Chest discomfort; Gastroesophageal reflux disease without esophagitis; Dysphagia, unspecified type; Pain around toenail, right foot; Preventative health care; Breast cancer screening by mammogram 09/23/2024 Travel 09/22/2024 Telephone [facility] [address] [place] [address] Conner Méndez MD CHART PREP from Last 3 Months Immunizations Immunization Administration [...] Description 12/21/2024 10:15 AM EDT Office Visit [facility] [address] [place], [place] [phone] Conner Méndez MD [address] [place] [address] Health Maintenance Due Date Last Done Comments [...] Procedure Name Priority Date/Time Associated Diagnosis Comments NM HEART PERFUSION SPECT STRESS AND REST Routine 12/07/2024 9:17 AM EDT ECG 12-LEAD Routine 09/28/2024 5:02 PM EDT [...] Recently Relevant to Health Maintenance Results * NM heart perfusion SPECT stress and rest (12/07/2024 9:17 AM EDT) Anatomical Region Laterality Modality Body Nuclear Medicine 12/07/2024 9:17 AM EDT Narrative 12/09/2024 4:26 PM EDT [place] [address] Nuclear Medicine Report Signed Patient: Rosemary Mcgovern MR#: [id number] 5 : 1960 Acct:[id number] Age/Sex: 64 / F ADM Date: 12/07/24 Loc: .[facility] Attending Dr: Tommy Wesley MD Ordering Physician: Tommy Wesley MD Date of Service: 12/07/24 Procedure(s): NM jackeline perf SPECT rest str Accession Number(s): [id number] cc: Conner Smith MD; Tommy Wesley MD Reason for Exam: ATYPICAL CHEST PAIN LEXISCAN STRESS Lexiscan Myocardial perfusion study Indication: Chest pain Technique: The patient was brought in for a Lexiscan perfusion study on 12/07/2024 and was injected 0.4 mg of Lexiscan intravenously. Within a minute of this injection 25 mCi of sestamibi was given intravenously. Images were obtained using the SPECT gamma camera interlaced with the gating device. Images were obtained in supine position. Resting perfusion study was performed on 12/09/2024. Patient was administered 25 mCi of sestamibi intravenously at rest. Images were then obtained in supine position. Total DLP 107 mGy-cm. Images were processed with the software and compared side to side in short axis, horizontal long axis and vertical long axis views. Findings: Raw aquisition reviewed. The stress perfusion study showed no significant perfusion abnormality. Both uncorrected as well as CT attenuation corrected images were reviewed. The gated study shows normal LV systolic function with calculated LVEF of 62%, but visually higher. LV cavity is normal in size. The gated study shows normal wall thickening and contraction of segments. Resting study shows mildly decreased tracer uptake in the mid to distal inferolateral wall. Could be artifactual finding. Gating at rest reveals normal wall motion with ejection fraction at 56%. The findings are consistent with no clear reversible or fixed perfusion abnormality. NM/NM jackeline perf SPECT rest str Impression: 1. Myocardial perfusion imaging study shows probably normal myocardial perfusion. 2. Gated LVEF is 62% during stress and 56% during rest; visually higher. 3. Transient ischemic dilatation not present. EKG component of the test reported separately. Electronically signed by: Tony Fu MD 12/09/2024 04:23 PM EDT Dictated By: Tony Fu MD Signed By: <Electronically signed by Tony Fu MD in OV> 12/09/24 1623 DD/ 0917 TD/TT: 12/09/24 1100 Utility Helicopter Repairer: Procedure Note Donotuseinterpreter, Image - 12/09/2024 [place] [address] Nuclear Medicine Report Signed Patient: Iain Mcgovern#: [id number] 5 : 1960cct:[id number] Age/Sex: 64 / FADM Date: 12/07/24 Loc: .[facility] Attending Dr: Tommy Wesley MD Ordering Physician: Tommy Wesley MD Date of Service: 12/07/24 Procedure(s): NM jackeline perf SPECT rest str Accession Number(s): [id number] cc: Conner Smith MD; Tommy Wesley MD Reason for Exam: ATYPICAL CHEST PAIN LEXISCAN STRESS Lexiscan Myocardial perfusion study Indication: Chest pain Technique: The patient was brought in for a Lexiscan perfusion study on 12/07/2024 and was injected 0.4 mg of Lexiscan intravenously. Within a minute of this injection 25 mCi of sestamibi was given intravenously. Images were obtained using the SPECT gamma camera interlaced with the gating device. Images were obtained in supine position. Resting perfusion study was performed on 12/09/2024. Patient was administered 25 mCi of sestamibi intravenously at rest. Images were then obtained in supine position. Total DLP 107 mGy-cm. Images were processed with the software and compared side to side in short axis, horizontal long axis and vertical long axis views. Findings: Raw aquisition reviewed. The stress perfusion study showed no significant perfusion abnormality. Both uncorrected as well as CT attenuation corrected images were reviewed. The gated study shows normal LV systolic function with calculated LVEF of 62%, but visually higher. LV cavity is normal in size. The gated study shows normal wall thickening and contraction of segments. Resting study shows mildly decreased tracer uptake in the mid to distal inferolateral wall. Could be artifactual finding. Gating at rest reveals normal wall motion with ejection fraction at 56%. The findings are consistent with no clear reversible or fixed perfusion abnormality. NM/NM jackeline perf SPECT rest str Impression: 1. Myocardial perfusion imaging study shows probably normal myocardial perfusion. 2. Gated LVEF is 62% during stress and 56% during rest; visually higher. 3. Transient ischemic dilatation not present. EKG component of the test reported separately. Electronically signed by: Tony Fu MD 12/09/2024 04:23 PM EDT Dictated By: Tony Fu MD Signed By: <Electronically signed by Tony Fu MD inOV> 12/09/24 1623 DD/ 0917 TD/TT: 12/09/24 1100 Utility Helicopter Repairer: [facility] External Provider IMG NM PROCEDURES Final Result * ECG 12 lead (09/28/2024 5:02 PM EDT) Narrative Conner Méndez MD - 09/28/2024 5:02 PM EDT NSR, no acute st t changes Conner Guerin MD ECG ORDERABLES Final Result * BI Mammogram Screening Tomosynthesis Bilateral (11/20/2023 4:20 PM EDT) Anatomical Region Laterality Modality Breast Bilateral Mammography 11/20/2023 4:20 PM EDT Narrative 12/02/2023 5:55 PM EDT [facility] [address] [place] [address] Mammography Report Signed Patient: Rosemary Mcgovern MR#: [id number] 5 : 1960 Acct:[id number] Age/Sex: 63 / F ADM Date: 11/20/23 Loc: HO.MAMMO Attending Dr: Conner Smith MD Ordering Physician: Conner Smith MD Resu lts: 1Negative Date of Service: 11/20/23 Follow Up: 1 Year From Orig inal Mammogram Procedure(s): MM tomosynthesis screening BI Accession Number(s): [id number] cc: Conner Smith MD EXAMINATION: MM SCREENING [...] 12/02/23 1752 DD/ 1620 TD/TT: 11/20/23 1631 Utility Helicopter Repairer: Procedure Note Donotuseinterpreter, Image - 12/02/2023 [facility] [address] [place] [address] Dr. Luo, MARCELA [address] Mammography Report Signed Patient: Cesar McgovernR#: [id number] 5 : 1960cct:[id number] Age/Sex: 63 / FADM Date: 11/20/23 Loc: HO.MAMMO Attending Dr: Conner Smith MD Ordering Physician: Conner Smith MDResu lts: 1Negative Date of Service: 11/20/23Follow Up: 1 Year From Orig ina Mammogram Procedure(s): MM tomosynthesis screening BI Accession Number(s): [id number] cc: Conner Smith MD EXAMINATION: MM SCREENING [...] 12/02/23 1752 DD/ 1620 TD/TT: 11/20/23 1631 Utility Helicopter Repairer: us Conner Guerin MD IMG BI PROCEDURES Theron shahrzad Result - Final * Lipid Panel, Standard (09/03/2023 10:21 AM EDT) Triglycerides 65 <150 mg/dL [facility] Comment:Desirable Triglyceri de: less than 150 mg/dLBorderline High Triglyceride 150-199 mg/dLHigh Triglyceride: 200-499 mg/dLVery High Triglyceride: greater than or equal to 5OO mg/dL Cholesterol 176 <200 mg/dL [facility] Comment:Desirable Cholestero l: less than 200 mg/dLBorderline High Cholesterol: 200-239 mg/dLHigh Cholesterol: greater than 239 mg/dL LDL Cholesterol Calculated 98 <100 mg/dL [facility] Comment:Desirable LDL: less than 100 mg/dLNear Optimal/Above Optimal LDL: 110- 129 mg/dLBorderline High LDL: 130-159 mg/dLHigh LDL: 160-189 mg/dLVery High LDL: greater than or equal to 190 mg/dL HDL Cholesterol 65 >40 mg/dL [facility] Comment:Desirable HDL: great er than 40 mg/dL Note: This HDL assay may give artificially low results in patients with liver disease. Blood Venous blood specimen / Unknown 09/03/2023 10:21 AM EDT 09/03/2023 12:58 PM EDT us Conner Guerin MD LAB BLOOD ORDERABLES Final Result [facility] [address] [place] [phone] * (ABNORMAL) THINPREP TIS PAP AND HPV mRNA E6/E7 WITH REFLEX TO HPV 16,18/45 (08/07/2021 1:17 PM EDT) Clinical Information: [facility] COMMENT SEE COMMENT [facility]OUND[facility] ON [...] has been evaluated with computer assisted technology. [facility] Fish Farmer : SEE COMMENT [facility] Comment: ORAL FERRO(ASCP) CT screening location: [place] [address] General Categorization: EPITHELIAL CELL ABNORMALITY(A) [facility] HPV nRNA E6/E7 Not Detected Not Detected [facility] Comment: Methodology: Dock Operations Supervisor-Mediated Amplification This assay detects E6/E7 viral messenger RNA (mRNA) from 14 high-risk HPV types (16,18,31,33,35,39,45,51,52,56,58,59,66,68). Cervical sources are required for HPV testing. If a vaginal source from a patient who has had a total hysterectomy with removal of cervix was submitted, please contact the testing laboratory for alternative testing options. For additional information, please refer to http://education.Nuserv/faq/CBE893z6 (This link if provided for information/ educational purposes only.) Interpretation/R esult: SEE COMMENT(A) [facility] Comment: Atypical Squamous Cells of Undetermined Significance (ASC-US) Atrophic pattern; predominantly parabasal cells LMP: [facility] PATHOLOGIST: SEE COMMENT [facility] Comment: Myrna Ng MD, PhD, Board Certified in Anatomic and Clinical Pathology (electronic signature) Consulting Pathologist [facility] [address] [place] [address] Prev. BX: 2018 LEEP: EMILIANO 3 [facility] Prev. PAP: NIL/NEG [facility] SOURCE: None given [facility] Statement Of Adequacy: SATISFACTORY FOR EVALUATION [facility] 08/07/2021 1:17 PM EDT Julisa HOWE LAB PATHOLOGY ORDERABLES Final Result [facility] [address] * Colonoscopy (06/27/2020) Colonoscopy Normal Normal 06/27/2020 Narrative Kady Linn - 06/27/2020 10:58 AM EDT Recommended 10 year follow up ( see scanned notes) us Historical Provider HEALTH MAINTENANCE Edited Result - Final from Last 3 Months or Most Recently Relevant to Health Maintenance Insurance [place] [facility] STAND ADULT Care Teams Senior Software Quality Engineer Relationship Specialty Start Date End Date Conner Méndez MD [address] [place] [phone] PCP - General Internal Medicine 12/08/18
--- OUTSIDE RECORDS SUMMARY | 2024-12-15 15:51 | XMS_ITS | Encounter Summary ---
Author Organization [employer] Address 75 [facility] 7t [place] [address] Care Team Providers Care Project Developer Name Role Phone Conner Méndez MD Primary Care Provide r Encounter Details Date Type Department Care Team (Latest Contact Info) Description 08/01/2020 Abstract [facility] CONVERSIONS Dental, Provider, DDS Social History Tobacco [...] Description 12/21/2024 10:15 AM EDT Office Visit [facility] MEDICINE [address] [place] [address] Conner Méndez MD [address] [place] [address] documented as of this encounter Visit Diagnoses Not on filedocumented in this encounter Care Teams Project Developer Relationship Specialty Start Date End Date Conner Méndez MD [address] [place] [address] PCP - General Internal Medicine 12/08/18 documented as of this encounter
--- OUTSIDE RECORDS SUMMARY | 2024-12-15 15:51 | XMS_ITS | Encounter Summary ---
Author Organization [employer] Address 75 [facility] 7t [place] [address] Care Team Providers Care Pad Assembler Name Role Phone oCnner Méndez MD Primary Care Provide r Encounter Details Date Type Department Care Team ([facility] Contact Info) Description 06/27/2022 Abstract [facility] [address] [place] [address] [phone] Conner Méndez MD [address] [place] [address] [phone] Social History Tobacco Use Types Packs/Day Years [...] Encounters Date Type Department Care Team (Late Contact Info) Description 12/21/2024 10:15 AM EDT Office Visit [facility] [address] [place] [address] [phone] Conner Méndez MD [address] [place], [place] [phone] documented as of this encounter Procedures Procedure [...] on filedocumented in this encounter Care Teams Pad Assembler Relationship Specialty Start Date End Date Conner Méndez MD [address] [place] [phone] PCP - General Internal Medicine 12/08/18 documented as of this encounter
--- OUTSIDE RECORDS SUMMARY | 2024-12-15 15:51 | XMS_ITS | Encounter Summary ---
Author Organization [employer] Address 75 [facility] 7t [place] [address] Care Team Providers Care Medical Librarian Name Role Phone Conner Méndez MD Primary Care Provide r Reason for Visit * Reason Comments Med Refill Encounter Details Date Type Department Care Team (Late st Contact Info) Description 06/30/2023 Refill [facility] MEDICINE [address] [place], [place] [phone] Bianka Salazar DO [address] [place], [place] [phone] Chronic neck pain Social History Tobacco Use [...] 10:15 AM EDT Office Visit [facility] MEDICINE [address] [place] [address] Conner Méndez MD [address] [place] [address] documented as of this encounter Visit Diagnoses Diagnosis Chronic neck pain Cervicalgia documented in this encounter Additional Health Concerns Assessment Noted Time PHQ-9 Depression Total Score: 0 09/20/19 23 9:04 AM EDT documented as of this encounter Care Teams Medical Librarian Relationship Specialty Start Date End Date Conner Méndez MD [address] [place] [address] PCP - General Internal Medicine 12/08/18 documented as of this encounter
--- OUTSIDE RECORDS SUMMARY | 2024-12-15 15:51 | XMS_ITS | Encounter Summary ---
Author Organization [employer] Address 75 [facility] 7t [place] [address] Care Team Providers Care Hardware Engineer Name Role Phone Conner Méndez MD Primary Care Provide r Encounter Details Date Type Department Care Team (Latest Contact Info) Description 01/10/2022 Abstract [facility] CONVERSIONS Dental, Provider, DDS Social [...] Description 12/21/2024 10:15 AM EDT Office Visit [facility] MEDICINE [address] [place] [address] Conner Méndez MD [address] [place] [phone] documented as of this encounter Visit Diagnoses Not on filedocumented in this encounter Care Teams Hardware Engineer Relationship Specialty Start Date End Date Conner Méndez MD [address] [place] [address] PCP - General Internal Medicine 12/08/18 documented as of this encounter
--- OUTSIDE RECORDS SUMMARY | 2024-12-15 15:51 | XMS_ITS | Encounter Summary ---
Author Organization [employer] Address 75 [facility] 7t [place] [address] Care Team Providers Care Principal Secretary Name Role Phone Conner Méndez MD Primary Care Provide r Encounter Details Date Type Department Care Team (Latest Contact Info) Description 10/27/[address] [facility] CONVERSIONS Dental, Provider, DDS Social History [...] Description 12/21/2024 10:15 AM EDT Office Visit [facility] MEDICINE [address] [place] [address] Conner Méndez MD [address] [place] [address] documented as of this encounter Visit Diagnoses Not on filedocumented in this encounter Care Teams Principal Secretary Relationship Specialty Start Date End Date Conner Méndez MD [address] [place] [address] PCP - General Internal Medicine 12/08/18 documented as of this encounter
== END 2024-12-15 11:29 | disposition home or self-care (01) ==
LOC: HO.MAMMO 11:28
PROVIDERS: PCP Internal Medicine; Visit Provider Internal Medicine
DX: N64.4 Mastodynia (principal); R22.9 Localized swelling, mass and lump, unspecified
CPT/HCPCS: 76642; 77062; 77066

== ENCOUNTER → 2024-12-15 11:30 | Outpatient (BNV) | payer MEDICAID, SELFPAY | PROVIDERS: PCP Internal Medicine; Visit Provider Internal Medicine | DX: N64.4 Mastodynia (principal); N64.52 Nipple discharge | CPT/HCPCS: 76642; 77062; 77066 ==

== ENCOUNTER 2024-12-21 11:02 | Outpatient (REF) | payer MEDICAID, SELFPAY ==
--- OUTSIDE RECORDS SUMMARY | 2024-12-21 10:15 | XMS_ITS | Encounter Summary ---
Author Organization [employer] Address 75 [facility] 7t [place] [address] Care Team Providers Care Elevator Technician Name Role Phone Conner Méndez MD Primary Care Provide r Encounter Details Date Type Department Care Team (Late st Contact Info) Description 12/21/2024 10:15 AM EDT Office Visit [facility] MEDICINE [address] [place], [place] [phone] Conner Méndez MD [address] [place], [place] [phone] Chest discomfort (Primary Dx); Gastroesophageal reflux disease without esophagitis; Chronic pain of both knees; Acquired hypothyroidism; Preventative health care; Papanicolaou smear of vagina with atypical squamous cells of undetermined significance (ASC-US); Chronic neck pain; Anxiety; Primary hypertension; Primary insomnia Social History Tobacco Use Types [...] Sign Reading Time Taken Comments Blood Pressure 110/60 12/21/2024 10:11 AM EDT Pulse 97 12/21/2024 10:11 AM EDT Temperature 36.1 C (97 F) 12/21/2024 10:11 AM EDT Respiratory Rate 20 12/21/2024 10:1 1 AM EDT Oxygen Saturation 99% 12/21/2024 10: 11 AM EDT Inhaled Oxygen Concentration - - Weight 67.5 kg (148 lb 12.8 oz) 025 10:11 AM EDT Height 147.3 cm (4' 10 ) 12/21/2024 10: 11 AM EDT Body Mass Index 31.1 12/21/2024 10:11 AM EDT documented in this encounter Progress Notes * Conner Guerin MD - 12/21/2024 10:15 AM EDT NELY Mcgovern is a 64 y.o. female who presents for No chief complaint on file.. Patient here for a routine follow up. She is leaving to [facility] 01/04/2025 and will not be back until 03/10/2025. She had an appointment for the Barium Swallow for 01/19/2025 but because she is leaving to [facility] is not going to keep it. She is requesting 3 months supply of medications Review of Systems Constitutional: Negative for fever. HENT: Negative for sore throat. Respiratory: Negative for cough and shortness of breath. Cardiovascular: Negative for chest pain. Gastrointestinal: Negative for abdominal pain. Neurological: Negative for headaches. Allergies[1] OBJECTIVE Vitals: 12/21/24 1011 BP: 110/60 BP Location: Left arm Patient Position: Sitting BP Cuff Size: Large adult Pulse: 97 Resp: 20 Temp: 97 ??F (36.1 ??C) TempSrc: Temporal SpO2: 99% Weight: 148 lb 12.8 oz (67.5 kg) Height: 4' 10 (1.473 m) Physical Exam Vitals reviewed. Constitutional: Appearance: Normal appearance. HENT: Head: Normocephalic and atraumatic. Right Ear: External ear normal. Left Ear: External ear normal. Nose: Nose normal. Mouth/Throat: Mouth: Mucous membranes are moist. Eyes: Conjunctiva/sclera: Conjunctivae normal. Cardiovascular: Rate and Rhythm: Normal rate and regular rhythm. Pulmonary: Effort: Pulmonary effort is normal. Breath sounds: Normal breath sounds. Skin: General: Skin is warm. Neurological: Mental Status: She is alert. Mental status is at baseline. Assessment/Plan Problem List Items Addressed This Visit Chest discomfort - Primary Patient here for a follow up Patient [...] done, she then proceeded to travel to [facility] before despite my recommendation not to travel until cardiac work up completed. She finally saw the sports doctor 05/03/2019 who recommended a stress test, an ECHO and a Holter monitor. Pt did not do any of the tests because back then she was concerned about going to the Hospital due to Covid-19. She subsequently brought me the results of a stress test and E[place] both of which were normal Previously I explained to her that given that she was complaining of chest pain she needed to be re-evaluated. She had an appointment with Cardiology but she decided to re-schedule it for April., andsubsequently missed Last visit again I discussed with her and her daughter the importance of seeing the sports doctor due to her c/o intermittent chest pain. [...] any current chest pain at the moment Patient was finally seen by cardiology 10/01/2024. Dr Wesley recommended vasodilator stress test and ECHO This was done:12/09/2024 Impression: 1. Myocardial perfusion imaging study shows probably normal myocardial perfusion. 2. Gated LVEF is 62% during stress and 56% during rest; visually higher. 3. Transient ischemic dilatation not present. EKG component of the test reported separately. Relevant Medications propranolol (Inderal) 10 MG tablet Gastroesophageal reflux disease without esophagitis Pt here for a f/u with previous c/o GERD despite using Omeprazole now up to 40 mg po daily Pt also c/o like food gets stuck on her throat. Last visit I recommended a Barium Swallow, and GI consult to consider EGD Barium Swallow was scheduled for 01/19/2025 and GI appointment for 03/21/2025 Pt has not lost any weight, denies any painful swallowing. Pt already purchased her tickets to [place] and wants to reschedule her barium swallow appointment. Contacted radiology who gave her a new appointment for 03/2025. She intends to be back before she has to see GI 03/21/2025 Relevant Medications calcium carbonate (Os-Nehemias) 1250 (500 Ca) MG tablet Multiple Vitamin (Daily-Brent[place] Multivitamin) tablet propranolol (Inderal) 10 MG tablet Bilateral knee pain Pt with chronic bilateral knee pain, has done well in the past with knee injections, Was seen at [facility], they recommended surgical intervention per her report but if not to try PT. Previous visit she told me she wanted to be referred to a local um specialist She was previously seen at [facility] they recommended steroid injections or consideration of surgical intervention. She was seen last by [facility] Orthopaedic bulger on 12/17/2024 and received a steroid injection. Relevant Medications meloxicam (Mobic) 15 MG tablet cholecalciferol (D3-1000) 25 MCG (1000 UT) capsule Acquired hypothyroidism Patient doing well She is now on levothyroxine 75 mcg po daily Lab Results Component Value Date TSH 1.76 02/09/2024 Normal Continue with current regimen, repeat TFTs Relevant Medications levothyroxine (Synthroid, Levoxyl) 75 MCG tablet meloxicam (Mobic) 15 MG tablet propranolol (Inderal) 10 MG tablet Other Relevant Orders TSH with Reflex to Free T4 Preventative health care Mammogram: 12/15/2024 Normal. Pap Smear: ABNL: 11/25/2017 + hpv Repeat 03/23/2019 NEGATIVE HPV NEGATIVE at [facility], repeat here 07/12/2020 Colonoscopy: 06/27/2020 Papanicolaou smear of vagina with atypical squamous cells of undetermined significance (ASC-US) Relevant Medications calcium carbonate (Os-Nehemias) 1250 (500 Ca) MG tablet Chronic neck pain Relevant Medications Multiple Vitamin (Daily-Brenton Multivitamin) tablet meloxicam (Mobic) 15 MG tablet cholecalciferol (D3-1000) 25 MCG (1000 UT) capsule Anxiety Relevant Medications propranolol (Inderal) 10 MG tablet traZODone (Desyrel) 100 MG tablet Primary insomnia Relevant Medications rOPINIRole (Requip) 0.25 MG tablet traZODone (Desyrel) 100 MG tablet Other Visit Diagnoses Primary hypertension Relevant Medications propranolol (Inderal) 10 MG tablet No future appointments. [1] No Known Allergies documented in this encounter Miscellaneous Notes * Assessment & Plan Note - Conner Guerin MD - 12/21/2024 10:05 AM EDT Associated Problem(s): Preventative health care Mammogram: 12/15/2024 Normal. Pap Smear: ABNL: 11/25/2017 + hpv Repeat 03/23/2019 NEGATIVE HPV NEGATIVE at [facility], repeat here 07/12/2020 Colonoscopy: 06/27/2020 * Assessment & Plan Note - Conner Guerin MD - 12/21/2024 10:04 AM EDT Associated Problem(s): Acquired hypothyroidism Patient doing well She is now on levothyroxine 75 mcg po daily Lab Results Component Value Date TSH 1.76 02/09/2024 Normal Continue with current regimen, repeat TFTs * Assessment & Plan Note - Conner Guerin MD - 12/21/2024 10:03 AM EDT Associated Problem(s): Gastroesophageal reflux disease without esophagitis Pt here for a f/u with previous c/o GERD despite using Omeprazole now up to 40 mg po daily Pt also c/o like food gets stuck on her throat. Last visit I recommended a Barium Swallow, and GI consult to consider EGD Barium Swallow was scheduled for 01/19/2025 and GI appointment for 03/21/2025 Pt has not lost any weight, denies any painful swallowing. Pt already purchased her tickets to [employer] and wants to reschedule her barium swallow appointment. Contacted radiology who gave her a new appointment for 03/2025. She intends to be back before she has to see GI 03/21/2025 * Assessment & Plan Note - Conner Guerin MD - 12/21/2024 10:01 AM EDT Associated Problem(s): Chest discomfort Patient here for a follow up Patient [...] done, she then proceeded to travel to [facility] before despite my recommendation not to travel until cardiac work up completed. She finally saw the sports doctor 05/03/2019 who recommended a stress test, an ECHO and a Holter monitor. Pt did not do any of the tests because back then she was concerned about going to the Hospital due to Covid-19. She subsequently brought me the results of a stress test and E[place] both of which were normal Previously I explained to her that given that she was complaining of chest pain she needed to be re-evaluated. She had an appointment with Cardiology but she decided to re-schedule it for April., andsubsequently missed Last visit again I discussed with her and her daughter the importance of seeing the sports doctor due to her c/o intermittent chest pain. [...] any current chest pain at the moment Patient was finally seen by cardiology 10/01/2024. Dr Wesley recommended vasodilator stress test and ECHO This was done:12/09/2024 Impression: 1. Myocardial perfusion imaging study shows probably normal myocardial perfusion. 2. Gated LVEF is 62% during stress and 56% during rest; visually higher. 3. Transient ischemic dilatation not present. EKG component of the test reported separately. * Assessment & Plan Note - Conner Guerin MD - 12/21/2024 9:58 AM EDT Associated Problem(s): Bilateral knee pain Pt with chronic bilateral knee pain, has done well in the past with knee injections, Was seen at [facility] ortho, they recommended surgical intervention per her report but if not to try PT. Previous visit she told me she wanted to be referred to a local um specialist She was previously seen at [facility] they recommended steroid injections or consideration of surgical intervention. She was seen last by [facility] Orthopaedic bulger on 12/17/2024 and received a steroid injection. documented in this encounter Plan of Treatment Scheduled Orders Name Type Priority Associated Diagnoses Orde r Schedule TSH with Reflex to Free T4 Lab Routine Acquired hypothyroidism Ordered: 12/21/2024 documented as of this encounter Visit Diagnoses Diagnosis Chest discomfort- Primary Other chest pain Gastroesophageal reflux disease without esophagitis Esophageal reflux Chronic pain of both knees Acquired hypothyroidism Unspecified hypothyroidism Preventative health care Routine general medical examination at a health care facility Papanicolaou smear of vagina with atypical squamous cells of undetermined significance (ASC-US) Chronic neck pain Cervicalgia Anxiety Anxiety state, unspecified Primary hypertension Unspecified essential hypertension Primary insomnia Persistent disorder of initiating or maintaining sleep documented in this encounter Additional Health Concerns Assessment Noted Time PHQ-9 Depression Total Score: 8 09/24/19 25 10:19 AM EDT documented as of this encounter Care Teams Elevator Technician Relationship Specialty Start Date End Date Conner Méndez MD [address] [place] [address] PCP - General Internal Medicine 12/08/18 documented as of this encounter
--- OUTSIDE RECORDS SUMMARY | 2024-12-21 14:15 | XMS_ITS | Encounter Summary ---
Author Organization [employer] Address 75 [facility] 7t [place] [address] Care Team Providers Care Senior Tax Specialist Name Role Phone Conner Méndez MD Primary Care Provide r Encounter Details Date Type Department Care Team ([facility] st Contact Info) Description 06/27/2022 Abstract [facility] MEDICINE [address] [place], [place] [phone] Conner Méndez MD [address] [place], [place] [phone] Social History Tobacco Use Types Packs/Day Years Used Date Smoking Tobacco: Never Smokeless Tobacco: Never Comments Unknown Sex and Gender Information Value Date Recorded Sex Assigned at Female 12/24/2021 10:31 AM EDT Legal Sex Female 10:31 AM EDT Gender Identity Female 12/24/2021 10:31 AM EDT Sexual Orientation Straight 12/24/2021 10 :31 AM EDT documented as of this encounter Plan of Treatment Not on file documented as of this encounter Procedures Procedure Name Priority Date/Time Associated Diagnosis Comments COLONOSCOPY Routine 06/27/2020 documented in this encounter Results * Colonoscopy (06/27/2020) Colonoscopy Normal Normal 06/27/2020 Kady Hurtado - 06/27/2020 10:58 AM EDT Recommended 10 year follow up ( see scanned notes) us Historical Provider HEALTH MAINTENANCE Edited Result - Final documented in this encounter Visit Diagnoses Not on filedocumented in this encounter Care Teams Senior Tax Specialist Relationship Specialty Start Date End Date Conner Méndez MD [address] [place] [phone] PCP - General Internal Medicine 12/08/18 documented as of this encounter
--- OUTSIDE RECORDS SUMMARY | 2024-12-21 14:15 | XMS_ITS | Encounter Summary ---
Author Organization [employer] Address 75 [facility] 7t [place] [address] Care Team Providers Care Slope Runner Name Role Phone Conner Méndez MD Primary Care Provide r Reason for Visit * Reason Comments Med Refill Encounter Details Date Type Department Care Team (Late st Contact Info) Description 06/30/2023 Refill [facility] MEDICINE [address] [place], [place] [phone] Bianka Salazar DO [address] [place], [place] [phone] Chronic neck pain Social History Tobacco Use [...] on file documented as of this encounter Visit Diagnoses Diagnosis Chronic neck pain Cervicalgia documented in this encounter Additional Health Concerns Assessment Noted Time PHQ-9 Depression Total Score: 0 09/20/19 23 9:04 AM EDT documented as of this encounter Care Teams Slope Runner Relationship Specialty Start Date End Date Conner Méndez MD [address] [place] [address] PCP - General Internal Medicine 12/08/18 documented as of this encounter
--- OUTSIDE RECORDS SUMMARY | 2024-12-21 14:15 | XMS_ITS | Encounter Summary ---
Author Organization [employer] Address 75 [facility] 7t [place] [address] Care Team Providers Care Tracer Powder Blender Name Role Phone Conner Méndez MD Primary Care Provide r Reason for Visit * Reason Comments Med Change Request Encounter Details Date Type Department Care Team (Late st Contact Info) Description 09/19/2022 Refill [facility] MEDICINE [address] [place], [place] [phone] Conner Méndez MD [address] [place], [place] [phone] Papanicolaou smear of vagina with atypical squamous [...] down Not at all 09/19/2022 9:04 AM EDT Anya Lopez MA Trouble concentrating on things, such as reading the newspaper or watching television Not at all 09/19/2022 9:04 AM EDT Anya Lopez MA Moving or speaking so slowly that other people could have noticed? Or the opposite - being so fidgety or restless that you have been moving around a lot more than usual. Not at all 09/19/2022 9:04 AM EDT Anya Lopez MA Thoughts that you would be better off or hurting yourself in some way Not at all 09/19/2022 9:04 AM EDT Anya Lopez MA Patient Health Questionnaire -9 Score 0 09/19/2022 9:04 AM EDT Anya Lopez MA documented as of this encounter Plan of Treatment Not on file documented as of this encounter Visit Diagnoses Diagnosis Papanicolaou smear of vagina with atypical squamous cells of undetermined significance (ASC-US) documented in this encounter Additional Health Concerns Assessment Noted Time PHQ-9 Depression Total Score: 0 09/20/19 9:04 AM EDT documented as of this encounter Care Teams Tracer Powder Blender Relationship Specialty Start Date End Date Conner Méndez MD [address] [place] [id number] PCP - General Internal Medicine 12/08/18 documented as of this encounter
--- OUTSIDE RECORDS SUMMARY | 2024-12-21 14:15 | XMS_ITS | Encounter Summary ---
Author Organization [employer] Address [address] [facility] [address] [place] [address] Care Team Providers Care Payroll Assistant Name Role Phone Conner Méndez MD Primary Care Provide r Reason for Visit * Reason Comments Med Refill Encounter Details Date Type Department Care Team (Late st Contact Info) Description 10/03/2023 Refill [facility] [address] [place], [place] [phone] Conner Méndez MD [address] [place], [place] [phone] Primary insomnia Social History Tobacco Use Types [...] documented as of this encounter Care Teams Payroll Assistant Relationship Specialty Start Date End Date Conner Méndez MD [address] [place] [id number] PCP - General Internal Medicine 12/08/18 documented as of this encounter
--- OUTSIDE RECORDS SUMMARY | 2024-12-21 14:15 | XMS_ITS | Encounter Summary ---
Author Organization [employer] Address [address] [facility] [address] [place] [address] Care Team Providers Care Senior Research Scientist Name Role Phone Conner Méndez MD Primary Care Provide r Reason for Visit * Reason Comments Med Refill Encounter Details Date Type Department Care Team (Late st Contact Info) Description 06/30/2023 Refill [facility] [address] [place], [place] [phone] Conner Méndez MD [address] [place], [place] [phone] Papanicolaou smear of vagina with atypical squamous [...] documented as of this encounter Care Teams Senior Research Scientist Relationship Specialty Start Date End Date Conner Méndez MD [address] [place] [phone] PCP - General Internal Medicine 12/08/18 documented as of this encounter
--- OUTSIDE RECORDS SUMMARY | 2024-12-21 14:15 | XMS_ITS | Encounter Summary ---
Author Organization [employer] Address [address] [facility] [address] [place] [address] Care Team Providers Care Optical Assistant Name Role Phone Conner Méndez MD Primary Care Provide r Encounter Details Date Type Department Care Team (Latest Contact Info) Description 08/01/2020 Abstract [facility] CONVERSIONS Dental, Provider, DDS Social History Tobacco [...] on filedocumented in this encounter Care Teams Optical Assistant Relationship Specialty Start Date End Date Conner Méndez MD [address] [place] [phone] PCP - General Internal Medicine 12/08/18 documented as of this encounter
--- OUTSIDE RECORDS SUMMARY | 2024-12-21 14:15 | XMS_ITS | Encounter Summary ---
Author Organization [employer] Address [address] [facility] [address] [place] [address] Care Team Providers Care Pipeline Controller Name Role Phone Conner Méndez MD Primary Care Provide r Encounter Details Date Type Department Care Team (Latest Contact Info) Description 10/27/2018 Abstract [facility] CONVERSIONS Dental, Provider, DDS Social [...] on filedocumented in this encounter Care Teams Pipeline Controller Relationship Specialty Start Date End Date Conner Méndez MD [address] [place] [phone] PCP - General Internal Medicine 12/08/18 documented as of this encounter
--- OUTSIDE RECORDS SUMMARY | 2024-12-21 14:15 | XMS_ITS | Encounter Summary ---
Author Organization [employer] Address [address] [facility] 7t [place] [address] Care Team Providers Care Automobile Or Truck Rental Dispatcher Name Role Phone Conner Méndez MD Primary Care Provide r Encounter Details Date Type Department Care Team (Latest Contact Info) Description 01/10/2022 Abstract [facility] [...] on filedocumented in this encounter Care Teams Automobile Or Truck Rental Dispatcher Relationship Specialty Start Date End Date Conner Méndez MD [address] [place] [phone] PCP - General Internal Medicine 12/08/18 documented as of this encounter
--- OUTSIDE RECORDS SUMMARY | 2024-12-21 14:16 | XMS_ITS | Encounter Summary ---
Author Organization [employer] Address [address] [facility] [address] [place] [address] Care Team Providers Care Porter Luggage Name Role Phone Conner Méndez MD Primary Care Provide r Encounter Details Date Type Department Care Team (Latest Contact Info) Description 12/21/2024 Travel Social History Tobacco Use Types Packs/Day Years Used Date Smoking Tobacco: Never Passive Smoke Exposure: Never Smokeless Tobacco: Never Depression Answer Date Recorded Patient Health Questionnaire-9 Score 8 09/23/2024 Patient Health Questionnaire-9 Score 8 09/23/2024 Last PHQ-9: Questionnaire Data Not on file 0 09/23/2024 Housing Stability Answer Date Recorded What is your housing situation today? I have carterashley yen 05/11/[address] you [...] documented as of this encounter Care Teams Porter [employer]gage Relationship Specialty Start Date End Date Conner Méndez MD [address] [place] [phone] PCP - General Internal Medicine 12/08/18 documented as of this encounter
--- OUTSIDE RECORDS SUMMARY | 2024-12-21 14:16 | XMS_ITS | Clinical Summary ---
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 SWALLOW WHOLE WITH WATER AND DO NOT BREAK, CRUSH, DISSOLVE OR CHEW 022 Active estradiol (Estrace) 0.1 MG/GM vaginal cream INSERT 1 GRAM VAGINALLY EVERY EVENING FOR 2 WKS THEN 1 GRAM VAGINALLY TWICE WEEKLY AFTERWARDS 022 Active Myrbetriq 25 MG 24 hr tablet Take 25 mg by mouth in the morning. 023 Active [employer] Lubricant Eye Drops 0.5 % ophthalmic solutionIndicatio ns:Dry eyes USE 3 TIMES A DAY TO AFFECTED EYE(S) 30 mL 11 024 Active omeprazole (PriLOSEC) [address] capsuleIndication s:Gastroesophagea l reflux disease without esophagitis Take 1 capsule (40 mg) by mouth before breakfast. Do not crush or chew. 30 capsule 3 025 2025 Active calcium carbonate (Os-Nehemias) 1250 (500 Ca) MG tabletIndications :Papanicolaou smear of vagina with atypical squamous cells of undetermined significance (ASC-US) Take 1 tab by mouth every day 90 tablet 3 025 Active Multiple Vitamin (Daily-Brenton Multivitamin) tabletIndications :Chronic neck pain Take 1 tablet by mouth in the morning. 90 tablet 1 025 Active levothyroxine (Synthroid, Levoxyl) 75 MCG tabletIndications :Acquired hypothyroidism Take 1 tablet (75 mcg) by mouth before breakfast. 90 tablet 1 025 Active meloxicam (Mobic) 15 MG tabletIndications :Chronic neck pain Take 1 tablet (15 mg) by mouth Once per day. 90 tablet 025 Active propranolol (Inderal) 10 MG tabletIndications :Anxiety,Primary hypertension TAKE 1/2 TABLET BY MOUTH TWICE A DAY 90 tablet 1 025 Active rOPINIRole (Requip) 0.25 MG tabletIndications :Restless Leg Syndrome Take 1 tablet (0.25 mg) by mouth at bedtime. 90 tablet 025 Active traZODone (Desyrel) 100 MG tabletIndications :Primary insomnia Take 1 tablet (100 mg) by mouth at bedtime. 90 tablet 1 025 Active cholecalciferol (D3-1000) 25 MCG (1000 UT) capsuleIndication s:Chronic neck pain Take 1 capsule (25 mcg) by mouth in the morning. 90 capsule 1 025 Active calcium carbonate (Os-Nehemias) 1250 (500 Ca) MG tabletIndications :Papanicolaou smear of vagina with atypical squamous cells of undetermined significance (ASC-US) Take 1 tab by mouth every day 90 tablet 3 023 2024 Discontinued(R eorder (will not trigger notification to Pharmacy)) Multiple Vitamin (Daily-Brenton Multivitamin) tabletIndications :Chronic neck pain Take 1 tablet by mouth in the morning. 90 tablet 1 025 2024 Discontinued(R eorder (will not trigger notification to Pharmacy)) cholecalciferol (D3-1000) 25 MCG (1000 UT) capsuleIndication s:Chronic neck pain Take 1 capsule (25 mcg) by mouth in the morning. 90 capsule 1 025 2024 Discontinued(R eorder (will not trigger notification to Pharmacy)) propranolol (Inderal) 10 MG tabletIndications :Anxiety,Primary hypertension TAKE 1/2 TABLET BY MOUTH TWICE A DAY 90 tablet 1 025 2024 Discontinued(R eorder (will not trigger notification to Pharmacy)) levothyroxine (Synthroid, Levoxyl) 75 MCG tabletIndications :Acquired hypothyroidism TAKE 1 TABLET BY MOUTH EVERY DAY BEFORE BREAKFAST 90 tablet 1 025 2024 Discontinued(R eorder (will not trigger notification to Pharmacy)) meloxicam (Mobic) 15 MG tabletIndications :Chronic neck pain TAKE 1 TABLET (15 MG) BY MOUTH DAILY NEEDED FOR MODERATE PAIN 90 tablet 025 2024 Discontinued rOPINIRole (Requip) 0.25 MG tabletIndications :Primary insomnia TAKE 1 TABLET BY MOUTH EVERYDAY AT BEDTIME 90 tablet 025 2024 Discontinued traZODone (Desyrel) 100 MG tabletIndications :Primary insomnia TAKE 1 TABLET BY MOUTH AT BEDTIME 30 tablet 3 025 2024 Discontinued(R eorder (will not trigger notification to Pharmacy)) rOPINIRole (Requip) 0.25 MG tabletIndications :Primary insomnia TAKE 1 TABLET BY MOUTH EVERYDAY AT BEDTIME 90 tablet 025 2024 Discontinued(R eorder (will not trigger notification to Pharmacy)) meloxicam (Mobic) 15 MG tabletIndications :Chronic neck pain TAKE 1 TABLET (15 MG) BY MOUTH DAILY NEEDED FOR MODERATE PAIN 90 tablet 025 2024 Discontinued(R eorder (will not trigger notification to Pharmacy)) Active Problems Problem Noted Date Diagnosed Date Gastroesophageal reflux disease without esophagi tis 09/23/2024 Assessment & Plan (12/21/2024 10:48 AM EDT): Pt here for a f/u with previous [...] swallowing. Pt already purchased her tickets to [employer] and wants to reschedule her barium swallow appointment. Contacted radiology who gave her a new appointment for 03/2025. She intends to be back before she has to see GI 03/21/2025 Assessment & Plan (09/23/2024 10:55 AM EDT): [...] Bilateral knee pain 02/04/2023 Assessment & Plan (12/21/2024 9:59 AM EDT): Pt with chronic bilateral knee pain, has done well in the past with knee injections, Was seen at [facility], they recommended surgical intervention per her report but if not to try PT. Previous visit she told me she wanted to be referred to a local auto wheel alignment specialist She was previously seen at [facility] they recommended steroid injections or consideration of surgical intervention. She was seen last by [facility] on 12/17/2024 and received a steroid injection. Assessment & Plan (02/05/2024 1:17 PM EST): Pt with chronic bilateral knee pain, has done well in the past with knee injections, Was seen at [facility], they recommended surgical intervention per her report but if not to try PT. Previous visit she told me she wanted to be referred to a local auto wheel alignment specialist She was last seen at [facility] they recommended steroid injections or consideration of surgical intervention. She was seen last 09/2023 and received a steroid injection. Assessment & Plan (09/02/2023 10:54 AM EDT): Pt with chronic bilateral knee pain, has done well in the past with knee injections, Was seen at [facility], they recommended surgical intervention per her report but if not to try PT. Previous visit she told me she wanted to be referred to a local auto wheel alignment specialist She was last seen at [facility] they recommended steroid injections or consideration of surgical intervention. Pt wanted to go to PT Today she tells me she is ready to go back Assessment & Plan (02/04/2023 1:43 PM EST): Pt with chronic bilateral knee pain, has done well in the past with knee injections, Was seen at [facility], they recommended surgical intervention per her report but if not to try PT. Previous visit she told me she wanted to be referred to a local auto wheel alignment specialist She was last seen at [facility] they recommended steroid injections or consideration of surgical intervention. Pt wanted to go to PT Pt wants to wait until after her cataract surgery Preoperative examination 01/14/2023 Assessment & Plan (01/14/2023 1:45 PM EST): Patient is here for a preoperative exam Patient is scheduled for:Cataract Surgery Right Eye February 06, 2023 And Left Eye 03/01/2023 [facility] [address] [place] [address] EXT [phone] ([place]) Date of procedure: February [...] for a follow up Patient seen at [facility] 11/07/2023 where she presented with right sided [...] PT. Previously pt was referred to [facility] for evaluation, they tried contacting pt to [...] to go. She was seen 03/15/2024 at [facility] in [place] for Low back pain, they recommended evaluation at [facility] for PT and consideration of steroid injections Last visit she told me she was not interested in injections or surgical interventions She is undergoing PT with good results, would like to continue Assessment & Plan (03/16/2024 1:14 PM EST): Telehealth Patient seen at [facility] 11/07/2023 where she presented with right sided [...] EST): Patient here after recently seen at [facility] 11/07/2023 where she presented with right sided [...] EST): Patient here after recently seen at [facility] where she presented with left sided back [...] EDT): Patient here after recently seen at [facility] where she presented with left sided back [...] 09/19 Chest discomfort 09/19/2022 Assessment & Plan (12/21/2024 10:02 AM EDT): Patient here for a follow [...] done, she then proceeded to travel to [facility] before despite my recommendation not to travel until cardiac work up completed. She finally saw the table top tile setter 05/03/2019 who recommended a stress test, an ECHO and a Holter monitor. Pt did not do any of the tests because back then she was concerned about going to the Hospital due to Covid-19. She subsequently brought me the results of a stress test [place] Previously I explained to her that given that she was complaining of chest pain she needed to be re-evaluated. She had an appointment with Cardiology but she decided to re-schedule it for April., and subsequently missed Last visit again I discussed with her and her daughter the importance of seeing the table top tile setter due to her c/o intermittent chest pain. [...] EKG component of the test reported separately. Assessment & Plan (09/23/2024 11:28 AM EDT): [...] done, she then proceeded to travel to [facility] before despite my recommendation not to travel until cardiac work up completed. She finally saw the table top tile setter 05/03/2019 who recommended a stress test, an ECHO and a Holter monitor. Pt did not do any of the tests because back then she was concerned about going to the Hospital due to Covid-19. She subsequently brought me the results of a stress test and [place] of [place] were normal Previously I explained to her that given that she was complaining of chest pain she needed to be re-evaluated. She had an appointment with Cardiology but she decided to re-schedule it for April., and subsequently missed Last visit again I discussed with her and her daughter the importance of seeing the table top tile setter due to her c/o intermittent chest pain. [...] she then proceeded to travel to [facility] before despite my recommendation not to travel until cardiac work up completed. She finally saw the table top tile setter 05/03/2019 who recommended a stress test, an ECHO and a Holter monitor. Pt did not do any of the tests because back then she was concerned about going to the Hospital due to Covid-19. She subsequently brought me the results of a stress test and [place] both of [place] were normal Last visit I explained to her that given that she was complaining of chest pain she needed to be re-evaluated. She had an appointment with Cardiology but today she tells me she decided to re-schedule it for April. Again I discussed with her and her daughter the importance of seeing the table top tile setter due to her c/o intermittent chest pain. [...] work up completed. She finally saw the table top tile setter 05/03/2019 who recommended a stress test, an ECHO and a Holter monitor. Pt did not do any of the tests because back then she was concerned about going to the Hospital due to Covid-19. She subsequently brought me the results of a stress test and [place] of [place] were normal Last visit I explained to her that given that she was complaining of chest pain she needed to be re-evaluated. She had an appointment with Cardiology but today she tells me she decided to re-schedule it for April. Again I discussed with her and her daughter the importance of seeing the table top tile setter due to her c/o intermittent chest pain. [...] done, she then proceeded to travel to [facility] before despite my recommendation not to travel until cardiac work up completed. She finally saw the table top tile setter 05/03/2019 who recommended a stress test, an ECHO and a Holter monitor. Pt did not do any of the tests because back then she was concerned about going to the Hospital due to Covid-19. She subsequently brought me the results of a stress test [place] of [place] were normal Last visit I explained to her that given that she was complaining of chest pain she needed to be re-evaluated. She had an appointment with Cardiology but today she tells me she decided to re-schedule it for April. Again I discussed with her and her daughter the importance of seeing the table top tile setter due to her c/o intermittent chest pain [...] she then proceeded to travel to [facility] before despite my recommendation not to travel until cardiac work up completed. She finally saw the table top tile setter 05/03/2019 who recommended a stress test, an ECHO and a Holter monitor. Pt did not do any of the tests because back then she was concerned about going to the Hospital due to Covid-19. She subsequently brought me the results of a stress test and [place] both of which were normal Today [...] done, she then proceeded to travel to [facility] before despite my recommendation not to travel until cardiac work up completed. She finally saw the table top tile setter 05/03/2019 who recommended a stress test, an ECHO and a Holter monitor. Pt did not do any of the tests because back then she was concerned about going to the Hospital due to Covid-19. She subsequently brought me the results of a stress test and [place] of [place] were normal Today I have explained to her that given that she is complaining of chest pain she needs to be evaluated to do an EKG and have a physical examination. I have asked her to come in to our [facility] or to present herself to her nearest ER. She told me she would come to our [facility] on Friday I explained to [...] in the ER. Pt agreeable with plan Acute non intractable tension-type headache 04/2022 Assessment [...] previously c/o feeling very anxious while in [facility]. She was seen there and was started on Paxil , and propranolol 10 mg po daily ( although she had never mentioned to me that she was taking Propranolol) She is no longer taking Paxil , but she told me on a previous visit that she was taking the Propranolol as needed She was referred to [facility] but patient decided she was not [...] palpitations, dose lowered again with good results [facility] care 02/25/2022 Assessment & Plan (12/21/2024 10:05 AM EDT): Mammogram: 12/15/2024 Normal. Pap Smear: ABNL: 11/25/2017 + hpv Repeat 03/23/2019 NEGATIVE HPV NEGATIVE at [facility], repeat here 07/12/2020 Colonoscopy: 06/27/2020 Assessment & Plan (09/23/2024 11:04 AM EDT): Mammogram: 11/20/2023 Normal. Needs a repeat Pap Smear: ABNL: 11/25/2017 + hpv Repeat 03/23/2019 NEGATIVE HPV NEGATIVE at [facility], repeat here 07/12/2020 Colonoscopy: 06/27/2020 Assessment & Plan (02/05/2024 1:26 PM EST): Mammogram: 11/20/2023 Normal. Pap Smear: ABNL: 11/25/2017 + hpv Repeat 03/23/2019 NEGATIVE HPV NEGATIVE at [facility], repeat here 07/12/2020 Colonoscopy: 06/27/2020 Assessment & Plan (09/02/2023 9:19 AM EDT): Mammogram: 10/08/2022 Normal. Will repeat Pap Smear: ABNL: 11/25/2017 + hpv Repeat 03/23/2019 NEGATIVE HPV NEGATIVE at [facility], repeat here 07/12/2020 Colonoscopy: 06/27/2020 Assessment & Plan (03/25/2023 11:24 AM EST): Mammogram: 10/08/2022 Normal Pap Smear: ABNL: 11/25/2017 + hpv Repeat 03/23/2019 NEGATIVE HPV NEGATIVE at [facility], repeat here 07/12/2020 Colonoscopy: 06/27/2020 Assessment & Plan (02/25/2022 2:39 PM EST): Mammogram: 10/02/2021 Normal Pap Smear: ABNL: 11/25/2017 + hpv Repeat 03/23/2019 NEGATIVE HPV NEGATIVE at [facility], repeat here 07/12/2020 Colonoscopy: 06/27/2020 [...] her parotids negative. seen by ENT at [facility], 01/04/2021 ENT recommended No further [...] mg po daily Might consider referral to [facility] Dry eye syndrome of both eyes 06/08/2018 Acquired hypothyroidism 03/09/2018 Assessment & Plan (12/21/2024 10:04 AM EDT): Patient doing well She is now on levothyroxine 75 mcg po daily Lab Results Component Value Date TSH 1.76 02/09/2024 Normal Continue with current regimen, repeat TFTs Assessment & Plan (05/11/2024 11:27 AM EDT): [...] (09/19/2022 5:42 PM EDT): Used to follow w/[employer] [employer] in [facility] We received a Pap smear report from 03/23/2019 that was NEGATIVE with HPV negative as well Pt was seen by Julisa Mcknight repeat Pap 08/07/2021 showed ASCUS HPV neg. Seen by Dr Oliverio Camarillo for colposcopy completed 09/07/2021 Assessment & Plan (02/25/2022 2:22 PM EST): Used to follow w/[employer] in [facility] We received a Pap smear report from [...] past with knee injections, Was seen at [facility], they recommended surgical intervention per her report but if not to try PT. Previous visit she told me she wanted to be referred to a local auto wheel alignment specialist She was last seen at [facility] they recommended steroid injections or consideration of surgical intervention. Pt seeing a different orthopaedist now [facility] seen 07/14/2024 received steroid injection Assessment & Plan (02/04/2023 1:42 PM EST): Pt with chronic bilateral knee pain, has done well in the past with knee injections, Was seen at [facility], they recommended surgical intervention per her report but if not to try PT. Previous visit she told me she wanted to be referred to a local auto wheel alignment specialist She was last seen at [facility] they recommended steroid injections or consideration of surgical intervention. Pt wanted to go to PT, today she tells me she wanted to wait until after her cataract surgery Assessment & Plan (12/24/2022 10:16 AM EDT): Pt with chronic bilateral knee pain, has done well in the past with knee injections, Was seen at [facility], they recommended surgical intervention per her report but if not to try PT. Previous visit she told me she wanted to be referred to a local auto wheel alignment specialist She was last seen at [facility] they recommended steroid injections or consideration of surgical intervention. Pt wants to go to PT Assessment & Plan (02/25/2022 2:21 PM EST): Pt with chronic bilateral knee pain, has done well in the past with knee injections, Was seen at [facility] orth[facility], they recommended surgical intervention per her report but if not to try PT. Previous visit she told me she wanted to be referred to a local auto wheel alignment specialist She was referred to Dr Liao at [facility]. Resolved Problems Problem Noted Date Diagnosed Date Resolved Date Earache on right 09/19/2022 12/21/2024 Assessment & Plan (09/19/2022 5:41 PM EDT): Pt with c/o right earache I have recommended for her to come in to [facility] to be evaluated She needs to be examined to rule out an infection Encounters Date Type Department Care Team Description 12/21/2024 10:15 AM EDT Office Visit [facility] [address] [place] [id number] Conner Méndez MD Chest discomfort (Primary Dx); Gastroesophageal reflux disease without esophagitis; Chronic pain of both knees; Acquired hypothyroidism; Preventative health care; Papanicolaou smear of vagina with atypical squamous cells of undetermined significance (ASC-US); Chronic neck pain; Anxiety; Primary hypertension; Primary insomnia 12/21/2024 Travel 12/07/2024 Orders Only [facility] External Provider, [facility] 12/01/2024 10:15 AM EDT Office Visit [address] [address] Rupal Jain, IOS PROGRAMMER Mastalgia (Primary Dx); Subcutaneous mass; Encounter for immunization 12/01/2024 Refill [facility] [address] [place] [address] Conner Méndez MD Chronic neck pain 12/01/2024 Travel 11/30/[address] [address] Conner Méndez MD chartprep 11/25/[address] [address] Conner Méndez MD Referral 11/21/2024 Refill [facility] [address] [place] [address] Conner Méndez MD Primary insomnia 09/23/2024 10:15 AM EDT Office Visit [facility] [address] [place] [address] Conner Méndez MD Chronic neck pain (Primary Dx); Primary osteoarthritis of right knee; Chest discomfort; Gastroesophageal reflux disease without esophagitis; Dysphagia, unspecified type; Pain around toenail, right foot; Preventative health care; Breast cancer screening by mammogram 09/23/2024 Travel 09/22/2024 Telephone [facility] [address] [place] [address] Conner Méndez MD CHART PREP from Last [...] Mass Index 31.1 12/21/2024 10:11 AM EDT Plan of Treatment Health Maintenance Due [...] 2024 03/04/2022, 10/08/2021, 06/21/2020, Additional history exists SDOH Screening 05/11/2025 05/11/2024 DTaP/Tdap/Td Vaccines (2 - Td or Tdap) 05/25/2025 05/26/2015 Depression Screening 09/23/2025 09/23/2024, 09/24/19 25 Disability Screening 09/23/2025 09/23/2024 Mammogram 12/15/2025 12/15/2024, 11/25, 11/20/2023, Additional history exists Alcohol/Substance Use Screening 12/21/2025 12/21/2024 Tobacco Screening 12/21/2025 12/21/2024 Lipid Panel 09/02/2028 09/03/2023 Colonoscopy 06/27/2030 06/27/2020, [...] Procedure Name Priority Date/Time Associated Diagnosis Comments BI US BREAST LIMITED BILATERAL Routine 12/15/2024 12:10 PM EDT BI MAMMOGRAM DIAGNOSTIC TOMOSYNTHESIS BILATERAL Routine 12/15/2024 11:50 AM EDT Subcutaneous mass Mastalgia NM HEART PERFUSION SPECT STRESS AND REST Routine 12/07/2024 9:17 AM EDT ECG 12-LEAD Routine 09/28/2024 5:02 PM EDT Chest discomfort LIPID PANEL, STANDARD Routine 09/03/2023 10:21 AM [...] Recently Relevant to Health Maintenance Results * BI US Breast Limited Bilateral (12/15/2024 12:10 PM EDT) Anatomical Region Laterality Modality Breast Bilateral Ultrasound 12/15/2024 12:1 0 PM EDT Narrative 12/15/2024 3:52 PM EDT [facility] [address] [place] [address] Ultrasound Report Signed Patient: Rosemary Mcgovern MR#: [id number] 5 : 1960 Acct:[id number] Age/Sex: 64 / F ADM Date: 12/15/24 Loc: HO.MAMMO Attending Dr: Conner Smith MD Ordering Physician: Rupal Jain Date of Service: 12/15/24 Procedure(s): US Breast BI Limited Mamm Only Accession Number(s): [id number] cc: Conner Smith MD; Rupal Jain Reason for Exam: BILAT BR PAIN/SWELLING/ DUE FOR YEARLY EXAMINATION: MM DIAGNOSTIC DIGITAL BREAST TOMOSYNTHESIS, BILATERAL Limited right breast ultrasound. CLINICAL INFORMATION: Right breast pain lower inner quadrant. Bilateral nipple discharge. COMPARISON: Mammography: Comparison is made with relevant prior exams. TECHNIQUE: Digital breast mammography with tomosynthesis is performed in both the craniocaudal and mediolateral oblique views along with computer-aided detection (CAD). FINDINGS: There are scattered areas of fibroglandular density. Bilateral circumscribed oval masses which wax and wane consistent with benign fibrocystic changes. Right: Triangular marker lower inner quadrant without underlying abnormal finding at site of patient's pain. Postsurgical changes. Focal asymmetry retroareolar region middle to posterior depth is stable dating back to 2020. Targeted color Doppler ultrasound scanning in the right breast area of patient's pain from 2-6 o'clock demonstrates normal fibronodular breast tissue. Targeted color Doppler ultrasound scanning in the right retroareolar region area of yellow nipple discharge demonstrates normal follicular breast tissue. Left: No suspicious masses calcifications or other abnormal findings. Targeted color Doppler ultrasound scanning in the retroareolar region area of nipple discharge demonstrates normal fibronodular breast tissue. Results are provided to the patient at time of visit by the technologist. US/US Breast BI Limited Mamm Only IMPRESSION: Left: No mammographic or sonographic abnormal finding to account for the patient's nipple discharge. Recommend clinical evaluation follow-up. Right: No mammographic or sonographic abnormal finding to account for the patient's right breast pain. Recommend clinical evaluation follow-up. No mammographic or sonographic abnormal finding to account for the patient's nipple discharge. Recommend clinical evaluation follow-up. ASSESSMENT: BI-RADS Category 1: Negative RECOMMENDATION: 1 year F/U This patient's information was entered into a reminder system with a target due date for their next mammogram. Electronically signed by: Ericka Guerrier DO 12/15/2024 03:50 PM EDT RP Dictated By: Ericka Guerrier DO Signed By: <Electronically signed by Ericka uGerrier DO in OV> 12/15/24 1550 DD/ 1210 TD/TT: 12/15/24 1239 Aerobics Instructor: Procedure Note Donotuseinterpreter, Image - 12/15/2024 [facility] [address] [place] [address] Ultrasound Report Signed Patient: Iain Mcgovern#: [id number] 5 : 1960cct:[id number] Age/Sex: 64 / FADM Date: 12/15/24 Loc: HO.MAMMO Attending Dr: Conner Smith MD Ordering Physician: Rupal Jain Date of Service: 12/15/24 Procedure(s): US Breast BI Limited Mamm Only Accession Number(s): [id number] cc: Conner Smith MD; Rupal Jain Reason for Exam: BILAT BR PAIN/SWELLING/ DUE FOR YEARLY EXAMINATION: MM DIAGNOSTIC DIGITAL BREAST TOMOSYNTHESIS, BILATERAL Limited right breast ultrasound. CLINICAL INFORMATION: Right breast pain lower inner quadrant. Bilateral nipple discharge. COMPARISON: Mammography: Comparison is made with relevant prior exams. TECHNIQUE: Digital breast mammography with tomosynthesis is performed in both the craniocaudal and mediolateral oblique views along with computer-aided detection (CAD). FINDINGS: There are scattered areas of fibroglandular density. Bilateral circumscribed oval masses which wax and wane consistent with benign fibrocystic changes. Right: Triangular marker lower inner quadrant without underlying abnormal finding at site of patient's pain. Postsurgical changes. Focal asymmetry retroareolar region middle to posterior depth is stable dating back to 2020. Targeted color Doppler ultrasound scanning in the right breast area of patient's pain from 2-6 o'clock demonstrates normal fibronodular breast tissue. Targeted color Doppler ultrasound scanning in the right retroareolar region area of yellow nipple discharge demonstrates normal follicular breast tissue. Left: No suspicious masses calcifications or other abnormal findings. Targeted color Doppler ultrasound scanning in the retroareolar region area of nipple discharge demonstrates normal fibronodular breast tissue. Results are provided to the patient at time of visit by the technologist. US/US Breast BI Limited Mamm Only IMPRESSION: Left: No mammographic or sonographic abnormal finding to account for the patient's nipple discharge. Recommend clinical evaluation follow-up. Right: No mammographic or sonographic abnormal finding to account for the patient's right breast pain. Recommend clinical evaluation follow-up. No mammographic or sonographic abnormal finding to account for the patient's nipple discharge. Recommend clinical evaluation follow-up. ASSESSMENT: BI-RADS Category 1: Negative RECOMMENDATION: 1 year F/U This patient's information was entered into a reminder system with a target due date for their next mammogram. Electronically signed by: Ericka Guerrier DO 12/15/2024 03:50 PM EDT Dictated By: Ericka Guerrier DO Signed By: <Electronically signed by Ericka Guerrier DO in OV> 12/15/24 1550 DD/ 1210 TD/TT: 12/15/24 1239 Aerobics Instructor: us Rupal RIZVI IMG US PROCEDURES Final Result * BI Mammogram Diagnostic Tomosynthesis Bilateral (12/15/2024 11:50 AM EDT) Anatomical Region Laterality Modality Breast Bilateral Mammography 12/15/2024 11:5 0 AM EDT Narrative 12/15/2024 3:52 PM EDT [facility] [address] [place], [place] [address] Mammography Report Signed Patient: Rosemary Mcgovern MR#: [id number] 5 : 1960 Acct:[id number] Age/Sex: 64 / F ADM Date: 12/15/24 Loc: HO.MAMMO Attending Dr: Conner Smith MD Ordering Physician: Rupal Jain Results: 1Negat pool Date of Service: 12/15/24 Follow Up: 1 Year From Orig ina Mammogram Procedure(s): MM tomosynthesis diagnostic BI Accession Number(s): [id number] cc: Conner Smith MD; Rupal Jain Reason For Exam: BILAT BR PAIN/SWELLING/ DUE FOR YEARLY EXAMINATION: MM DIAGNOSTIC DIGITAL BREAST TOMOSYNTHESIS, BILATERAL Limited right breast ultrasound. CLINICAL INFORMATION: Right breast pain lower inner quadrant. Bilateral nipple discharge. COMPARISON: Mammography: Comparison is made with relevant prior exams. TECHNIQUE: Digital breast mammography with tomosynthesis is performed in both the craniocaudal and mediolateral oblique views along with computer-aided detection (CAD). FINDINGS: There are scattered areas of fibroglandular density. Bilateral circumscribed oval masses which wax and wane consistent with benign fibrocystic changes. Right: Triangular marker lower inner quadrant without underlying abnormal finding at site of patient's pain. Postsurgical changes. Focal asymmetry retroareolar region middle to posterior depth is stable dating back to 2020. Targeted color Doppler ultrasound scanning in the right breast area of patient's pain from 2-6 o'clock demonstrates normal fibronodular breast tissue. Targeted color Doppler ultrasound scanning in the right retroareolar region area of yellow nipple discharge demonstrates normal follicular breast tissue. Left: No suspicious masses calcifications or other abnormal findings. Targeted color Doppler ultrasound scanning in the retroareolar region area of nipple discharge demonstrates normal fibronodular breast tissue. Results are provided to the patient at time of visit by the technologist. MM/MM tomosynthesis diagnostic BI IMPRESSION: Left: No mammographic or sonographic abnormal finding to account for the patient's nipple discharge. Recommend clinical evaluation follow-up. Right: No mammographic or sonographic abnormal finding to account for the patient's right breast pain. Recommend clinical evaluation follow-up. No mammographic or sonographic abnormal finding to account for the patient's nipple discharge. Recommend clinical evaluation follow-up. ASSESSMENT: BI-RADS Category 1: Negative RECOMMENDATION: 1 year F/U This patient's information was entered into a reminder system with a target due date for their next mammogram. Electronically signed by: Ericka Guerrier DO 12/15/2024 03:50 PM EDT Dictated By: Ericka Guerrier DO Signed By: <Electronically signed by Ericka Guerrier DO in OV> 12/15/24 1550 DD/ 1150 TD/TT: 12/15/24 1215 Aerobics Instructor: Procedure Note Donotuseinterpreter, Image - 12/15/2024 [facility] [address] [place] [address] Mammography Report Signed Patient: Iain Mcgovern#: [id number] 5 : 1960cct:[id number] Age/Sex: 64 / FADM Date: 12/15/24 Loc: HO.MAMMO Attending Dr: Conner Smith MD Ordering Physician: Rupal Jain FNPResults: 1Negat pool Date of Service: 12/15/24Follow Up: 1 Year From [facility] Mammogram Procedure(s): MM tomosynthesis diagnostic BI Accession Number(s): [id number] cc: Conner Smith MD; Rupal Jain IOS PROGRAMMER Reason For Exam: BILAT BR PAIN/SWELLING/ DUE FOR YEARLY EXAMINATION: MM DIAGNOSTIC DIGITAL BREAST TOMOSYNTHESIS, BILATERAL Limited right breast ultrasound. CLINICAL INFORMATION: Right breast pain lower inner quadrant. Bilateral nipple discharge. COMPARISON: Mammography: Comparison is made with relevant prior exams. TECHNIQUE: Digital breast mammography with tomosynthesis is performed in both the craniocaudal and mediolateral oblique views along with computer-aided detection (CAD). FINDINGS: There are scattered areas of fibroglandular density. Bilateral circumscribed oval masses which wax and wane consistent with benign fibrocystic changes. Right: Triangular marker lower inner quadrant without underlying abnormal finding at site of patient's pain. Postsurgical changes. Focal asymmetry retroareolar region middle to posterior depth is stable dating back to 2020. Targeted color Doppler ultrasound scanning in the right breast area of patient's pain from 2-6 o'clock demonstrates normal fibronodular breast tissue. Targeted color Doppler ultrasound scanning in the right retroareolar region area of yellow nipple discharge demonstrates normal follicular breast tissue. Left: No suspicious masses calcifications or other abnormal findings. Targeted color Doppler ultrasound scanning in the retroareolar region area of nipple discharge demonstrates normal fibronodular breast tissue. Results are provided to the patient at time of visit by the technologist. MM/MM tomosynthesis diagnostic BI IMPRESSION: Left: No mammographic or sonographic abnormal finding to account for the patient's nipple discharge. Recommend clinical evaluation follow-up. Right: No mammographic or sonographic abnormal finding to account for the patient's right breast pain. Recommend clinical evaluation follow-up. No mammographic or sonographic abnormal finding to account for the patient's nipple discharge. Recommend clinical evaluation follow-up. ASSESSMENT: BI-RADS Category 1: Negative RECOMMENDATION: 1 year F/U This patient's information was entered into a reminder system with a target due date for their next mammogram. Electronically signed by: Ericka Guerrier DO 12/15/2024 03:50 PM EDT Dictated By: Ericka Guerrier DO Signed By: <Electronically signed by Ericka Guerrier DO in OV> 12/15/24 1550 DD/ 1150 TD/TT: 12/15/24 1215 Aerobics Instructor: us Rupal Jain IOS PROGRAMMER IMG BI PROCEDURES Final Result * NM heart perfusion SPECT stress and rest (12/07/2024 9:17 AM EDT) Anatomical Region Laterality Modality Body Nuclear Medicine 12/07/2024 9:17 AM EDT Narrative 12/09/2024 4:26 PM EDT [address] [address] Nuclear Medicine Report Signed Patient: Rosemary Mcgovern MR#: [id number] 5 : 1960 Acct:[id number] Age/Sex: 64 / F ADM Date: 12/07/24 Loc: HO.CARD Attending Dr: Tommy Wesley MD Ordering Physician: Tommy Wesley MD Date of Service: 12/07/24 Procedure(s): NM jackeline perf SPECT rest str Accession Number(s): [id number] cc: Conner Smith MD; Tommy Wesley MD [...] 12/09/24 1623 DD/ 0917 TD/TT: 12/09/24 1100 Aerobics Instructor: Procedure Note Donotuseinterpreter, Image - 12/09/2024 [place] [address] Nuclear Medicine Report Signed Patient: Iain Mcgovern#: [id number] 5 : 1960cct:[id number] Age/Sex: 64 / FADM Date: 12/07/24 Loc: .[facility] Attending Dr: Tommy Wesley MD Ordering Physician: Tommy Wesley MD Date of Service: 12/07/24 Procedure(s): NM jackeline perf SPECT rest str Accession Number(s): [id number] cc: Conner Smith MD; Tommy Wesley MD [...] 12/09/24 1623 DD/ 0917 TD/TT: 12/09/24 1100 Aerobics Instructor: [facility] External Provider IMG NM PROCEDURES Final Result * ECG 12 lead (09/28/2024 5:02 PM EDT) Narrative Conner Méndez MD - 09/28/2024 5:02 PM EDT NSR, no acute st t changes Conner Guerin MD ECG ORDERABLES Final Result * Lipid Panel, Standard (09/03/2023 10:21 AM EDT) Triglycerides 65 <150 mg/dL [facility] Comment:Desirable Triglyceri de: less than 150 mg/dLBorderline High Triglyceride 150-199 mg/dLHigh Triglyceride: 200-499 mg/dLVery High Triglyceride: greater than or equal to 5OO mg/dL Cholesterol 176 <200 mg/dL [facility] Comment:Desirable Cholestero l: less than 200 mg/dLBorderline High Cholesterol: 200-239 mg/dLHigh Cholesterol: greater than 239 mg/dL LDL Cholesterol Calculated 98 <100 mg/dL [facility] Comment:Desirable LDL: less than 100 mg/dLNear Optimal/Above Optimal LDL: 110- 129 mg/dLBorderline High LDL: 130-159 mg/dLHigh LDL: 160-189 mg/dLVery High LDL: greater than or equal to 190 mg/dL HDL Cholesterol 65 >40 mg/dL [facility] Comment:Desirable HDL: great er than 40 mg/dL Note: This HDL assay may give artificially low results in patients with liver disease. Blood Venous blood specimen / Unknown 09/03/2023 10:21 AM EDT 09/03/2023 12:58 PM EDT us Conner Guerin MD LAB BLOOD ORDERABLES Final Result [facility] [address] [place] [address] [phone] * (ABNORMAL) THINPREP TIS PAP AND HPV mRNA E6/E7 WITH REFLEX TO HPV 16,18/45 (08/07/2021 1:17 PM EDT) Clinical Information: [facility] COMMENT SEE COMMENT [facility] [...] has been evaluated with computer assisted technology. [facility] Wireless Manager : SEE COMMENT [facility] Comment: ORAL FERRO(ASCP) CT screening location: [place] [address] General Categorization: EPITHELIAL CELL ABNORMALITY(A) [facility] HPV nRNA E6/E7 Not Detected Not Detected [facility] Comment: Methodology: Vehicle Window Tinter-Mediated Amplification This assay detects E6/E7 viral messenger RNA (mRNA) from 14 high-risk HPV types (16,18,31,33,35,39,45,51,52,56,58,59,66,68). Cervical sources are required for HPV testing. If a vaginal source from a patient who has had a total hysterectomy with removal of cervix was submitted, please contact the testing laboratory for alternative testing options. For additional information, please refer to http://education.CamPlex/faq/BDM656q4 (This link if provided for information/ educational purposes only.) Interpretation/R esult: SEE COMMENT(A) [facility] Comment: Atypical Squamous Cells of Undetermined Significance (ASC-US) Atrophic pattern; predominantly parabasal cells LMP: [facility] PATHOLOGIST: SEE COMMENT [facility] Comment: Myrna Ng MD, PhD, Board Certified in Anatomic and Clinical Pathology (electronic signature) Consulting Pathologist [facility] [address] [place] [phone] Prev. BX: 2018 LEEP: EMILIANO [facility] Prev. PAP: NIL/NEG [facility] SOURCE: None given [facility] Statement Of Adequacy: SATISFACTORY FOR EVALUATION [facility] 08/07/2021 1:17 PM EDT Julisa HOWE LAB PATHOLOGY ORDERABLES Final Result [facility] [address] * Colonoscopy (06/27/2020) Colonoscopy Normal Normal 06/27/2020 Narrative Kady Linn - 06/27/2020 10:58 AM EDT Recommended 10 year follow up ( see scanned notes) Historical Provider HEALTH MAINTENANCE Edited Result - Final from Last 3 Months or Most Recently Relevant to Health Maintenance Insurance [facility] ST[facility] ADULT Care Teams Baseball Coach Relationship Specialty Start Date End Date Cnoner Méndez MD [address] [place] [id number] PCP - General Internal Medicine 12/08/18
--- OUTSIDE RECORDS SUMMARY | 2024-12-21 14:16 | XMS_ITS | Clinical Summary ---
Author Organization [facility] Address [address] [place] [address] Care Team Providers Care Ranch Hand Supervisor Name Role Phone Conner Smith Primary Care [...] Screening 1960 HPV and Pap Smear 1960 Sigmoidoscopy 1960 Mammogram 2001 Pneumococcal Vaccine: 50+ Years (1 of 1 - PCV) 2011 Zoster Vaccines (1 of 2) 2011 Cervical Cancer Screening 03/23/2022 Pap Smear 03/23/2022 03/23/2019, 10/03/2017, 02/06/2017 Alcohol/Substance Use Screening 02/25/2024 COVID-19 Vaccine (3 [...] this topic Procedures * Due to [place] [employer] law, this organization might not be sharing negative HIV tests. Procedure Name Priority Date/Time Associated Diagnosis Comments COLONOSCOPY 06/27/2020 PAP Routine 03/23/2019 2:47 PM EST Atypical squamous cells of undetermined significance on cytologic smear of cervix (ASC-US) from Last 3 Months or Most Recently Relevant to Health Maintenance Results * Due to [place] [employer] law, this organization might not be sharing negative HIV tests. * COLONOSCOPY (06/27/2020) Narrative Procedure Note Charli Jaramillo MD - 06/27/2020 2:09 PM EDT [facility] Patient Name: Rosemary Mcgovern Procedure Date: 06/27/2020 2:09 PM Date of : 1960 Age: 60 Room: [place] [address] Gender: Female Note Status: Finalized Attending MD: [...] PM EST) Specimen Adequacy Satisfactory for evaluation [facility] MANUAL 03/31/2019 1:56 PM EST [facility] Pathologist Cytology Interpretation Negative for intraepithelial lesion or malignancy. [facility]UAL 03/31/2019 1:56 PM EST [facility] at 1356 EST Comment:This is the result o f a morphological screening test with an inherent possibility of a false negative interpretation. Food Order Delivery Runner Statement This Pap test was examined by the [facility], [email or web address], [place], [place]. This Pap test was examined in accordance with the [facility] Cytopathology Laboratory written policy, which incorporates all CLIA mandates. Screening guidelines can be found in Am J Clin Pathol 2012;137:516-542. We endorse the practice guidelines developed by ASCCP and published in the Journal Lower Genital Tract Disease 17(5):S1-S27 (2013). [facility] MANUAL 03/31/2019 1:56 PM EST [facility] Clinical History ascus hpv + [facility] MANUAL 03/31/2019 1:56 PM EST [facility] HPV High Risk DNA Subtypes NEGATIVE [facility] MANUAL 03/31/2019 1:56 PM EST [facility] Test Description Specimens were tested for high risk HPV using the FDA approved Digene Hybrid Capture II kit, in the Diagnostic Molecular Oncology Lab at [facility]. This test can detect HPV [...] abnormality. We endorse the recommendations of the [place] Society for Colposcopy and Cervical Pathology for management of pap test results, available at www.asccp.org. ASCCP guidelines also recommend HPV 16/18 genotyping in patients over the age of 30 who have had positive high risk HPV testing, but have a negative morphologic Pap test: (http://www.asccp .org/consensus.sh tml). [facility] MANUAL 03/31/2019 1:56 PM EST [facility] ASR [...] to perform high complexity clinical laboratory testing. [facility] MANUAL 03/31/2019 1:56 PM EST [facility] Resulting Agency Case was signed out at [facility], Department of Pathology, [employer] 3 CLIA [id number] [facility] MANUAL 03/31/2019 1:56 PM EST [facility] Report Header Gynecologic Cytology Report Case: [id number] Authorizing Provider: Eva Mcclain MD Collected: 03/23/2019 1447 Ordering Location: [facility] Received: 03/23/[address] [place] [address] Obstetrics and Gynecology First Screen: Darrel Arjun Karen Rescreen: Augustin Moreland Specimen: Screening ThinPrep Pap, Cervix/Endocervix 03/31/2019 1:56 PM EST [facility] Brushing Cervix uteri structure / Unknown Non-Blood Collection / Unknown 03/23/2019 2:47 PM EST 03/23/2019 4:21 PM EST us Eva Mcclain MD LAB PATHOLOGY/CYTOLOGY ORDER HAYDEE Final Result [facility] [address] [place] [address] from Last 3 Months or Most Recently Relevant to Health Maintenance Insurance [employer] Care Teams Ranch Hand Supervisor Relationship Specialty Start Date End Date Conner Smith [address] [place] [id number] PCP - General Internal Medicine 09/15/19
== END 2024-12-21 11:03 | disposition home or self-care (01) ==
LOC: HO.HHCL 11:02
PROVIDERS: PCP Internal Medicine; Visit Provider Internal Medicine
DX: E03.9 Hypothyroidism, unspecified (principal)
CPT/HCPCS: 36415; 84443